=== PATIENT | male | born 1990 | race Caucasian/White ===

== ENCOUNTER 2018-12-22 19:43 | Inpatient (IN) | payer MEDICAID, OTHER ==
--- NOTE | 2018-12-22 20:33 | ED ---
General Adult HPI - General Chief complaint: Psychiatric Symptoms Stated complaint: Mental Health Time Seen by Provider: 12/22/18 20:04 Source: police, RN notes reviewed, old records reviewed Mode of arrival: ambulatory Limitations: no limitations - History of Present Illness Initial comments: 28-year-old male presents for psychiatric evaluation. Patient is uncertain why he was here, police came to his home and picked him up. He has been petitioned, states he's been noncompliant with his medications. No reported suicidal or homicidal ideation. Patient has no physical complaints. He does appear paranoid on exam. No previous psychiatric admissions at this institution. - Related Data Allergies Allergy/AdvReac Type Severity Reaction Status Date / Time No Known Allergies Allergy Verified 12/22/18 19:49 Review of Systems ROS Statement: Those systems with pertinent positive or pertinent negative responses have been documented in the HPI. ROS Other: All systems not noted in ROS Statement are negative. Past Medical History Past Medical History: No Reported History History of Any Multi-Drug Resistant Organisms: None Reported Past Surgical History: No Surgical Hx Reported Past Psychological History: Anxiety, Bipolar, Depression Smoking Status: Current some day smoker Past Alcohol Use History: None Reported Past Drug Use History: None Reported General Exam Limitations: no limitations General appearance: alert, in no apparent distress Head exam: Present: atraumatic, normocephalic Eye exam: Present: normal appearance, PERRL ENT exam: Present: normal exam Neck exam: Present: normal inspection. Absent: tenderness Respiratory exam: Present: normal lung sounds bilaterally. Absent: respiratory distress, wheezes Cardiovascular Exam: Present: regular rate, normal rhythm GI/Abdominal exam: Present: soft. Absent: distended, tenderness Neurological exam: Present: alert, oriented X3 Psychiatric exam: Present: flat affect. Absent: suicidal ideation Skin exam: Present: warm, dry, intact. Absent: cyanosis, diaphoretic Course Vital Signs 12/22/18 19:44 Temperature 97.7 F Pulse Rate 98 Respiratory 18 Rate Blood Pressure 133/74 O2 Sat by Pulse 98 Oximetry Medical Decision Making - Medical Decision Making Patient evaluated by EPS, further history is obtained from the patient's mother, he is a paranoid schizophrenic and has had recent admission at an outside facility. He is not taking his medications, not eating, sleeping in the basement. It is felt at this time that the patient will be admitted for further psychiatric evaluation and treatment. Disposition Clinical Impression: Acute psychosis, Depression Disposition: ADMITTED IP TO THIS HOSP Condition: Stable Is patient prescribed a controlled substance at d/c from ED?: No Referrals: None,Stated [Primary Care Provider] - 1-2 days Decision to Admit Reason: Admit from EC Decision Date: 12/22/18 Decision Time: 21:22
[2018-12-22] MEDS ORDERED: LORazepam 2 MG/ML INJ IM STA (21:22)
[2018-12-22 21:35] LABS: Amphetamine Screen,Urine Not Detected (NotDetected); Barbiturate Screen,Urine Not Detected (NotDetected); Benzodiazepines Screen,Urine Not Detected (NotDetected); Cocaine Screen,Urine Not Detected (NotDetected); Methadone Screen, Urine Not Detected (NotDetected); Opiate Screen,Urine Not Detected (NotDetected); Oxycodone Screen, Urine Not Detected (NotDetected); Phencyclidine Screen,Urine Not Detected (NotDetected); Tricyclic Antidepressant,Urine Not Detected (NotDetected); Urn Cannabinoid Scrn Not Detected (NotDetected)
[2018-12-22] MEDS ORDERED: ACETAMINOPHEN TAB 325 MG TAB PO STA (21:37)
[2018-12-22] MEDS ORDERED: ZIPRASIDONE 20 MG VIAL IM PRN (21:44)
[2018-12-22] MEDS ORDERED: MAGNESIUM HYDROXIDE 2,400 MG/10 ML CUP PO PRN (21:44)
[2018-12-22] MEDS ORDERED: LORazepam 2 MG/ML INJ IM PRN (21:46)
[2018-12-23 00:37] VITALS: TEMP 98.2
[2018-12-23] MEDS: NICOTINE 14MG/24HR PATCH TRANSDERM SCH (10:30)
--- NOTE | 2018-12-23 10:35 | HP ---
HISTORY AND PHYSICAL DATE OF SERVICE: 12/23/2018 IDENTIFYING DATA: This patient is a 28-year-old single male admitted to the mental health unit on a pickup order for acute symptoms of psychosis. HISTORY OF PRESENT ILLNESS: The patient presents with a petition completed by the patient's mother saying "Александр has refused my request to see doctors or take any medications." The clinical certificate indicates the patient is not taking medication and is unable to understand need for treatment. The patient is found in his room. He reluctantly follows me to an interview room. He immediately begins crying but does not describe why. He makes several statements indicating "they" have said several scary things. He reports that the police told him that he was coming here to get his penis removed. He reports that he has parasites that appear to be tadpoles. During our conversation he appears to be actively responding to presumed auditory hallucinations. Several times during the session he will burst into laughter, which is out of context of the attempted conversation. He is argumentative. He indicates feeling unsafe. Nursing reports from the ER states that the patient has been isolating in his room, not taking medications. He has been sleeping with her shoes and his coat on out of fear. He is a poor historian at this time and does not appropriately participate in the rest of the interview. PAST PSYCHIATRIC HISTORY: It seems unlikely, but he denies any past history of psychiatric evaluation. When reviewing medications, he spontaneously states paliperidone but but provides no other information. Unknown if he has any history of suicide attempts. He states that he worked with an outpatient clinic in [place], but provides no further information. PAST MEDICAL HISTORY: Unknown. ALLERGIES: No known drug allergies. CHEMICAL DEPENDENCY HISTORY: He indicates that he will intermittently drink alcohol, again he does not specify a quantity or frequency. He reports no use of illicit drugs. Unknown if he has ever been admitted to an inpatient chemical dependency unit. FAMILY PSYCHIATRIC AND CHEMICAL DEPENDENCY HISTORY: Unknown. PERSONAL HISTORY: The patient is 28 years old. He states he is single with no children. He resides with his mother. He indicates he has one brother and one sister. He is unemployed. It is unknown if he has a disability income. He states he has been trying to save for his own apartment, but has never received a disability check and believes someone is stealing them. LEGAL HISTORY: Unknown. ABUSE HISTORY: Unknown. He states that he has a high school education and an engineering degree from [employer]. MENTAL STATUS EXAMINATION: The patient is a male appearing his stated age. He is wearing eye glasses. He has a mustache and part of a durham. He is dressed in hospital gown. He has a disheveled appearance. Eye contact is staring in nature. As soon as he sits down he becomes tearful and weeps throughout the session. He has several episodes where he bursts into laughter in a bizarre fashion. He spontaneously describes paranoid and persecutory thoughts. He continues to refer to "they" but will not specify who that is. Many of his statements refer to him being harmed. Several times he asks me who I am talking to and he asks "where is my body." He provides no answer when asked about suicidal or homicidal thoughts or hallucinations. Insight and judgment are poor. He provides no answers to questions in terms of cognitive testing. He demonstrates no involuntary repetitive movements. He can be argumentative and mildly irritable during the session, but demonstrated no verbal or physical aggressiveness. STRENGTHS: Housing. WEAKNESSES: Noncompliance with treatment. INTELLECT: Average IMPRESSION: 1. Schizophrenia. 2. Rule out alcohol use disorder. PLAN: The patient has been admitted to the mental health unit involuntarily. I will complete a second clinical certificate. The patient is demonstrating acute symptoms of psychosis. His thought process is disorganized. He is requiring treatment at this time. I will offer Invega 6 mg daily. Attempts were made to discuss the medication with him. Should he refuse we will address this further with the probate court process. He will be seen by Internal Medicine for routine history and physical exam. Social Work will attempt to meet with the patient to complete a psychosocial assessment. We will involve family in treatment and discharge planning as he will allow. MMODL / IJN: [id number] /
[2018-12-23] MEDS: PALIPERIDONE 6 MG TAB.ER.24 PO SCH (10:38)
--- NOTE | 2018-12-23 18:44 | P.MDCNMH ---
History of Present Illness H&P Date: 12/23/18 Chief Complaint: left foot pain. 28-year-old male with PMHof anxiety, bipolar and depression presents to the ED for psychiatric evaluation. [facility] is consulted for medical management of the patient. Patient currently appears delusional in his speech. Patient reports pain in his left foot along with a rash on the plantar surface of his left foot that has been ongoing for an unspecified amount of time. Patient initially stated that this occurred after walking barefoot for a long period of time in [place]. Patient then changed his mind, states that he was walking in [facility]. He also reports that he is taking showers in dirty bathrooms, might have caught an infection. Patient reports having a fever last night. Otherwise, he does not provide too much information. Patient reports that he "keeps waking up with tiny feet" and "I'm in so much trouble". Patient also appears afraid that his feet might be amputated. Near the end of questioning, patient reported that this was a waste of this time and walked out of the room. A few minutes later, I was approached by the patient requesting Adderall. Review of Systems All systems: negative Past Medical History Past Medical History: No Reported History History of Any Multi-Drug Resistant Organisms: None Reported Past Surgical History: No Surgical Hx Reported Past Psychological History: Anxiety, Bipolar, Depression Smoking Status: Current some day smoker Past Alcohol Use History: None Reported Past Drug Use History: None Reported Medications and Allergies Allergies Allergy/AdvReac Type Severity Reaction Status Date / Time No Known Allergies Allergy Verified 12/22/18 19:49 Physical Exam Vitals: Vital Signs Temp Pulse Pulse Resp BP BP Pulse Ox 12/23/18 00:37 98.2 F 12/22/18 22:00 111 H 14 130/78 12/22/18 21:38 100.0 F H 114 H 18 109/82 98 12/22/18 19:44 97.7 F 98 18 133/74 98 Intake and Output 12/23/18 12/23/18 12/23/18 06:59 14:59 22:59 Other: Weight 77 kg Patient refuses full physical exam. However, he is willing to have his foot evaluated. There is some tenderness along the plantar aspect of the left lower extremity. Yellowing of the skin around the first metatarsal joint, thickened skin. No erythema or discharge. 2+ dorsalis pedis pulses. Cranial Nerve Examination - Cranial Nerves Cranial Nerve II- Optic: Intact Cranial Nerve III- Oculomotor: Intact Cranial Nerve IV- Trochlear: Intact Cranial Nerve V- Trigeminal: Intact Cranial Nerve - Abducens: Intact Cranial Nerve VII- Facial: Intact Cranial Nerve VIII- Auditory: Intact Cranial Nerve IX- Glossopharyngeal: Intact Cranial Nerve X- Vagus: Intact Cranial Nerve XI- Accessory: Intact Cranial Nerve XII- Hypoglossal: Intact Results CBC & Chem 7: 12/23/18 18:42 Assessment and Plan Assessment: Assessment and Plan 1. Left foot pain 2. Tachycardia 3. Low-grade fever 4. Bipolar disorder, anxiety, depression 1. Plantar warts versus fungal infection. Will obtain an x-ray of his left foot. Start clotrimazole cream for fungal infection. Pain management with Tylenol. Patient would benefit from evaluation by a town justice. 2. Heart rate as high as 114. Possibly related to anxiety. We will obtain an EKG and continue to monitor his vital signs. 3. T-max 100 F last night in the ED. Obtain CBC to check for leukocytosis. No obvious signs of infection. Continue to monitor vital signs. 4. Management as per psychiatry. Thank you for this consult. Please call with any additional questions. Or if patient further willing to be seen. Disregard CN2-12 grossly intact, patient refused all examination besides his feet.
[2018-12-23 19:41] LABS: Basophils % (A) 0 %; Eosinophils # (A) 0.2 k/uL (0-0.7); Eosinophils % (A) 2 %; HCT 41.7 % (39.0-53.0); HGB 14.5 gm/dL (13.0-17.5); Lymphocytes # (A) 1.9 k/uL (1.0-4.8); Lymphocytes % (A) 21 %; MCH 28.1 pg (25.0-35.0); MCHC 34.8 g/dL (31.0-37.0); MCV 80.7 fL (80.0-100.0); Mean Platelet Volume 9.5; Monocytes # (A) 0.4 k/uL (0-1.0); Monocytes % (A) 5 %; Neutrophils # (A) 6.5 k/uL (1.3-7.7); Neutrophils % (A) 71 %; Platelet Count 220 k/uL (150-450); RBC 5.17 m/uL (4.30-5.90); RDW 15.5 % (11.5-15.5); WBC 9.1 k/uL (3.8-10.6)
[2018-12-23] MEDS: CLOTRIMAZOLE 1% CREAM 15 GM TUBE TOPICAL SCH (21:02)
[2018-12-23] MEDS: ACETAMINOPHEN TAB 325 MG TAB PO PRN (21:19)
[2018-12-23] MEDS: LORazepam 1 MG TAB PO PRN (21:22)
[2018-12-24] MEDS: CLOTRIMAZOLE 1% CREAM 15 GM TUBE TOPICAL SCH ×2 (09:45→19:48)
[2018-12-24] MEDS: PALIPERIDONE 6 MG TAB.ER.24 PO SCH (09:45)
[2018-12-24] MEDS: NICOTINE 14MG/24HR PATCH TRANSDERM SCH (09:45)
--- NOTE | 2018-12-24 10:25 | P.PN ---
Progress Note - Text Interval history: The patient is found in his room he prefers not to follow me to an interview room. He is mildly irritable upon approach. He continues to make bizarre statements that are sometimes conflicting. Nursing staff report that the patient has refused the Invega oral dose yesterday and today. He reported to me that he has been taking the medication. He continues to make several statements that "they" are going to do things harmful to him. Mental status exam: The patient is alert he is lying in bed eye contact is inter mittent. He describes a tired mood. He continues to make bizarre statements he describes paranoid first tour thoughts. He is somewhat argumentative in conversation. He demonstrated no verbal or physical aggressiveness he demonstrates no involuntary Movements. He does not provide answers to several questions asked specifically referring to suicidal homicidal ideation. Insight and judgment are poor. Affect is bland. Plan: The patient continues to experience acute symptoms of psychosis with disorganization of thought. He is refusing oral antipsychotic medication. A second clinical certificate was completed we will await his deferral conference. We will continue to monitor him for safety he is encouraged to participate appropriately in the milieu. Vital signs reviewed.
--- NOTE | 2018-12-25 08:43 | P.PN ---
Progress Note - Text Interval history: The patient is found in the hallway he follows me to an interview room. He reports his mood is tired. He states that he is being gassed in his room. He states at night his feet are being scraped off and he is receiving injections. He reports feeling confused. He spontaneously states that he has a deferral conference today. He reports that he does not tell the body technician/painter that he is not taking medications and he will "win". Mental status exam: The patient is alert he is dressed in his own clothing hygiene grooming impaired. He has a staring eye contact. He describes a mood that is tired. His affect is variable during the interaction. For the most part it's fairly [place] but then he will have a few episodes of laughter which is inappropriate to the context of the conversation. He appears to be responding to auditory hallucinations. He will make a statement and then immediately after say "I don't know who just said that". He conveys paranoid and persecutory thoughts. Thought process is not well organized as he jumps from topic to topic. He demonstrates no verbal or physical aggressiveness. He can be argumentative at times. He demonstrates no involuntary repetitive movements. Insight and judgment are poor. Plan: The patient will continue being offered the Invega. Once again I attempted to discussion regarding his psychotropic medications. He states he's been on all of them. It appears that he has been on an invega systemic in the past as he was able to name some of the doses. We will monitor him for safety and encourage participation in the milieu. We will await the outcome of his deferral conference. Vital signs reviewed.
[2018-12-25] MEDS: CLOTRIMAZOLE 1% CREAM 15 GM TUBE TOPICAL SCH ×2 (09:10→20:46)
[2018-12-25] MEDS: NICOTINE 14MG/24HR PATCH TRANSDERM SCH (09:10)
[2018-12-25] MEDS: PALIPERIDONE 6 MG TAB.ER.24 PO SCH (09:10)
[2018-12-26] MEDS: PALIPERIDONE 6 MG TAB.ER.24 PO SCH (08:09)
[2018-12-26] MEDS: NICOTINE 14MG/24HR PATCH TRANSDERM SCH (08:09)
[2018-12-26] MEDS: CLOTRIMAZOLE 1% CREAM 15 GM TUBE TOPICAL SCH ×2 (08:10→21:11)
--- NOTE | 2018-12-26 10:28 | P.PN ---
Progress Note - Text Interval history: The patient is found in his room. He is awake. He asks "why are you doing this to me". He indicates he feels tired. He continues to refuse the Invega 6 mg. He did meet with the trust and estates attorney for the deferral conference and did not defer. He states his trust and estates attorney told him she would be back later this week to meet again. During our discussion he chooses not to answer several questions asked. Mental status exam: The patient is lying in bed awake he makes very brief eye contact and then looks up at the ceiling. He continues to make bizarre statements. He continues to describe paranoid and persecutory thinking spontaneously. He does not provide answers to several questions asked of him. He demonstrates no involuntary repetitive movements. He demonstrates no verbal or physical aggressiveness. He continues to be argumentative during the conversation. Affect is bland. Insight and judgment are poor. Plan: The patient remains acutely psychotic he is not willing to comply with medication as part of his treatment at this time. He has not signed the deferral agreement and we are awaiting a full court hearing. He requires continued psychiatric hospitalization for his acute symptoms of psychosis. Vital signs reviewed.
[2018-12-26] MEDS: ACETAMINOPHEN TAB 325 MG TAB PO PRN (21:11)
--- NOTE | 2018-12-27 09:52 | P.PN ---
Progress Note - Text Interval history: The patient is found in his room he follows me to an interview room. He indicates feeling frustrated that he is in the hospital. He states there is no reason for it. He reports at home he was caring for himself adequately in the petition [facility] because he wouldn't use his phone. He continues to spontaneously state that he is refusing medication and he will not take it. He continues to be argumentative. He alleges that I never met with him on the day I completed my evaluation and therefore I had no reason to complete a certificate. Staff continue to report observed psychotic behavior. Social work has been unable to complete a psychosocial assessment. He indicates his aunt came up to visit but he states he refuses to speak with her as she had petitioned him in the past. Mental status exam: The patient is alert hygiene grooming impaired. Eye contact is staring in nature. He is wearing his eyeglasses. He is dressed in his own clothing. He has a mildly irritable affect today. Is predominantly argumentative during our session. He describes paranoid and persecutory thoughts incidentally as he speaks. Again there are questions that he will not answer and as will stare back at me for prolonged periods of time. Insight and judgment poor. He demonstrates no verbal or physical aggressiveness. He demonstrates no involuntary repetitive movements. He does not appear hypomanic or manic. Plan: We will continue to offer psychotropic medication to address his psychosis. The patient has refused the invega daily. His court hearing is not until 01/02/2019. He is encouraged to participate in the milieu. We will monitor his by mouth intake we will monitor him for safety. His acute symptoms of psychosis continue to cause significant psychosocial dysfunction.
[2018-12-27] MEDS: CLOTRIMAZOLE 1% CREAM 15 GM TUBE TOPICAL SCH ×2 (09:58→21:09)
[2018-12-27] MEDS: PALIPERIDONE 6 MG TAB.ER.24 PO SCH (09:58)
[2018-12-27] MEDS: NICOTINE 14MG/24HR PATCH TRANSDERM SCH (09:58)
--- NOTE | 2018-12-28 08:06 | P.PN ---
Progress Note - Text Interval history: The patient is found in his room he prefers not to speak in an interview room today. The patient is evasive in providing answers to questions. He continues to make spontaneous bizarre statements. He states that we are putting something in his room to make him feel tired. He remains argumentative. He indicates his drop hammer operator helper will be visiting him today. He continues to refuse oral medication. Mental status exam: The patient is alert he is awake he is lying in bed he is wearing his eyeglasses he is dressed in his own clothing. He has a disheveled appearance hygiene appears impaired. He has some spontaneous speech. He demonstrates what appears to be thought blocking. He may be responding to auditory hallucinations. Insight and judgment are poor. He spontaneously make statements indicating he is having paranoid persecutory thoughts. He demonstrates no verbal or physical aggressiveness he demonstrates no involuntary repetitive movements. Again there are several questions to which she will provide no response. Plan: The patient remains acutely psychotic. His thoughts are disorganized. He requires use of an antipsychotic medication which he is refusing. We are awaiting his court date on 01/02/2019. Reality orientation is provided. He is encouraged to participate in the milieu. Vital signs reviewed.
[2018-12-28] MEDS: CLOTRIMAZOLE 1% CREAM 15 GM TUBE TOPICAL SCH ×2 (09:09→21:54)
[2018-12-28] MEDS: PALIPERIDONE 6 MG TAB.ER.24 PO SCH (09:10)
[2018-12-28] MEDS: NICOTINE 14MG/24HR PATCH TRANSDERM SCH (09:10)
[2018-12-29] MEDS: NICOTINE 14MG/24HR PATCH TRANSDERM SCH (08:06)
[2018-12-29] MEDS: PALIPERIDONE 6 MG TAB.ER.24 PO SCH (08:06)
[2018-12-29] MEDS: CLOTRIMAZOLE 1% CREAM 15 GM TUBE TOPICAL SCH ×2 (08:06→21:13)
--- NOTE | 2018-12-29 12:19 | P.PN ---
Progress Note - Text Progress Note Date: 12/29/18 Interval history: Patient is seen in cross coverage today. He was cooperative to come to the interview room with a second attempt. Per chart history he has not been taking inVega. He makes reference to something about it being dosed at bedtime, it is not clear that he would take it if it was changed to bedtime. Mental status exam: He is alert, not showing any agitation. His thought processes are disorganized. He talks aloud at times as though he is talking to himself. He seems to deny any thoughts of harm to self or others. He made one reference while talking that dealt with escaping. He seems to make reference to having heard my voice before. He makes reference to them making him sit and watch static on TV. Plan: We'll continue to cover this patient through the weekend. Monitor if he is taking the inpatient unit. Per chart history he does have upcoming court hearing. Continue to monitor his status.
[2018-12-30] MEDS: CLOTRIMAZOLE 1% CREAM 15 GM TUBE TOPICAL SCH ×2 (08:19→21:24)
[2018-12-30] MEDS: NICOTINE 14MG/24HR PATCH TRANSDERM SCH (08:19)
[2018-12-30] MEDS: PALIPERIDONE 6 MG TAB.ER.24 PO SCH (08:19)
--- NOTE | 2018-12-30 15:57 | P.PN ---
Progress Note - Text Progress Note Date: 12/30/18 Interval history: Patient is seen again in cross coverage today. He reports that he is not attending groups, makes reference to being involuntary. He is aware of his upcoming court hearing. He inquires whether I'm a drug pusher. Mental status exam: He is alert and cooperative with coming to the interview room. Thought processes are disorganized. He makes reference to his legs not being his legs. He denies any thoughts of harm to self or others and says he is suppressing that. He does not show any significant agitation. Plan: We'll continue to monitor patient's status. He has upcoming court hearing on the .
[2018-12-31] MEDS: PALIPERIDONE 6 MG TAB.ER.24 PO SCH (09:29)
[2018-12-31] MEDS: CLOTRIMAZOLE 1% CREAM 15 GM TUBE TOPICAL SCH ×2 (09:29→21:01)
[2018-12-31] MEDS: NICOTINE 14MG/24HR PATCH TRANSDERM SCH (09:29)
--- NOTE | 2018-12-31 10:27 | P.PN ---
Progress Note - Text Interval history: The patient is found in his room initially he was resistant to getting up and speaking with me. About an hour later he was in the hallway and was willing to speak with me in an interview room. He indicates he is experiencing ghosts. He states that they stay with him and make him say things. During the conversation he was more verbal and was verbalizing some of the internal dialogue. As he speaks he refers to [place] in a third person. Mental status exam: The patient is alert he is dressed in his own clothing he has a disheveled appearance he is wearing his eyeglasses. He is seated in the chair. He looks about the room and often looks down to the left. He verbalizes what appears to be an internal dialogue. Today he states that there are ghosts in this office and that's whom he is conversing with. He makes several bizarre statements to himself. He demonstrates lability of affect. Often he will burst into laughter which is discordant with the conversation we are attempting to have. He often provides no answer to questions asked. Insight and judgment are poor. He continues to refuse medication. He demonstrates no verbal or physical aggressiveness. Plan: The patient remains acutely psychotic. His symptoms of psychosis, psychosocial dysfunction. He requires medication treatment which he is refusing. We have court scheduled for Monday in the hopes of obtaining a treatment order. We will monitor him for safety provide reality orientation when possible. Vital signs reviewed.
[2019-01-01] MEDS: NICOTINE 14MG/24HR PATCH TRANSDERM SCH (09:07)
[2019-01-01] MEDS: PALIPERIDONE 6 MG TAB.ER.24 PO SCH ×2 (09:07→09:09)
[2019-01-01] MEDS: CLOTRIMAZOLE 1% CREAM 15 GM TUBE TOPICAL SCH ×2 (09:07→21:10)
--- NOTE | 2019-01-01 09:31 | P.PN ---
Progress Note - Text Interval history: The patient is found in the hallway he follows me to an interview room. The patient continues to demonstrate an ongoing internal dialogue. He asked questions that he answers and we'll refer to himself in the third person at times. He continues to make bizarre paranoid-type statements. He states I'm not qualified to speak to him about the court hearing. He states he knows that hearing is for guardianship and he will receive probation. Nursing staff report that he took the invega for the first time this morning. I attempted to discuss this with him without success. Mental status exam: The patient is alert he has a disheveled appearance hygiene appears impaired. He is dressed in his own clothing. He is wearing his eyeglasses. He seated in the chair at times he has a staring eye contact and at other times she seems to be looking back and forth rapidly from left to right. He maintains a bland affect. He provides no answers to several questions that I ask. He is observed speaking with himself back and forth for several minutes. He demonstrates no verbal or physical aggressiveness. In observing the dialogue he spontaneously describes paranoid and persecutory thoughts. Insight and judgment are poor. Plan: The patient remains acutely psychotic with acute disorganization of thought. Today is the first day that he has complied with the oral invega. He has his court hearing tomorrow. We will monitor him for safety. He is encouraged to appropriately participate in the milieu. Vital signs reviewed.
[2019-01-02] MEDS: PALIPERIDONE 6 MG TAB.ER.24 PO SCH (10:08)
[2019-01-02] MEDS: CLOTRIMAZOLE 1% CREAM 15 GM TUBE TOPICAL SCH ×2 (10:15→20:43)
[2019-01-02] MEDS: NICOTINE 14MG/24HR PATCH TRANSDERM SCH (10:15)
--- NOTE | 2019-01-02 10:25 | P.PN ---
Progress Note - Text Interval history: The patient is found in his room he follows me to an interview room. He states that he is inhabited by several ghosts and they're fighting over time that they can use his body. He asked several disorganized questions. He continues to describe paranoid and persecutory thoughts. Today he did not take the invega as prescribed. Again he discussed the court hearing and I attempted to answer his questions. Mental status exam: The patient remains acutely psychotic. He has a disheveled appearance his hygiene appears impaired. He has a staring eye contact. He indicates that ghosts are using his body and are deciding which days they will use it. He describes other paranoid and persecutory themes. There are times where he will burst out into laughter. He has impaired insight and impaired judgment. Again there are questions to which she provides no answer. He demonstrates no verbal or physical aggressiveness. He can be argumentative at times. Plan: The patient has court scheduled for this afternoon. We will monitor him for safety and encourage participation in the milieu. If we are granted a treat ment order we will initiate An NELSON if he refuses the invega. Vital signs reviewed. He is encouraged to participate in the milieu.
[2019-01-03] MEDS: PALIPERIDONE 6 MG TAB.ER.24 PO SCH (08:25)
[2019-01-03] MEDS: CLOTRIMAZOLE 1% CREAM 15 GM TUBE TOPICAL SCH ×2 (08:37→20:31)
[2019-01-03] MEDS: NICOTINE 14MG/24HR PATCH TRANSDERM SCH (08:37)
--- NOTE | 2019-01-03 10:15 | P.PN ---
Progress Note - Text Interval history: The patient is found in the hallway he follows me to an interview room. He expresses feelings of frustration that he would receive an injection if he does not take the oral invega. A treatment order was granted yesterday. He states he doesn't believe that includes medication. Staff reported that he slept 6 hours last evening. The patient is more guarded today. He makes a few brief statements that are paranoid in nature. He indicates that he ate breakfast. Nursing staff report that the patient did comply with the invega this morning. Mental status exam: The patient is alert he has a disheveled appearance with impaired hygiene. He is dressed in the same clothing he is wearing his eyeglasses. He has a more irritable affect today he is argumentative at times. He continues to describe being inhabited by ghosts. He accuses me of making statements today that were not made regarding the ghosts. He continues to demonstrate odd affect. He will suddenly burst into brief laughter. Insight and judgment are poor. He demonstrates no verbal or physical aggressiveness. He demonstrates no involuntary repetitive movements. He reports no suicidal or homicidal ideation. Plan: The patient will continue being offered the invega 6 mg daily. We will allow this medication time to demonstrate efficacy as he is just started taking it. He requires continued psychiatric hospitalization due to his acute psychosis. Vital signs reviewed. Reality orientation is provided. He is encouraged to participate in the milieu. We'll continue monitoring him for safety.
[2019-01-04] MEDS: NICOTINE 14MG/24HR PATCH TRANSDERM SCH (09:04)
[2019-01-04] MEDS: PALIPERIDONE 6 MG TAB.ER.24 PO SCH (09:05)
[2019-01-04] MEDS: CLOTRIMAZOLE 1% CREAM 15 GM TUBE TOPICAL SCH ×2 (09:06→21:06)
--- NOTE | 2019-01-04 11:47 | P.PN ---
Progress Note - Text Interval history: The patient is found in group he follows me to an interview room. It remains challenging trying to hold a discussion with him. He will make a random statement or ask a random question. He continues to demonstrate an internal dialogue. He remains argumentative with me today. He accuses me of trying to trick him in conversation and accuses me of making statements that were not said. Staff report that he will attend groups. He has been focused on female patients and we are directing him away from female peers. Mental status exam: The patient is alert he has a disheveled appearance hygiene is impaired he is dressed in the same clothing he is wearing his eyeglasses. He seated calmly in the chair he has a staring eye contact and other times he looks back and forth as he appears to be engaged in an internal dialogue. His affect is irritable during our session. He is argumentative. He continues to spont aneously demonstrate paranoid and persecutory thinking. Insight and judgment are poor. He demonstrates no involuntary reported of movements. Plan: The patient will be continued on the invega he has been compliant with only 3 doses we will give this time to demonstrate efficacy we will titrate the dose as needed. We will initiate invega systemic once we have an indication that the oral medication is working. We will monitor for safety and provide reality orientation when possible. Vital signs reviewed.
[2019-01-05] MEDS: PALIPERIDONE 6 MG TAB.ER.24 PO SCH (08:45)
[2019-01-05] MEDS: CLOTRIMAZOLE 1% CREAM 15 GM TUBE TOPICAL SCH ×2 (08:46→23:29)
[2019-01-05] MEDS: NICOTINE 14MG/24HR PATCH TRANSDERM SCH (08:46)
--- NOTE | 2019-01-05 14:27 | PN ---
PROGRESS NOTE DATE OF SERVICE: 01/05/2019 CHIEF COMPLAINT: The patient was under previous treatment order but was declining to follow up with care or take medications. He was distressed and psychotic with paranoid thinking. INTERVAL HISTORY: The patient continues to show significant thoughts of unreality. He tends to keep to himself. He had a quiet evening last night. It was documented he slept 3-1/2 hours last night. While in group yesterday, staff noted that he appeared to be having a conversation with himself which included the following, "I have never gotten in trouble, dude yes, you have, you have gotten so many DUIs, no I haven't." He attended one group today though was quite withdrawn and did not contribute anything. When I talked to him, the patient made a number of vague statements that was hard to follow his conversation. He did complain about the whole process of his being in the hospital. Noteworthy that he has taken his Invega for 4 days in a row. He has had no side effects or problems related to the medications. There is no indication of any kind of allergic reaction to Invega. He reported no specific problems or concerns relating to his Invega. MENTAL STATUS: Patient sat with some mild restlessness. He gave good eye contact. He answered questions with brief responses, some of the time his answers were somewhat tangential. He made a number of statements about saying he saw no reason for his being on medications. He had a somewhat intense manner. Early on in the interview he expressed some frustration about being in the hospital. Later on, as we talked he started smiling and seemed to have a little more comfortable interaction. His mood was reserved. He was somewhat distressed. He showed paranoid thoughts, though did not show any indication of responding directly to internal stimuli. He did make an effort to answer formal cognitive questions though he seemed to be well aware of his treatment situation and general recommendations. It is noteworthy that he stated Dr. Recinos had not indicated he would be receiving a long-acting injectable medication. He was ambulatory with normal gait and strength. There was no tremor, abnormal movements, or rigidity. ASSESSMENT: I will continue the current diagnosis and treatment plan. The patient will continue Invega oral 6 mg a day. I had an extensive discussion with the patient regarding his court ordered status. I reviewed Dr. Recinos's note from the indicating that he would be receiving Invega Sustenna. I discussed the typical dosing for Invega Sustenna. I suggested that there is a high likelihood he would be receiving the Invega Sustenna injection early in the week and that given his being on the oral medication he has demonstrated good tolerance to the medication. I discussed his court-ordered status in regards to discharge planning. ORAL / MARCUS: [id number] /
[2019-01-06] MEDS: PALIPERIDONE 6 MG TAB.ER.24 PO SCH (09:06)
[2019-01-06] MEDS: NICOTINE 14MG/24HR PATCH TRANSDERM SCH (09:07)
[2019-01-06] MEDS: CLOTRIMAZOLE 1% CREAM 15 GM TUBE TOPICAL SCH ×2 (09:07→21:17)
--- NOTE | 2019-01-06 19:44 | PN ---
PROGRESS NOTE DATE OF SERVICE: 01/06/2019. CHIEF COMPLAINT: The patient was under previous treatment order but was declining to follow up with care and take medications. He was distressed and psychotic with paranoid thinking. INTERVAL HISTORY: The patient has been doing fair. He had a quiet evening last night. It was documented that he slept 7 hours last night. Today, he has been up. He will come out in the day area. Some of the time, he will seem to wander about the unit in a very nonpurposeful manner. He did attend a group last night and seemed to tolerate feedback about that if he was going to attend groups, he needed to at least engage to some extent. Today he attended 2 groups so far and seem to manage fairly well. In an activities group, he fairly actively was involved. He did some laughing and interacted with others. When I talked to the patient, he had a more reserved manner. He did not voice any concerns or complaints. Staff who had interacted with him today stated that he did not make any comments where he talked to himself in a third person manner. It was noteworthy in my interview with him that he seemed to do that on 1 brief occasion in the interview. The patient has generally had a reasonable mood and manner. He appears to tolerate his psychotropic medications. MENTAL STATUS EXAM: Patient was in the activities room. I asked him to come out. He said that he wanted to come down to the office and talk rather than talking in the other areas in the unit. He gave fairly good eye contact. He was somewhat restless. He answered questions with brief responses. He did not say a lot. At times he made some tangential comments. He was somewhat guarded in his manner, though overall seemed to be a little more comfortable in the interview process. He smiled some. His affect was constricted though he did not appear to be as uncertain or skeptical compared to the interview yesterday. His mood was reserved, though not done or depressed. A few different times in the interview he did smile though was not clear that he was connected to anything specific in the interview. It is noteworthy that later on when I was in the office with the door open at one point, he came to the office door and then just walked away. He did not appear to be distressed. ASSESSMENT: I will continue the current diagnosis and treatment plan. I will continue psychotropic medications the same. I again reviewed with the patient that according to Dr. Recinos's note, there is a significant likelihood that he would be receiving Invega Sustenna. The patient said that it was his understanding in discussions with Dr. Recinos that if he was cooperative with oral medications, he would not be going on the long-acting injectable. The patient understands that he would be discussing this further with Dr. Recinos tomorrow. ORAL / JUAN CN: [id number] /
[2019-01-07] MEDS: NICOTINE 14MG/24HR PATCH TRANSDERM SCH (08:19)
[2019-01-07] MEDS: PALIPERIDONE 6 MG TAB.ER.24 PO SCH (08:19)
[2019-01-07] MEDS: CLOTRIMAZOLE 1% CREAM 15 GM TUBE TOPICAL SCH ×2 (08:19→21:41)
--- NOTE | 2019-01-07 09:41 | P.PN ---
Progress Note - Text Interval history: The patient is found in his room he follows me to an interview room. He states his mood is pretty good. He reports he had a visit from family over the weekend. He indicates he has attended most groups he is just sleeping in this morning. He initially states that he hasn't been experiencing any voices or ghosts. As the session progressed however he began discussion with a presumed auditory hallucination. He accuses me of never answering his questions. He states the staff are trying to poison him with sour milk. He asks what the date is and then states he does not believe that is the actual date. Mental status exam: The patient is alert he is dressed in his own clothing he has a disheveled appearance. Eye contact is staring in nature. He initially reports his mood is pretty good initially he is more cooperative in the session and provide some answers. This quickly deteriorates as the interaction p rogresses and he demonstrates paranoid and persecutory thoughts and speech. Again he becomes accusation on argumentative. Insight and judgment poor. He states he does not need to be on medication. He demonstrated no verbal or physical aggressiveness he demonstrates no involuntary repetitive movements. Affect was initially bland and then he becomes mildly irritable. Plan: The patient will continue on the Invega we will titrate the dose to 9 mg and switched to bedtime dosing. I will confer with the treatment team to further assess his progress. He requires continued psychiatric hospitalization. I'm hoping that the Invega demonstrate some efficacy and then we will convert him to the Invega Sustenna injection. Vital signs reviewed.
[2019-01-07] MEDS ORDERED: PALIPERIDONE 3 MG TAB.ER.24 PO ONE (21:00)
--- NOTE | 2019-01-08 09:02 | P.PN ---
Progress Note - Text Interval history: The patient is found in his room he follows me to an interview room. He was offered an opportunity speak in the [facility] but insisted that we meet in my office. He states he planned on getting up early but he did sleep through breakfast. He reports feeling tired. Staff report he slept 5 hours. He likely had more sleep than that as he was found asleep in bed this morning. Mental status exam: The patient is alert he has a disheveled appearance he is dressed in the same clothing is yesterday hygiene grooming impaired. Eye contact is staring in nature. He continues to demonstrate a mildly irritable sarcastic affect. He is argumentative. He states he wants to be discharged. He at times denies experiencing any auditory or visual hallucinations and then fairly quickly refers to hallucinations stating "they told me my mother is ". He continues to express paranoid and persecutory thoughts. Insight and judgment are poor. He continues to disagree with the use of medication. He demonstrates no verbal or physical aggressiveness. He will sit there staring for extended periods of time without speaking. He demonstrates no involuntary repetitive movements. Plan: The patient remains acutely psychotic. There is been little improvement so far in terms of psychosis. We will give the increased dose of invega time to demonstrate efficacy. We will monitor him for safety and encourage appropriate participation in the milieu. Due to his acute psychosis he remains at risk and requires continued psychiatric hospitalization. Vital signs reviewed.
[2019-01-08] MEDS: CLOTRIMAZOLE 1% CREAM 15 GM TUBE TOPICAL SCH ×2 (09:11→20:47)
[2019-01-08] MEDS: NICOTINE 14MG/24HR PATCH TRANSDERM SCH (09:12)
[2019-01-08] MEDS: PALIPERIDONE 3 MG TAB.ER.24 PO SCH (20:43)
[2019-01-09] MEDS: NICOTINE 14MG/24HR PATCH TRANSDERM SCH (09:31)
--- NOTE | 2019-01-09 10:24 | P.PN ---
Progress Note - Text Interval history: The patient's found in his room he prefers not to speak in an interview room today. He indicates he is tired. He states it's because of the medication he is receiving. He states I'm attempting to have a conversation with someone who is not there. He spontaneously describes other paranoid and persecutory thoughts. He had no questions for me today. He did not wish to discuss his current medication at this time. Mental status exam: The patient remains acutely psychotic. He is resting in bed he is covered with a sheet. He provides some verbal responses. He remains mildly irritable argumentative. He continues to spontaneously describe symptoms of psychosis. He demonstrates paranoid and persecutory thinking. He reports that the person I was conversing with was not Александр. Insight and judgment are poor. He is demonstrating no verbal or physical aggressiveness. He is demonstrating no involuntary repetitive movements. Plan: The patient will continue on the invega. We will monitor him for safety. Encouraged participate in the milieu. Vital signs reviewed. He remains acutely psychotic and requires continued psychiatric hospitalization as he is slow to respond to medication intervention so far.
[2019-01-09] MEDS: PALIPERIDONE 3 MG TAB.ER.24 PO SCH (20:28)
[2019-01-10] MEDS: NICOTINE 14MG/24HR PATCH TRANSDERM SCH (10:20)
--- NOTE | 2019-01-10 11:18 | P.PN ---
Progress Note - Text Interval history: The patient's found in his room sleeping. He is verbally arousable. He states that he feels tired. Staff report that he has been eating but not attending groups. He has not been attending to hygiene. He reportedly did not let housekeeping in the room clean. He states "you are ruining my life, what do you want?" Mental status exam: The patient is alert but tired he makes no eye contact. He answers select questions and remained silent at other times. He continues to demonstrate paranoid and persecutory thoughts spontaneously. He is mildly agitated but threatens no violence. He demonstrates no involuntary repetitive movements. He denies having any thoughts of harming himself or others. Hygiene and grooming are impaired. Insight and judgment are poor. Again he is only partially cooperative. Plan: The patient will be continued on the invega as written we will monitor for safety we will monitor for any improvement of his acute psychosis. He is encouraged participate in the milieu although he is resistant. Vital signs reviewed. He continues to require inpatient psychiatric hospitalization.
[2019-01-10] MEDS: PALIPERIDONE 3 MG TAB.ER.24 PO SCH (21:54)
--- NOTE | 2019-01-11 09:09 | P.PN ---
Progress Note - Text Interval history: The patient is found in his room he refuses to speak with me in an interview room. He only answers a few questions this morning. He indicates he feels tired. He states he will not attend groups. He states that he doesn't want his mother to visit because "she treats me like a panda". He verbalizes no questions regarding his medication. Mental status exam: The patient is lying in bed he is verbally arousable he keeps himself covered with a bedsheet. There is no eye contact. There is an older upon entering the room indicating impaired hygiene. He offers very little spontaneous speech she answers only a few questions and then remain silent. He continues to verbalize paranoid persecutory thoughts. He states he has decided not to attend groups. He is demonstrating no verbal or physical aggressiveness. He is demonstrating no involuntary repetitive movements in is much as I can observe him covered with a sheet. Insight and judgment are poor. Plan: The patient remains psychotic. We will continue the invega 9 mg at bedtime. We will monitor him for safety and encourage participation in the milieu. We will look for opportunities to provide reality orientation. He requires continued psychiatric hospitalization. Vital signs reviewed.
[2019-01-11] MEDS: NICOTINE 14MG/24HR PATCH TRANSDERM SCH (09:29)
[2019-01-11] MEDS: PALIPERIDONE 3 MG TAB.ER.24 PO SCH (20:24)
[2019-01-12] MEDS: NICOTINE 14MG/24HR PATCH TRANSDERM SCH (08:05)
--- NOTE | 2019-01-12 11:56 | P.PN ---
Progress Note - Text Progress Note Date: 01/12/19 Interval history: Reviewed chart and discussed with nursing staff this morning. Patient was interviewed my office and that discussion about involuntary stay and what that means to him. He states that he is not suicidal homicidal why should we keep him. We discussed in detail his involuntary status and how he became to be admitted to the hospital. He has been degrees of affect while discussing treatment and then changes subjects to the weather. Mental status examination: This is a 28-year-old male who looks his stated age and is dressed in casual and is walking the hallway when asked to come to the office. Speech and language slow monotone and soft in nature. Attitude and behavior is guarded withdrawn. Affect flat blunted constricted but occasional smile. Orientation is to person place time and not situation. Thought content and is delusional at times. Risk factors denies being suicidal homicidal. Perception is still has auditory hallucinations and tries to defer and any questions asking in further detail. Thought process is concrete and circumstantial and tangential in nature. Concentration and attention is impaired per observation and interview with the patient. Recent memory and remote memory appears to be impaired 1 asking questions. Intelligence below average. Judgment and insight are poor. Plan is to stay on his Invega 9 mg by mouth daily and remain on 15 minute checks for safety throughout the day. We'll follow observed for any further ma nifestations of psychosis and make medication adjustments as needed.
[2019-01-12] MEDS: PALIPERIDONE 3 MG TAB.ER.24 PO SCH (20:57)
[2019-01-13] MEDS: NICOTINE 14MG/24HR PATCH TRANSDERM SCH (08:53)
--- NOTE | 2019-01-13 10:04 | P.PN ---
Progress Note - Text Progress Note Date: 01/13/19 Interval history: Reviewed chart this morning and discussed with nursing staff. Interviewed patient and he would not leave his room and wanted to sleep then asked him if he was suicidal homicidal and denies. He immediately got us was often tangential and states all I want to go back to bed I'm tired its Monday morning. Mental status examination this is a 28-year-old male who dressed casual is bizarre in nature and appears his stated age. Speech and language are spontaneous rambling hesitant halting. Attitude and behavior is guarded. Mood appears depressed and anxious fearful hopelessness. Affect is flat sometime has a smile but very rarely. Orientation to person place denies situation. Thought content within normal. Risk factor denies suicidal or homicidal ideation. Perception admits to hallucinations auditory nature. Thought process is very concrete and circumstantial and tangential nature. Concentration and attention is impaired per observation and interview of the patient. Recent remote memory within normal. Intelligence below average. Judgment and insight are fair. Plan: Will remain on current medications and 15 minute observations for safety while on the mental health unit. Encouraged him to go to groups but he says he cannot tolerate them for very long and goes on a tangent about why he is here. We'll follow and observe for any needed psychiatric medications.
[2019-01-13] MEDS: PALIPERIDONE 3 MG TAB.ER.24 PO SCH (21:19)
[2019-01-14] MEDS: NICOTINE 14MG/24HR PATCH TRANSDERM SCH (08:46)
--- NOTE | 2019-01-14 11:18 | P.PN ---
Progress Note - Text Interval history: The patient is found in his room he follows me to an interview room. The patient's states that he is attending to his hygiene by showering every other day. He is directed to change his bed linens. Staff report that he has been attending more groups and selectively participating. He continues to spontaneously make statements that reveal a paranoid/persecutory thought content. He has been attending meals. He continues to lack insight into the need for medication and this hospitalization. Mental status exam: The patient is alert he has a disheveled appearance he is dressed in his own clothing. He has a staring eye contact. He continues to demonstrate a paranoid thought content. He is reporting no hallucinations however once during the session he did start laughing for unexplained reasons. He demonstrates no verbal or physical aggressiveness. He started scratching the back of his neck stating he has a bug bite and he is worried that it's lice or flees. He reports no suicidal or homicidal thoughts. His function continues to be adversely impacted by his psychosis. He remains argumentative. He demonstrates no involuntary repetitive movements. Plan: The patient will continue on his current psychotropic medication. He did tolerate a longer discussion today and was more verbal. Due to his ongoing acute psychosis he requires continued psychiatric hospitalization. Vital signs reviewed.
[2019-01-14] MEDS: PALIPERIDONE 3 MG TAB.ER.24 PO SCH (21:41)
[2019-01-15 06:46] VITALS: BP 102/57; PULSE 49; RESP 12
[2019-01-15] MEDS: NICOTINE 14MG/24HR PATCH TRANSDERM SCH ×2 (09:57→19:16)
--- NOTE | 2019-01-15 10:59 | P.PN ---
Progress Note - Text Interval history: The patient is found in group he follows me to an interview room. He states that the group is not helpful he feels uncomfortable talking in front of others. He again asks me why he is in the hospital and why we are prescribing medication. He asks specific questions about the invega and those were addressed. He continues to demonstrate a lack of insight into his symptoms of psychosis. Mental status exam: The patient is alert he is dressed in his own clothing hygiene is improved. He is wearing his eyeglasses. He continues to have a staring eye contact. He does more readily engages in conversation today. For a brief moment he demonstrates an interview dialogue where he asks questions and answers them himself. He continues to demonstrate paranoid thoughts regarding his mother. He accuses me of trying to suppress him and make parts of him go away with medication. Insight and judgment remain impaired. He demonstrates no verbal or physical aggressiveness. He demonstrates no involuntary repetitive movements. Plan: The patient will continue on the invega we will titrate the dose to 12 mg at bedtime. He remains acutely psychotic with impaired insight into his symptoms. We will monitor him for safety and encourage full participation in the milieu. Vital signs reviewed.
[2019-01-15] MEDS: PALIPERIDONE 6 MG TAB.ER.24 PO SCH (20:13)
[2019-01-15] MEDS: ARTIFICIAL TEARS-HYPROMELLOSE DROPS 15 ML BTL BOTH EYES PRN (23:08)
[2019-01-16] MEDS: NICOTINE 14MG/24HR PATCH TRANSDERM SCH (08:36)
--- NOTE | 2019-01-16 11:28 | P.PN ---
Progress Note - Text Interval history: The patient's found in his room he prefers not to speak in an interview room. He indicates his moods tired. He did eat breakfast this morning but has skipped groups this morning. Staff report that he did attend groups yesterday and in the afternoon seemed to be doing better with his level of participation. The patient continues to ask why he was admitted and when he is going to be discharged. Mental status exam: The patient is alert he is lying in bed eye contact is infrequent. He indicates he feels tired. He minimally participates in the interaction today. He continues to have paranoid persecutory thoughts. Insight and judgment continue to be impaired. He demonstrates no verbal or physical aggressiveness. There is no evidence of involuntary repetitive movements. Affect is blunted. He reports no thoughts of harming himself or others. Plan: The patient will continue on the Invega as written we have just recently titrated the dose. We will monitor him for safety. We will continue to look for signs of improvement in terms of the psychosis. Once he is willing we will involve family in treatment so that we can further assess his current status compared to baseline function. Vital signs reviewed.
[2019-01-16] MEDS: ARTIFICIAL TEARS-HYPROMELLOSE DROPS 15 ML BTL BOTH EYES PRN (12:52)
[2019-01-16] MEDS: LORazepam 1 MG TAB PO PRN (21:18)
[2019-01-16] MEDS: PALIPERIDONE 6 MG TAB.ER.24 PO SCH (21:18)
--- NOTE | 2019-01-17 08:39 | P.PN ---
Progress Note - Text Interval history: The patient is found in his room he follows me to an interview room. He participates in a brief session as he wants to get down to breakfast in the dining room. He indicates his mood is fine. He states he went to most of the groups yesterday I will have to confirm with staff. It's reported he slept 7 hours last night. Appetite stable. He indicates he shower yesterday. He states he avoids conversations with his mother as she is "mean". He states that he plans on returning to her home however and therefore we discussed the need for her participation in discharge planning. He denies having any hallucinations. We discussed his demonstration of an interview dialogue over the last 2 sessions. He states that his simply just himself asking questions and answering them. Mental status exam: The patient is alert he is a disheveled appearance he is dressed in his own clothing hygiene is adequate. Speech is fluent mildly spontaneous. He denies having any suicidal or homicidal ideation. He continues to lack insight into why he was admitted and into his current symptoms of psychosis. He is at times attempting to underreport symptoms of psychosis. He is focused on discharge and is more aware of what he thinks he needs to say to be discharged. He demonstrates no verbal or physical aggressiveness. He maintains a bland affect. He demonstrates no involuntary repetitive movements. Plan: The patient's will continue on his current psychotropic medication. He is demonstrating slow improvement. Symptoms of psychosis persist. He continues to refuse his mother's participation in discharge planning. We will continue to monitor him for safety. He is encouraged to fully participate in the milieu. We will continue to monitor for any attenuation of his psychosis. He is encouraged to continue attending to ADLs such as showering attending meals and washing his clothes. Vital signs reviewed.
[2019-01-17] MEDS: NICOTINE 14MG/24HR PATCH TRANSDERM SCH ×2 (11:51→13:23)
[2019-01-17] MEDS: ARTIFICIAL TEARS-HYPROMELLOSE DROPS 15 ML BTL BOTH EYES PRN (14:03)
[2019-01-17] MEDS: PALIPERIDONE 6 MG TAB.ER.24 PO SCH (22:26)
[2019-01-18] MEDS: NICOTINE 14MG/24HR PATCH TRANSDERM SCH (09:06)
--- NOTE | 2019-01-18 10:00 | P.PN ---
Progress Note - Text Interval history: The patient is found in his room he follows me to an interview room. He indicates his mood is good. He states he has been attending groups. He did eat breakfast this morning. In reviewing social work notes it appears that the patient's has consented to a family meeting and he states that will Take Pl., Monday involving his mother. An attempt was made to discuss what might occur during that meeting but he stated "I don't want to talk about my mother". He has no questions regarding his psychotropic medication. Staff report no behavioral disturbances. Mental status exam: The patient presents in his own clothing he has a disheveled appearance. Eye contact is staring in nature. He is more spontaneously verbal in the sessions he engages more in conversation. Affect shows some improved range. At one point he appropriately used humor. He reports no suicidal or homicidal ideation. He is not spontaneously reporting any symptoms of psychosis. Paranoid and persecutory thoughts are presumed to persist at least in residual form. He demonstrated no response to auditory hallucinations during our interaction. He demonstrates no verbal or physical aggressiveness. He continues to be argumentative at times but that has been improving over the course of the week. He demonstrates no involuntary 100 movements. Plan: The patient will continue on the Invega as written. We will consider initiating the Invega Sustenna. We will await the outcome of the family meeting on Monday. He requires continued psychiatric hospitalization.
[2019-01-18] MEDS ORDERED: PALIPERIDONE IM 234 MG/1.5 ML SYG IM ONE (10:30)
[2019-01-18] MEDS: ARTIFICIAL TEARS-HYPROMELLOSE DROPS 15 ML BTL BOTH EYES PRN (12:41)
[2019-01-18 15:15] VITALS: BMI 24.5
[2019-01-18] MEDS: LORazepam 1 MG TAB PO PRN (15:58)
[2019-01-18] MEDS: PALIPERIDONE 6 MG TAB.ER.24 PO SCH (21:14)
[2019-01-19] MEDS: NICOTINE 14MG/24HR PATCH TRANSDERM SCH (08:05)
[2019-01-19] MEDS: LORazepam 1 MG TAB PO PRN (12:27)
--- NOTE | 2019-01-19 17:59 | P.PN ---
Subjective Progress Note Date: 01/19/19 Principal diagnosis: schizoaffective disorder Found him in his room. Very withdrawn and minimally interactive. Isolating and withdrawing. Reports still hearing some voices but they are slowing down. Behaviorally well controlled. Did sleep okay last night. Has no suicidal Ideaton MSE: Alert, awake, oriented in all spheres. Poor eye contact. Some what guarded approach. Mood anxious with flat affect. Has no suicidal ideation. Has psychoses. Insight and judgment limited A/P : Schizoaffective Disorder, Depressed type Will continue to adjust medications accordingly Objective - Vital Signs Vital signs: Vital Signs Temp 98.2 F 12/23/18 00:37 Pulse 49 L 01/15/19 06:42 Resp 12 01/15/19 06:42 BP 102/57 01/15/19 06:42 Pulse Ox 98 12/22/18 21:38 Intake & Output 01/18/19 01/19/19 01/19/19 18:59 06:59 18:59 Weight 79.6 kg - Labs CBC & Chem 7: 12/23/18 18:42
[2019-01-19] MEDS: PALIPERIDONE 6 MG TAB.ER.24 PO SCH (22:09)
[2019-01-20] MEDS: NICOTINE 14MG/24HR PATCH TRANSDERM SCH (08:54)
[2019-01-20] MEDS: ARTIFICIAL TEARS-HYPROMELLOSE DROPS 15 ML BTL BOTH EYES PRN (09:01)
[2019-01-20] MEDS: LORazepam 1 MG TAB PO PRN (13:53)
--- NOTE | 2019-01-20 14:21 | P.PN ---
Subjective Progress Note Date: 01/20/19 Principal diagnosis: schizoaffective disorder Found him in his room. Very withdrawn and minimally interactive. Isolating and withdrawing. Reports still hearing some voices but they are slowing down. Behaviorally well controlled. Did sleep okay last night. Has no suicidal Ideaton MSE: Alert, awake, oriented in all spheres. Poor eye contact. Some what guarded approach. Mood anxious with flat affect. Has no suicidal ideation. Has psychoses. Insight and judgment limited A/P : Schizoaffective Disorder, Depressed type Will continue to adjust medications accordingly Objective - Vital Signs Vital signs: Vital Signs Temp 98.2 F 12/23/18 00:37 Pulse 49 L 01/15/19 06:42 Resp 12 01/15/19 06:42 BP 102/57 01/15/19 06:42 Pulse Ox 98 12/22/18 21:38 Intake & Output 01/19/19 01/20/19 01/20/19 18:59 06:59 18:59 Weight 80.1 kg - Labs CBC & Chem 7: 12/23/18 18:42
[2019-01-20] MEDS: PALIPERIDONE 6 MG TAB.ER.24 PO SCH ×2 (21:05→21:07)
[2019-01-21] MEDS: NICOTINE 14MG/24HR PATCH TRANSDERM SCH (09:02)
[2019-01-21] MEDS ORDERED: BENZTROPINE MESYLATE 0.5 MG TAB PO SCH (11:00)
[2019-01-21] MEDS ORDERED: BENZTROPINE MESYLATE 0.5 MG TAB PO PRN (11:00)
--- NOTE | 2019-01-21 11:10 | P.PN ---
Progress Note - Text Interval history: The patient is found in group he follows me to an interview room. He indicates his mood is good. With impaired insight he states that the meeting went well. Social work and forming at the meeting did not go as planned. The patient was argumentative he continued to describe paranoid persecutory thoughts. Apparently today he mentioned to staff that he is going to apologize to his mother for his behavior. We do agree that the patient has improved in terms of his participation with sessions. His thoughts are more organized and he is attending to the conversation better. He is aware that he is on a court order he is aware that he needs to continue medication although he does not agree with it. Mental status exam: The patient is alert he has a disheveled appearance he has changes clothing. Eye contact is staring in nature. He maintains a very bland affect. He is mildly argumentative he demonstrates no verbal or physical aggressiveness. He does continue to harbor some residual paranoid thinking. He denies having any suicidal or homicidal ideation intent or plan. He demonstrates no involuntary repetitive movements. He demonstrates no tangential thinking loose associations or flight of ideas. Insight and judgment limited. Plan: The patient will continue on his current medication plan. We will plan on administering the next Invega Sustenna when it is due. We will initiate Cogentin 0.5 mg up to twice daily as needed as he reports having some mild dystonic symptoms. We will continue collaborating with his mother regarding his current symptoms in comparison to his baseline function. He is encouraged to continue participating in group we will monitor him for safety.
[2019-01-21] MEDS: PALIPERIDONE 6 MG TAB.ER.24 PO SCH (22:05)
[2019-01-22] MEDS: NICOTINE 14MG/24HR PATCH TRANSDERM SCH (10:38)
--- NOTE | 2019-01-22 11:29 | P.PN ---
Progress Note - Text Interval history: The patient is found in his room he follows me to an interview room. He indicates his mood is fine. Staff report that he has selectively attended some groups. They find that his thoughts are becoming more organized. He is demonstrating no agitated behavior. Again he asks about discharge. We discussed that he could possibly be discharged by the end of the week. We reviewed our plan for his medication. He will receive the second Invega Sustenna injection this week prior to discharge. I will begin lowering his oral dose this evening. Mental status exam: The patient is alert he is dressed in his own clothing hygiene is adequate. He has a disheveled appearance. Speech is fluent spontaneous nonpressured. He is directable during the session. He denies having any suicidal or homicidal ideation intent or plan. He is reporting no auditory or visual hallucinations. He demonstrates no evidence during this interaction that he is responding to hallucinations. Affect is more expressive. He demonstrates no verbal or physical aggressiveness he demonstrates no involuntary repetitive movements. He is oriented to person place and date. Plan: The patient will continue on the invega I will reduce the oral dose to 6 mg at bedtime. He will be receiving the second dose of Invega Sustenna this week. Social work will communicate with the patient's mother that we are considering discharge this week. He is encouraged to continue his full participation in the milieu we will monitor him for safety
[2019-01-22] MEDS ORDERED: PALIPERIDONE 6 MG TAB.ER.24 PO SCH (21:00)
[2019-01-22] MEDS: MAG HYDROX/AL HYDROX/SIMETH 30 ML CUP PO PRN (22:56)
[2019-01-23] MEDS: NICOTINE 14MG/24HR PATCH TRANSDERM SCH (08:54)
[2019-01-23] MEDS ORDERED: PALIPERIDONE IM 156 MG/ML SYG IM ONE (10:19)
--- NOTE | 2019-01-23 10:22 | P.PN ---
Progress Note - Text Interval history: The patient is found in his room he prefers to speak in his room today. He indicates his mood is good. He states he has no questions or concerns. He is aware that we would like to proceed with the second invega systemic injection today. He reports attending groups yesterday afternoon. Again he inquires into the timeline for his discharge. Mental status exam: The patient is alert he is lying in bed eye contact is intermittent. He indicates his mood is good. Affect is constricted. He reports no suicidal or homicidal ideation intent or plan. He was not argumentative during the interaction and is agreeable to the treatment plan noted above. He demonstrates no verbal or physical aggressiveness he demonstr ates no involuntary repetitive movements. He is reporting no auditory or visual hallucinations or specific delusions. Again he is trying to facilitate a discharge and may be underreporting residual symptoms. Thought process definitely is more organized during the course of this hospitalization. Plan: The patient will receive the second injection of Invega Sustenna 156 mg. We will discontinue the oral dose of invega at this time. He is encouraged to participate in the milieu. Social work will continue communicating with the patient's mother. We anticipate him being discharged end of the week if clinically appropriate. Vital signs reviewed.
[2019-01-23] MEDS: MAG HYDROX/AL HYDROX/SIMETH 30 ML CUP PO PRN (23:30)
--- NOTE | 2019-01-24 09:31 | P.DS ---
Providers Date of admission: 12/22/18 21:38 Expected date of discharge: 01/24/19 Attending physician: Remy Recinos Consults: 12/22/18 21:54 Consult Physician Routine Consulting Provider: Anjelica Foster Consult Reason/Comments: Medical management Do you want consulting provider notified?: Yes Primary care physician: Stated None - Discharge Diagnosis(es) (1) Schizophrenia Current Visit: Yes Status: Acute Priority: High Hospital Course: Brief summary of admission note: This patient is a 28-year-old single male who was admitted to the mental health unit on a pickup order for acute symptoms of psychosis. The patient was petition by his mother stating that the patient refused to see a psychiatrist or take any medication. He was noted to not have insight into his symptoms and not appreciate the need for treatment. Upon presentation to the hospital the patient's described experiencing auditory hallucinations he made statements that the police told him he was coming here to get his penis removed. He felt he had parasites and he demonstrated disorganization of thought. He would often burst into laughter. He would demonstrate an internal dialogue. He was argumentative and reported feelings of being unsafe. For full details please refer to my psychiatric evaluation dated 12/23/2018. Summary of hospital course: The patient was admitted on a petition and clinical certificate. A second clinical certificate was completed. The patient refused psychotropic medication in the form of invega 6 mg at bedtime. For numerous days he refused until it got closer to his court hearing date. He opted not to defer at the deferral conference with his trial attorney. Just prior to his court hearing he began intermittently taking the invega. The court issued a treatment order. Subsequently he complied with the invega. The invega was started 6 mg at bedtime and later titrated to 9 mg and later 12 mg. It took several weeks for the patient to demonstrate benefit from the medication. Initially we saw more organization of his thoughts and he slowly became less argumentative. Once we felt that the medication was providing benefit the Invega Sustenna was initiated at 234 mg and yesterday he was given the second dose 156 mg. The patient has been provided Cogentin 0.5 mg up to twice daily as needed for extrapyramidal side effects. He did participate in a support meeting with his mother but still demonstrated some lack of insight at that time. He has improved since that meeting and we are having him participate in another support meeting involving his mother prior to discharge today. The patient was seen by internal medicine for routine history and physical exam. Social work has met with the patient several times during the course of the hospitalization. Although the patient may still have some residual symptoms of psychosis they are much improved his thought process is much improved he is less argumentative. He is much more able to participate appropriately in a conversation and in the group milieu. Mental status exam: The patient is alert he is dressed in his own clothing he has a disheveled appearance hygiene is improved. He is wearing his eyeglasses. Eye contact is appropriate. Speech is fluent spontaneous nonpressured. He described his mood as being good. Affect is constricted but he demonstrates some brief appropriate smiling. He reports no suicidal ideation intent or plan. He reports no homicidal ideation intent or plan. He is endorsing no auditory or visual hallucinations or any specific delusions. He may be underreporting those symptoms and they may persist in a residual form. Objectively however there has been a significant reduction in his symptoms of psychosis. He demonstrates no verbal or physical aggressiveness. He demonstrates no involuntary repetitive movements. He is oriented to person place and date. Overall insight and judgment have improved from time of admission. Impressions 1. Schizophrenia 2. Rule out alcohol use disorder Plan: The patient will be discharged to the mental health unit today following a successful support meeting involving his mother facilitated by social work. He will continue on invega sustenna with the next dose of 117 mg being due on 02/20/2019. He may continue using Cogentin 0.5 mg up to twice daily. He is on a treatment order and will be followed by [facility]. We discussed the importance of maintaining appointments and complying with medication. We discussed the consequences of not complying with the court order. He is instructed to abstain from any use of alcohol or marijuana or illicit drugs as these can exacerbate symptoms of psychosis and elevate his safety risk. At this time there is no imminent safety risk he is appropriate for transition to outpatient care. He is instructed to return to the hospital with any acute safety concerns. Patient Condition at Discharge: Stable Plan - Discharge Summary New Discharge Prescriptions: New Benztropine Mesylate [Cogentin] 0.5 mg PO BID PRN #60 tab PRN Reason: Extrapyramidal Effects Nicotine 14Mg/24Hr Patch [Habitrol] 1 patch TRANSDERM DAILY #14 patch Paliperidone IM [Invega Sustenna] 117 mg IM QMONTH #1 syr Omeprazole [PriLOSEC] 20 mg PO AC-BRKFST #30 cap Discharge Medication List Benztropine Mesylate [Cogentin] 0.5 mg PO BID PRN #60 tab 01/24/19 [Rx] Nicotine 14Mg/24Hr Patch [Habitrol] 1 patch TRANSDERM DAILY #14 patch 01/24/19 [Rx] Omeprazole [PriLOSEC] 20 mg PO AC-BRKFST #30 cap 01/24/19 [Rx] Paliperidone IM [Invega Sustenna] 117 mg IM QMONTH #1 syr 01/24/19 [Rx] Follow up Appointment(s)/Referral(s): None,Stated [Primary Care Provider] - 1-2 days Activity/Diet/Wound Care/Special Instructions: Activity and diet as tolerated. Avoid the use of street drugs and alcohol. Take all medications as prescribe. When your are in need of refills on your medications please contact your medical provider and/or outpatient psychiatrist to obtain refills. Please go to scheduled outpatient appointment for aftercare treatment. If symptoms return or become worse, call the crisis line at [phone] and/or go to the nearest emergency room for evaluation.
[2019-01-24] MEDS: NICOTINE 14MG/24HR PATCH TRANSDERM SCH (09:39)
== END 2019-01-24 11:56 | disposition home or self-care (01) | DRG 885 ==
LOC: EC 19:43 → 3MHU 21:38
PROVIDERS: ADMIT Psychiatry & Neurology Psychiatry; ATTEND Psychiatry & Neurology Psychiatry
DX: F25.1 Schizoaffective disorder, depressive type (principal); F17.210 Nicotine dependence, cigarettes, uncomplicated; F31.9 Bipolar disorder, unspecified; F41.9 Anxiety disorder, unspecified; T43.96XA Underdosing of unspecified psychotropic drug, initial encounter; Z91.128 Patient's intentional underdosing of medication regimen for other reason; Z56.0 Unemployment, unspecified; F10.10 Alcohol abuse, uncomplicated; B07.0 Plantar wart; R00.0 Tachycardia, unspecified; Z91.19 Patient's noncompliance with other medical treatment and regimen; M79.672 Pain in left foot
CPT/HCPCS: 80306; 82075; 85025; 99285

== ENCOUNTER 2019-03-29 19:36 | Emergency (ER) | payer OTHER ==
[2019-03-29 19:52] VITALS: RESP 18
[2019-03-29 20:36] LABS: Amphetamine Screen,Urine Not Detected (NotDetected); Barbiturate Screen,Urine Not Detected (NotDetected); Benzodiazepines Screen,Urine Not Detected (NotDetected); Cocaine Screen,Urine Not Detected (NotDetected); Methadone Screen, Urine Not Detected (NotDetected); Opiate Screen,Urine Not Detected (NotDetected); Oxycodone Screen, Urine Not Detected (NotDetected); Phencyclidine Screen,Urine Not Detected (NotDetected); Tricyclic Antidepressant,Urine Not Detected (NotDetected); Urn Cannabinoid Scrn Not Detected (NotDetected)
--- NOTE | 2019-03-29 21:17 | ED ---
General Adult HPI - General Chief complaint: Psychiatric Symptoms Stated complaint: Mental Health Time Seen by Provider: 03/29/19 19:57 Source: patient, RN notes reviewed, old records reviewed Mode of arrival: ambulatory Limitations: no limitations - History of Present Illness Initial comments: 28-year-old male patient presents to ED request by [facility]. The Due to missed appointment. Patient denies any other complaints at this time. Denies any suicidal homicidal ideations, denies anything today to hurt himself or hurt any other people, denies all other complaints. Systemic: Pt denies fatigue, fever/chills, rash. Pt denies weakness, night sweats, weight loss. Neuro: Pt denies headache, visual disturbances, syncope or pre-syncope. HEENT: Pt denies ocular discharge or irritation, otalgia, rhinorrhea, pharyngitis or notable lymphadenopathy. Cardiopulmonary: Pt denies chest pain, SOB, heart palpitations, dyspnea on exertion. Abdominal/GI: Pt denies abdominal pain, n/v/d. : Pt denies dysuria, burning w/ urination, frequency/urgency. Denies new onset urinary or bowel incontinence. MSK: Pt denies myalgia, loss of strength or function in extremities. Neuro: Pt denies new onset weakness, paresthesias. - Related Data Home Medications Medication Instructions Recorded Confirmed Benztropine Mesylate [Cogentin] 0.5 mg PO BID 03/29/19 03/29/19 Paliperidone IM [Invega Sustenna] 156 mg IM Q28D 03/29/19 03/29/19 Previous Rx's Medication Instructions Recorded Nicotine 14Mg/24Hr Patch [Habitrol] 1 patch TRANSDERM DAILY #14 patch 01/24/19 Omeprazole [PriLOSEC] 20 mg PO AC-BRKFST #30 cap 01/24/19 Allergies Allergy/AdvReac Type Severity Reaction Status Date / Time risperidone [From Risperdal] Allergy Rash/Hives Verified 03/29/19 20:56 Review of Systems ROS Statement: Those systems with pertinent positive or pertinent negative responses have been documented in the HPI. ROS Other: All systems not noted in ROS Statement are negative. Past Medical History Past Medical History: No Reported History History of Any Multi-Drug Resistant Organisms: None Reported Past Surgical History: No Surgical Hx Reported Past Psychological History: Anxiety, Bipolar, Depression Smoking Status: Former smoker Past Alcohol Use History: None Reported Past Drug Use History: None Reported General Exam - General Exam Comments Initial Comments: Constitutional: NAD, AOX3, Pt has pleasant affect. HEENT: NC/AT, trachea midline, neck supple, no lymphadenopathy. Posterior pharynx non erythematous, without exudates. External ears appear normal, without discharge. Mucous membranes moist. Eyes PERRLA, EOM intact. There is no scleral icterus. No pallor noted. Cardiopulmonary: RRR, no murmurs, rubs or gallops, no JVD noted. Lungs CTAB in anterior and posterior rashid. No peripheral edema. Abdominal exam: Abdomen soft and non-distended. Abdomen non-tender to palpation in all 4 quadrants. Bowel sounds active in LLQ. No hepatosplenomegaly. No ecchymosis Neuro: CN II-XII grossly intact. No nuchal rigidity. No raccon eyes, no rodriguez sign, no hemotympanum. No cervical spinal tenderness. MSK: No posterior calf tenderness bilaterally, homans sign negative bilaterally. Posterior tibialis and radial pulse +2 bilaterally. Sensation intact in upper and lower extremities. Full active ROM in upper and lower extremities, 5/5 stregnth. Limitations: no limitations Course Vital Signs 03/29/19 19:47 Temperature 99.2 F Pulse Rate 105 H Respiratory 18 Rate Blood Pressure 130/73 O2 Sat by Pulse 98 Oximetry Medical Decision Making - Medical Decision Making 28-year-old male patient brought in by police due to missed appointment. Per EPS contacting [facility] this was a miscommunication as appointment had been rescheduled. EPS has cleared patient for discharge. On repeat evaluation patient seems to deny all review of systems. Case discussed with Dr. Dueñas. - Lab Data Lab Results 03/29/19 Range/Units 20:04 Urine Opiates Screen Not Detected (NotDetected) Ur Oxycodone Screen Not Detected (NotDetected) Urine Methadone Screen Not Detected (NotDetected) Ur Propoxyphene Screen Not Detected (NotDetected) Ur Barbiturates Screen Not Detected (NotDetected) U Tricyclic Antidepress Not Detected (NotDetected) Ur Phencyclidine Scrn Not Detected (NotDetected) Ur Amphetamines Screen Not Detected (NotDetected) U Methamphetamines Scrn Not Detected (NotDetected) U Benzodiazepines Scrn Not Detected (NotDetected) Urine Cocaine Screen Not Detected (NotDetected) U Marijuana (THC) Screen Not Detected (NotDetected) Disposition Clinical Impression: Psychiatric disorder Disposition: HOME SELF-CARE Condition: Stable Instructions (If sedation given, give patient instructions): Mood Disorders (ED) Additional Instructions: Patient to adhere to previously discussed treatment plan and will take medication(s) as directed. Patient to follow up with PCP in 1-2 days. Patient to return to ED if symptoms do not improve. Follow-up with primary care provider tomorrow. Return to ER if condition worsens. Is patient prescribed a controlled substance at d/c from ED?: No Referrals: None,Stated [Primary Care Provider] - 1-2 days
[2019-03-29 21:39] VITALS: BP 112/70; PULSE 100; TEMP 98.7
== END 2019-03-29 21:39 | disposition home or self-care (01) ==
LOC: EC 19:36
DX: F99 Mental disorder, not otherwise specified (principal); F31.9 Bipolar disorder, unspecified; F41.9 Anxiety disorder, unspecified; Z87.891 Personal history of nicotine dependence; Z79.899 Other long term (current) drug therapy; Z88.8 Allergy status to other drugs, medicaments and biological substances
CPT/HCPCS: 80306; 82075; 99284

== ENCOUNTER 2019-09-22 23:54 | Inpatient (IN) | payer MEDICAID, OTHER ==
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
[2019-09-23 00:53] LABS: Amphetamine Screen,Urine Not Detected (NotDetected); Barbiturate Screen,Urine Not Detected (NotDetected); Benzodiazepines Screen,Urine Not Detected (NotDetected); Cocaine Screen,Urine Not Detected (NotDetected); Methadone Screen, Urine Not Detected (NotDetected); Opiate Screen,Urine Not Detected (NotDetected); Oxycodone Screen, Urine Not Detected (NotDetected); Phencyclidine Screen,Urine Not Detected (NotDetected); Tricyclic Antidepressant,Urine Not Detected (NotDetected); Urn Cannabinoid Scrn Not Detected (NotDetected)
[2019-09-23] MEDS ORDERED: ZIPRASIDONE 20 MG VIAL IM PRN (04:57)
[2019-09-23] MEDS ORDERED: ACETAMINOPHEN TAB 325 MG TAB PO PRN (04:57)
[2019-09-23] MEDS ORDERED: MAGNESIUM HYDROXIDE 2,400 MG/10 ML CUP PO PRN (04:57)
[2019-09-23] MEDS ORDERED: MAG HYDROX/AL HYDROX/SIMETH 30 ML CUP PO PRN (04:57)
[2019-09-23] MEDS ORDERED: LORazepam 1 MG TAB PO PRN (04:57)
[2019-09-23] MEDS ORDERED: LORazepam 2 MG/ML INJ IM PRN (06:37)
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
[2019-09-23] MEDS: ARIPiprazole 15 MG TAB PO SCH (11:29)
--- NOTE | 2019-09-23 15:49 | P.CONS ---
History of Present Illness - Reason for Consult Consult date: 09/23/19 - History of Present Illness Patient is a 28-year-old male with a PMH of bipolar disorder, and schizophrenia who presented to the ED for psychosis. The patient was reportedly brought in by his mother who had noted that the patient was acting okay since Thanksgiving though had become psychotic and was acting appropriately the past few days. The mother also reported that she believes the patient was not taking his medic ations. The patient was admitted to the mental health unit, where the patient was seen and examined earlier today. He reported feeling better and denied any active complaints. The patient denied chest pain, shortness of fever, chills, nausea, vomiting, dizziness, or headaches. Review of Systems Pertinent positives and negatives as discussed in HPI, a complete review of systems was performed and all other systems are negative. Past Medical History Past Medical History: No Reported History History of Any Multi-Drug Resistant Organisms: None Reported Past Surgical History: No Surgical Hx Reported Past Psychological History: Anxiety, Bipolar, Depression, Schizophrenia Smoking Status: Current every day smoker Past Alcohol Use History: Daily Past Drug Use History: None Reported Medications and Allergies Home Medications Medication Instructions Recorded Confirmed Type Nicotine 14Mg/24Hr Patch [Habitrol] 1 patch TRANSDERM DAILY #14 patch 01/24/19 03/29/19 Rx Omeprazole [PriLOSEC] 20 mg PO AC-BRKFST #30 cap 01/24/19 03/29/19 Rx Benztropine Mesylate [Cogentin] 0.5 mg PO BID 03/29/19 03/29/19 History Paliperidone IM [Invega Sustenna] 156 mg IM Q28D 03/29/19 03/29/19 History Allergies Allergy/AdvReac Type Severity Reaction Status Date / Time risperidone [From Risperdal] Allergy Rash/Hives Verified 09/23/19 00:04 Physical Exam Vitals: Vital Signs Temp Pulse Pulse Resp BP BP Pulse Ox 09/23/19 06:19 97.8 F 90 18 114/71 97 09/23/19 00:01 98.7 F 109 H 20 126/84 95 Intake and Output 09/23/19 09/23/19 09/23/19 06:59 14:59 22:59 Other: Weight 87.543 kg General: non toxic, no distress, appears at stated age, overweight Derm: no unusual rashes/lesions no unusual ecchymoses, warm, dry Head: atraumatic, normocephalic, symmetric Eyes: EOMI, no lid lag, anicteric sclera, pupils equal round reactive to light ENT: Nose and ears atraumatic, no thrush, no pharyngeal erythema Neck: No thyromegaly, no cervical lymphadenopathy, trachea midline, supple Mouth: no lip lesion, mucus membranes moist Cardiovascular: S1S2 reg, no murmur, positive posterior tibial pulse bilateral, no edema, capillary refill less than 2 seconds Lungs: CTA bilateral, no rhonchi, no rales , no accessory muscle use Abdominal: soft, nontender to palpation, no guarding, no appreciable organomegaly, normal bowel sounds Ext: no gross muscle atrophy, muscle strength 5 out of 5 in all 4 extremities grossly, no contractures, Neuro: CN II-XI grossly intact, light touch intact all 4 extremities, finger to nose within normal limits, Psych: Alert, oriented, flat affect Assessment and Plan Plan: Overweight -Advised on importance of lifestyle modifications Psychosis -As per psychiatry Thank you for allowing us to participate in the care of this patient. We will follow peripherally. Do not hesitate to contact us with questions. Someone can be reached from the [facility] hospitalist group at all hours of the day at [phone].
[2019-09-24] MEDS: ARIPiprazole 15 MG TAB PO SCH ×2 (08:54→09:55)
--- NOTE | 2019-09-24 15:47 | P.PN ---
Subjective Progress Note Date: 09/24/19 Principal diagnosis: I reviewed the medical record and interviewed the patient. He is a 28-year-old single male who has history of a schizophrenia. He was admitted to the psychiatric unit involuntarily with decompensation from noncompliance with treatment. He was reluctant to meet with me in lieu of Dr. Recinos who is on vacation. He was extremely guarded and suspicious and frequently questioned the motives behind my inquiries. He often stared blankly and laughed inappropriately. He requested to be discharge and appeared to believe that he was admitted to the hospital voluntarily. He is not been compliant with his prescribed psychotropic medication (Abilify 15 mg daily). Objective - Vital Signs Vital signs: Vital Signs Temp 96.8 F L 09/24/19 06:35 Pulse 88 09/24/19 06:35 Resp 17 09/24/19 06:35 BP 112/57 09/24/19 06:35 Pulse Ox 99 09/24/19 06:35 - Exam He presented as a casually groomed young male with prominent concre teness to. He made eye contact but did not appear to attend to the interview room. He had a blunted facial expression. He showed psychomotor retardation and a slow but steady gait. His speech was not spontaneous and showed poverty of speech and poverty of content. His affect was blunted and at times inappropriate. He stared blankly at me when I inquired about suicidality. He did not express clear ideas reference or paranoid ideation but appeared markedly guarded and suspicious. His thinking was not coherent or logical but did not express delusional symptoms or clang associations. He did not answer questions about auditory, visual or olfactory hallucinations. However he appeared at times to be responding to internal stimuli. Assessment and Plan Assessment: He is acutely psychotic with prominent paranoia, mood lability, thought disturbances (auditory hallucinations. He has no insight or understanding of his illness or need for treatment. He is refusing oral psychotropic medications. Demonstrated episodes of behavioral dyscontrol requiring intramuscular treatment. Plan: Continue inpatient hospitalization. Proceed with involuntary hospitalization. Safety precautions. Encourage compliance with prescribed medications. Encourage participation in therapeutic groups and activities. Evaluate clinical status response to treatment daily basis. Continue Ativan and/or Geodon by mouth/IM for agitation, anxiety or aggression.
[2019-09-25] MEDS: ARIPiprazole 15 MG TAB PO SCH (09:01)
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
[2019-09-26] MEDS: ARIPiprazole 15 MG TAB PO SCH (09:06)
[2019-09-27] MEDS: ARIPiprazole 15 MG TAB PO SCH (08:01)
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
--- NOTE | 2019-09-27 14:14 | P.PN ---
Subjective Progress Note Date: 09/27/19 Principal diagnosis: I reviewed the medical record and interviewed the patient. He is a 28-year-old single male who has history of a schizophrenia. He was admitted to the psychiatric unit involuntarily with decompensation from noncompliance with treatment. He was much more guarded and suspicious than on prior encounters. He met with an assistant attorney general yesterday and agreed to defer the probate hearing. He took his first dose of Abilify this morning. I asked him why he agreed to defer and start taking Abilify. He replied that it was "out of my business." He started me blankly I recommended to transition from oral Abilify to the long acting injectable. Objective - Vital Signs Vital signs: Vital Signs Temp 98.1 F 09/26/19 06:28 Pulse 75 09/26/19 06:28 Resp 15 09/26/19 06:28 BP 108/64 09/26/19 06:28 Pulse Ox 99 09/24/19 06:35 - Exam He presented as a slightly disheveled appearing young male with marked gynecomastia. He sat unmoving during interview. There were long pauses in his answers to questions. He was markedly paranoid and suspicious. He denied auditory hallucinations and did not appear to be responding to internal stimuli during this interview. Assessment and Plan Assessment: He remains paranoid and acutely psychotic. He has no insight or understanding of his mental illness or need for treatment but has agreed to resume the antipsychotic medication. Plan: Continue inpatient hospitalization. Safety precautions. Continue Abilify 15 m g at bedtime and transition to Abilify Mainten. Encourage participation in therapeutic groups and activities. Evaluate clinical status response to treatment daily basis. Continue Ativan and/or Geodon by mouth/IM for agitation, anxiety or aggression.
[2019-09-28] MEDS: ARIPiprazole 15 MG TAB PO SCH (08:24)
--- NOTE | 2019-09-28 13:23 | P.PN ---
Progress Note - Text Progress Note Date: 09/28/19 Interval history: Patient was seen wandering the hallways after lunch and was agreeable to speak to specification writer in the office. Patient was initially hesitant and suspicious of specification writer and asked to speak to either Dr. Recinos or Dr. Yu. As explained to patient that specification writer was covering over the weekend. Patient was suspicious of specification writer and paranoid and asked specification writer with how he has access to his medical records. Patient was concrete and blunt in his affect. He states that he has been going to groups however does not elaborate. He claims to trust everybody on the unit. He states that he slept well last night and has been taking his medications however claims that "they're not helping me". He denies any depression at this time. At this time patient denies any suicidal or homicidal ideations intent or plan. Denies any Auditory or visual hallucinations. Patient denies any side effects from the medications and has been compliant with meds. Mental status exam: General Appearance: Patient appears to be stated age is alert, suspicious/paranoid. Fair hygiene and grooming, wearing glasses with intense eye contact. Behavior: No agitated behavior. Patient is calm and paranoid Speech: Patient's speech is fluent and nonpressured. Mood/Affect: Mood is improving mildly, affect is congruent and blunted affect Suicidality/Homicidality: Patient denies having any suicidal or homicidal ideation intent or plan. Perceptions: Patient denies any auditory or visual hallucinations. Though content/process: [place], poverty of content and speech, significant paranoia. Memory and concentration: AOX3, grossly intact for the purposes of this session Judgment and insight: Poor Assessment/Plan: Continue with current diagnosis. Patient continues to meet criteria for inpatient psychiatric admission for symptom stabilization and safety.Patient will be maintained on current psychotropic medication regimen. We'll consider increasing medication tomorrow. Patient continues to take his medication and will monitor for compliance and for any psychotropic medication side effects. Will continue to monitor ongoing response to treatment. Vital signs reviewed.
[2019-09-29] MEDS: ARIPiprazole 15 MG TAB PO SCH (08:55)
--- NOTE | 2019-09-29 11:06 | P.PN ---
Progress Note - Text Progress Note Date: 09/29/19 Interval history: Patient was seen standing near the nurse's station and was agreeable to speak to mortgage or loan underwriter in the office. Patient continues to be hesitant and paranoid of mortgage or loan underwriter and stated "who is in the room with me" one patient first sat down with mortgage or loan underwriter. Public Affairs Specialist had to reintroduce himself from yesterday. Patient continues to have a blank stare and is bizarre. He states that he has been going to groups however does not elaborate. He states that he's been getting along with other people on the unit at this time. He states that he slept well last night but claimed that "they were touching me" and does not elaborate or explain who it was that was touching him. He denies any depression at this time. At this time patient denies any suicidal or homicidal ideations intent or plan. Denies any Auditory or visual hallucinations. Patient denies any side effects from the medications and has been compliant with meds. Mental status exam: General Appearance: Patient appears to be stated age is alert, suspicious/paranoid. Fair hygiene and grooming, wearing glasses with intense eye contact. Behavior: No agitated behavior. Patient is calm and paranoid/hesitant. Speech: Patient's speech is fluent and nonpressured. Mood/Affect: Mood is improving mildly, affect is congruent and blunted affect Suicidality/Homicidality: Patient denies having any suicidal or homicidal ideation intent or plan. Perceptions: Patient denies any auditory or visual hallucinations. Though content/process: [place], poverty of content and speech, significant paranoia. Memory and concentration: AOX3, grossly intact for the purposes of this session Judgment and insight: Poor Assessment/Plan: Continue with current diagnosis. Patient continues to meet criteria for inpatient psychiatric admission for symptom stabilization and safety.Will increase Abilify to 20 mg daily for psychosis. Patient claims that he is willing to take Abilify Maintenna long-acting injection prior to discharge. Patient continues to take his medication and will monitor for compliance and for any psychotropic medication side effects. Will continue to monitor ongoing response to treatment. Vital signs reviewed.
--- NOTE | 2019-09-30 09:18 | P.PN ---
Progress Note - Text Interval history: The patient is found in the hallway he follows me to an interview room. He indicates his mood is fine. I did review records in terms of progress notes during my absence. The patient continues to be prescribed Abilify the dosage has been changed to 20 mg recently. The patient continues to deny having symptoms although he demonstrates them actively in session. He states that he has not spoken with his mother whom he lives with and has told her to stay away from him. It is still his intention to return to her home upon discharge. He argues that the invega just made him feel slow and dull however he states that it did help with the hallucinations to some extent. We discussed that we want the Abilify to provide the same relief without the side effect. He indicates his appetite is reduced sleep he states is stable. He indicates he is attending half of the groups. Mental status exam: The patient's an overweight male he is alert he is dressed in his own clothing he somewhat disheveled hygiene is fair. Eye contact is staring in nature. He continues to demonstrate a bizarre affect. He demo nstrates random smiling. He continues to respond to what appears to be an auditory hallucination. He provides an answer to the hallucination as it is asking him a question. He asks several questions related to the medication but he does not appear to be able to incorporate the information provided. He spontaneously states that the police will continue to pull him over every day he leaves his house. He states neighbors are calling the police and making false reports against him. He makes other odd non-objective statements. He demonstrates no verbal or physical aggressiveness. His thought process at times is not well organized. He will frequently changed topics outside of the context of the current conversation. Insight and judgment are impaired. He demonstrates no repetitive involuntary movements. Plan: The patient remains psychotic. His Abilify has been titrated to 20 mg we will likely titrate this further. He informs me that he deferred at his deferral conference. Our plan will be to using Abilify maintena. We will monitor him for safety he is encouraged to participate in the milieu. I will confer with staff regarding his progress over the last week during treatment team meeting. Vital signs reviewed. He requires continued psychiatric hospitalization.
[2019-09-30 13:31] VITALS: BMI 29.4
--- NOTE | 2019-10-01 09:46 | P.PN ---
Progress Note - Text Interval history: The patient is found in the [facility] he follows me to an interview room. He indicates his mood is fine. He reports that he has been attending groups. He slept 7 hours last night appetite stable. He stated that he did contact his mother very briefly via phone. He informed me that he is not able to return unless he receives an injection of the medication. We discussed that we are waiting to see if the oral Abilify is demonstrating enough efficacy to proceed with the injection. He continues to assert that there was no reason for this admission and he has no symptoms. There have been no reports of any behavioral disturbance caused by the patient. Mental status exam: The patient is an overweight male dressed in his own clothing he has a disheveled appearance. He is wearing eyeglasses. He has a staring eye contact. His affect is fairly blunted today with the exception of one instance of bizarre smiling and laughter during our conversation. He continues to deny experiencing auditory hallucinations but invariably during each session he demonstrates evidence of responding to presumed auditory hallucinations. He indicates that he doesn't feel safe but does not provide specifics. He demonstrates no verbal or physical aggressiveness. He does become mildly irritable when discussing the reasons for his continued stay in the hospital. Speech was fluent spontaneous at times but mainly he responds to questions. He is demonstrating no involuntary repetitive movements. Insight and judgment impaired. He was able to identify the correct month date and year but not the current day of the week. Plan: The patient will continue on the Abilify 20 mg this was just titrated to 20 mg yesterday. We will consider titrating further if needed as soon as tomorrow. I will continue to confer with the treatment team regarding his improvement during this hospitalization. We will monitor him for safety. He is encouraged to continue participating in the milieu. Vital signs reviewed. He requires continued psychiatric hospitalization until we further stabilize his psychosis and transition him to a long-acting injectable antipsychotic.
[2019-10-01] MEDS: NICOTINE 14MG/24HR PATCH TRANSDERM SCH (11:25)
[2019-10-02] MEDS: NICOTINE 14MG/24HR PATCH TRANSDERM SCH (08:54)
[2019-10-02] MEDS ORDERED: ARIPiprazole IM 400 MG VIAL (NO COST) IM ONE (10:36)
--- NOTE | 2019-10-02 10:41 | P.PN ---
Progress Note - Text Interval history: The patient is found in the [facility] he follows me to an interview room. He indicates his mood is fine. He continues to deny having any symptoms. He continues to deny needing hospitalization on the psychiatric unit. He has had no further conversations with his mother. Staff report that the patient has been attending groups and his behavior has been more appropriate. He denies having any auditory or visual hallucinations. Indicates he feels safe today. We discussed the plan of transitioning him to Abilify maintena. He continues to be guarded when we discuss involving his mother and his care or at least confirming he is able to return to her house upon discharge. Mental status exam: The patient is alert he is dressed in his own clothing he is an overweight male. He has a disheveled appearance hygiene is fair. Eye contact is staring in nature. He reports his mood is fine. He has little spontaneous speech but provides brief answers to questions. He denies having any suicidal or homicidal ideation intent or plan. He denies having any auditory or visual hallucinations. During our session today he did not seem to be attending to auditory hallucinations. There was no evidence of bizarre expressions or laughter during the session. Insight and judgment remains limited. He demonstrates no verbal or physical aggressiveness he demonstrates no involuntary repetitive movements. Plan: The patient will continue on the Abilify is written we will initiate the Abilify maintena 400 mg IM today. We will monitor him for safety and encourage full participation in the milieu. Vital signs reviewed. He is encouraged to allow us to speak with his mother to confirm he is able to return home. He is encouraged to have his mother visit so she is able to inform us of how he is approximating his baseline function.
[2019-10-02] MEDS ORDERED: ARIPiprazole IM SYRINGE 400 MG (NO CHARGE) IM ONE (10:45)
[2019-10-03] MEDS: NICOTINE 14MG/24HR PATCH TRANSDERM SCH (08:32)
--- NOTE | 2019-10-03 10:27 | P.PN ---
Progress Note - Text Interval history: The patient is found in group he follows me to an interview room. He reports again that his mood is fine. He remains focused on being discharged. He continues to be bothered by the fact that we would like to speak with his mother to get collateral information and confirm that he is appropriate to return to her home. He does say however he will allow a family meeting and the discussion can occur then. He indicates he continues to sleep well appetite stable. He is attending groups. He states that last time he isolated and didn't talk any state here for 2 months so he decided this time he would talk and attend groups. Mental status exam: The patient is alert hygiene grooming fair eye contact is staring in nature. He remains guarded. He maintains a blunted affect. He reports no suicidal or homicidal ideation intent or plan. He demonstrates no physical or aggressive behavior. He does become frustrated when again discussing the need to involve his mother in his care as he plans to reside with her again. He demonstrates no abnormal involuntary movements. He demonstrates no tangential thinking loose associations or flight of ideas. He may still be continuing to experience symptoms of psychosis but he is not reporting those and he has not demonstrating it as he was several days ago. He demonstrates no odd outbursts of laughter and does not appear to be responding during our sessions to any auditory hallucinations. He chronically appears to have some paranoid thoughts. Insight and judgment slowly improving. Plan: The patient will continue on his current medications. We will discuss his progress further in treatment team. We will consider setting up a family meeting to have his mother assess his current status and how he is approximating to his known baseline. Overall it seems that his symptoms of psychosis are slowly improving. Vital signs reviewed. He is encouraged to continue participating in the milieu.
[2019-10-04] MEDS: NICOTINE 14MG/24HR PATCH TRANSDERM SCH (08:46)
--- NOTE | 2019-10-04 09:34 | P.PN ---
Progress Note - Text Interval history: The patient is found in the hallway he follows me to an interview room. He indicates his mood is good. He reports he continues to attend groups. Appetite stable. He has no questions regarding his psychotropic medication. He continues to refuse to sign a release of information so that we can facilitate a family meeting involving his mother whom he plans to reside with. We discussed this in some detail. He makes statements that if he signs that he will "sign my life away" again we reviewed the purpose of the release of information. Mental status exam: The patient is an overweight male he is dressed in his own clothing he is a disheveled appearance hygiene is fair. He is wearing his eyeglasses. He is a staring eye contact affect is blunted to flat. He reports his mood is good. He is reporting no suicidal or homicidal ideation intent or plan. He is reporting no feelings of anger or irritability. He reports no auditory or visual hallucinations or any specific delusions. He does continue to have paranoid thoughts and suspiciousness which is likely part of his baseline function. For the third day he demonstrates no bizarre behavior during the session. Previously he was demonstrating outbursts of laughter and was clearly responding to auditory hallucinations. He does not appear to be internally preoccupied at this time. He demonstrates no verbal or physical aggressiveness. He is easily directed is cooperative. He demonstrates no repetitive involuntary movements. Insight and judgment slowly improving. Plan: The patient will continue his current psychotropic medications. We had a lengthy discussion about the need for involving his mother in a support meeting prior to discharge. He will give this further consideration. Social work will be asked to approach the patient again to try to arrange a family meeting. Vital signs reviewed. His symptoms of psychosis continue to slowly improve. Once we get the support meeting completed he may be appropriate for discharge sometime next week.
[2019-10-05] MEDS: NICOTINE 14MG/24HR PATCH TRANSDERM SCH (09:36)
--- NOTE | 2019-10-05 21:24 | P.PN ---
Progress Note - Text Progress Note Date: 10/05/19 Interval history: Patient is seen in cross coverage today. He describes it being stressful being in the hospital. He does feel like he is overall feeling better. Makes reference to some of the things he was experiencing prior to admission to the hospital. Mental status exam: He is alert and cooperative overall with the interview process. Regarding his mood he describes a stressful being in the hospital. He reports that he is not a danger to himself or others. He does not seem to verba lize any active hallucinations. He does not show any significant agitation. He does make reference to the doctors asking the same questions. Plan: Patient will be maintained on current psychotropic medication regimen. Continue to monitor for any medication side effects and monitor his ongoing response to treatment.
[2019-10-06] MEDS: NICOTINE 14MG/24HR PATCH TRANSDERM SCH (09:40)
--- NOTE | 2019-10-06 16:23 | P.PN ---
Progress Note - Text Progress Note Date: 10/06/19 Interval history: Patient seen in cross [facility] today. He seems to relay that his mood is doing pretty good today. He does not seem to verbalize any adverse psychotropic medication side effects. He says he woke up feeling pretty restless today. He proceeds to relay that he pleasured himself and makes reference to they 'made me do it.' He does not explain this any further. Mental status exam: He is alert and cooperative with the interview. His speech is fluent, not rapid or pressured. His mood he described as pretty good. He does not make any statements about harm to self or others. He makes reference to having pleasured himself earlier today and relays that they 'made me he does not show any agitation. do it.' He does not become any more specific about this and does not verbalize any current hallucinations. Plan: We'll maintain current psychotropic medication regimen. Continue to monitor for any side effects to monitor his ongoing response to treatment.
[2019-10-07] MEDS: NICOTINE 14MG/24HR PATCH TRANSDERM SCH (09:12)
--- NOTE | 2019-10-07 09:40 | P.PN ---
Progress Note - Text Interval history: The patient is found in group he follows me to an interview room. He indicates his mood is "fine". He reports that he is scheduled to have a support meeting tomorrow involving his mother. He states he wants to know how things are going to be when he goes home. He has no questions regarding his psychotropic medications. He states that he is eating and sleeping appropriately. Staff reported he slept 7 hours. He denies having any symptoms. Mental status exam: The patient is dressed in his own clothing hygiene grooming fair he has a disheveled appearance overall. He is wearing his eyeglasses. He maintains a blunted affect. He answers questions briefly with little spontaneous speech. He taps his hand on the arm of the chair throughout our interaction. He reports no suicidal or homicidal ideation intent or plan. He endorses no auditory or visual hallucinations or any specific delusions. It is possible that he is underreporting residual symptoms of psychosis. Insight and judgment slowly improving. He is oriented to person place and date. He demonstrates no verbal or physical aggressiveness. Plan: The patient will continue on his current psychotropic medications. We will monitor him for safety. We will await the outcome of the support meeting involving his mother tomorrow. We'll consider discharging him if that goes well. Vital signs reviewed. He is encouraged to continue participating in the milieu.
[2019-10-08] MEDS: NICOTINE 14MG/24HR PATCH TRANSDERM SCH (09:19)
--- NOTE | 2019-10-08 09:26 | P.PN ---
Progress Note - Text Interval history: The patient is found in the hallway he follows me to an interview room. He reports his mood is fine. He indicates he sleeping staff recorded he slept 6 hours. Appetite is stable. He remains compliant with medication. Social work has spoken with the patient's mother. The patient's mother expresses concerns that he is still paranoid and may not be ready for discharge. We will proceed with the support meeting tomorrow anyway so that we can clarify his status currently compared to his known baseline I will confer with staff during treatment team meeting regarding his behavior over the last 24 hours. Mental status exam: The patient is an alert male he stressors own clothing he has a disheveled appearance hygiene is adequate there is no foul odor. He denies having any symptoms including auditory or visual hallucinations. He denies having any paranoid or persecutory thoughts however he does demonstrate concerns about the release of information and what his mother might say during tomorrow's meeting. He continues to assert that he did not require an admission to the hospital. He continues to have poor insight into his psychosis. Judgment has improved in that he is cooperative with medications here on the mental health unit. He demonstrates no verbal or physical aggressiveness he is demonstrating no involuntary repetitive movements. He maintains a blunted affect. He initiates no conversation today. He provides brief answers to questions asked. Plan: The patient will continue on his current psychotropic medications. We will monitor him for safety. We are allowing the Abiliy maintena time to demonstrate efficacy. He will participate in a support meeting involving his mo ther tomorrow. His mother will help us determine his current status compared to his baseline function. His mother expressed concern about housing potentially. Vital signs reviewed. He requires continued psychiatric hospitalization. He is encouraged to continue participating fully in the milieu.
[2019-10-09] MEDS: NICOTINE 14MG/24HR PATCH TRANSDERM SCH (09:37)
--- NOTE | 2019-10-09 13:09 | P.PN ---
Subjective Progress Note Date: 10/09/19 The patient was seen in the chart was reviewed. The case was discussed with staff and team meeting. The patient reports doing okay and reports fair sleep and appetite. He remained focused on getting discharged from the hospital. The patient reports that he has a family meeting scheduled with his mother today. The patient has been cooperative and compliant with the treatment at this time. The patient denies any auditory or visual hallucinations. He appears to be preoccupied and very guarded during the session. The patient denies any active suicidal or homicidal ideations at this time. The patient denies any side effects on the medications at this time. Objective - Vital Signs Vital signs: Vital Signs Temp 97.5 F L 10/09/19 06:49 Pulse 100 10/09/19 06:49 Resp 18 10/09/19 06:49 BP 97/57 10/09/19 06:49 Pulse Ox 98 10/08/19 06:15 - Exam General Appearance: Patient appears to be stated age is alert, suspicious/paranoid. Fair hygiene and grooming, wearing glasses with intense eye contact. Behavior: No agitated behavior. Patient is calm and paranoid Speech: Patient's speech is fluent and nonpressured. Mood/Affect: Mood is improving mildly, affect is congruent and blunted affect Suicidality/Homicidality: Patient denies having any suicidal or homicidal ideation intent or plan. Perceptions: Patient denies any auditory or visual hallucinations. Though content/process: [place], poverty of content and speech, significant paranoia. Memory and concentration: AOX3, grossly intact for the purposes of this session Judgment and insight: Poor Assessment and Plan Assessment: Schizophrenia, rule out alcohol use disorder Plan: Continue with current diagnosis. Patient continues to meet criteria for inpatient psychiatric admission for symptom stabilization and safety. Patient will be maintained on current psychotropic medication regimen. Patient continues to take his medication and will monitor for compliance and for any psychotropic medication side effects. Will continue to monitor ongoing response to treatment. Vital signs reviewed.
[2019-10-10 06:30] VITALS: PULSE 70
[2019-10-10] MEDS: NICOTINE 14MG/24HR PATCH TRANSDERM SCH (09:16)
--- NOTE | 2019-10-10 11:33 | P.PN ---
Progress Note - Text Interval history: The patient is found in the hallway he follows me to an interview room. He reports that the family meeting did not go well. He had some difficulty describing specifics however. Social work indicates that the patient's did describe some continued symptoms of psychosis during that meeting. He was upset to learn that his mother has filed for guardianship. There was talk of him possibly requiring placement outside of her home but he indicates he wants to return to his mother's residence. He indicates that he is eating and sleeping. He remains compliant with medication he has no questions regarding his psychotropic medications. Mental status exam: The patient is alert he is seated calmly in the chair. Hygiene and fair grooming he is mildly disheveled. He is dressed in his own clothing. He is wearing his eyeglasses. He continues to have a staring eye contact. He has little change in affect. He reports his mood is fine. He is reporting no suicidal or homicidal thoughts. He denies having any auditory or visual hallucinations although they likely persist at least in residual form. He continues to have some paranoid thinking but again that has been part of his known baseline. He demonstrates no verbal or physical aggressiveness he demonstrates no involuntary repetitive movements. Insight and judgment are slowly improving. He is oriented to person place and date. Plan: The patient will continue on his current psychotropic medications. Social work will explore if the patient's mother is willing to have him return to her home or not. The patient is known to have psychosis at baseline and it seems that he is beginning to approximate his baseline in terms of his current status. We will monitor him for safety. He is encouraged to continue participating in the milieu. Vital signs reviewed.
[2019-10-11 06:44] VITALS: BP 123/65; RESP 15; TEMP 97.7
[2019-10-11] MEDS: NICOTINE 14MG/24HR PATCH TRANSDERM SCH (09:14)
--- NOTE | 2019-10-11 11:29 | P.DS ---
Providers Date of admission: 09/23/19 04:43 Expected date of discharge: 10/11/19 Attending physician: Remy Recinos Consults: 09/23/19 04:57 Consult Physician Routine Consulting Provider: Anjelica Foster Consult Reason/Comments: new admission, H&P Do you want consulting provider notified?: Yes Primary care physician: Stated None - Discharge Diagnosis(es) (1) Schizophrenia Current Visit: No Status: Acute Priority: High Hospital Course: Brief summary of admission note: This patient is a 28-year-old single male who was admitted to the mental health unit through the emergency room with a petition and clinical certificate. The petition indicated the patient was making statements that the police officers were telling him to get drunk and crashing her vehicle. The patient had indicated "they are telling me the material checker are after me". Upon evaluation he was describing to me that he could see somebody sitting in a vacant chair he indicated he was experiencing auditory hallucinations. These symptoms were causing him to be quite disorganized. He felt he was forced to the hospital for on just reasons. He carries a diagnosis of schizophrenia. He had been previously treated on this mental health unit and discharged on invega systemic. His deferral agreement had lapsed and he had discontinued his medication. For full details please refer to my psychiatric evaluation dated 09/23/2019. Summary of hospital course: The patient was admitted to the mental health unit in voluntarily. I completed a second clinical certificate. A deferral conference was held and the patient deferred his court hearing. We continued the Abilify at that [facility] attempted to start. We titrated the dose during the course of his admission and he was started on Abilify maintena 400 mg IM which was given on 10/02/2019. The patient was seen by internal medicine for routine history and physical exam. Social work is met with the patient several times for discharge planning purposes. Social work has been in close contact with the patient's mother. A meeting was held with his mother this past Monday. The patient was informed that she is pursuing guardianship of him. His mother states that she is agreeable to having him return home to reside with her so long as he remains on injectable medication. The patient has demonstrated improvement in the sense that he has been directable he has demonstrated no agitated behavior. His affect has improved in the sense that he is no longer having any strange outbursts of laughter. He is known to have psychotic symptoms at baseline and it seems he is approximating that baseline. He will transition to [facility] for outpatient care. Mental status exam: The patient is alert he is an overweight male he is dressed in his own clothing. Hygiene grooming fair. He is wearing his eyeglasses. Eye contact is staring in nature. Affect is constricted. Indicates his mood is fine. He denies having any suicidal ideation intent or plan. He reports no homicidal ideation intent or plan. Specifically he states he has no thoughts of hurting his mother or any other family member. He states "I am not violent". He is reporting no current auditory or visual hallucinations. He denies having any paranoid or persecutory thoughts although he has some residual paranoid thinking. Again that is likely part of his baseline function. He demonstrates no verbal or physical aggressiveness he demonstrates no involuntary repetitive movements. Insight and judgment have improved during the hospitalization given his diagnosis and how he presented at admission. He is oriented to person place and date. Impressions 1. Schizophrenia, rule out alcohol use disorder Plan: The patient will be discharged mental health unit today. He will continue on Abilify 20 mg for 4 more days than he may discontinue the oral education. He received Abilify maintena 400 mg IM on 10/02/2019. His next dose will be due 10/30/2019. He is instructed to abstain from any use of alcohol marijuana or illicit drugs. At this time there is no imminent safety risk he is appropriate for transition back to outpatient care. He will follow up with [facility] as part of his deferral agreement. He is instructed to return to the hospital for any acute safety concerns. Patient Condition at Discharge: Stable Plan - Discharge Summary New Discharge Prescriptions: New ARIPiprazole [Abilify] 20 mg PO DAILY #4 tab ARIPiprazole IM [Abilify Maintena] 400 mg IM Q28D #1 each Continue Nicotine 14Mg/24Hr Patch [Habitrol] 1 patch TRANSDERM DAILY #14 patch Discontinued Omeprazole [PriLOSEC] 20 mg PO AC-BRKFST #30 cap Paliperidone IM [Invega Sustenna] 156 mg IM Q28D Benztropine Mesylate [Cogentin] 0.5 mg PO BID Discharge Medication List ARIPiprazole IM [Abilify Maintena] 400 mg IM Q28D #1 each 10/11/19 [Rx] ARIPiprazole [Abilify] 20 mg PO DAILY #4 tab 10/11/19 [Rx] Nicotine 14Mg/24Hr Patch [Habitrol] 1 patch TRANSDERM DAILY #14 patch 10/11/19 [Rx] Follow up Appointment(s)/Referral(s): [facility] [Outside] - 10/14/19 12:00 pm (10-14-19 @ 12:00 with Rani Kingston 10-15-19 @ 11:00 with ELLIS Flores) None,Stated [Primary Care Provider] - 1-2 days Activity/Diet/Wound Care/Special Instructions: Activity and diet as tolerated. Avoid the use of street drugs and alcohol. Take all medications as prescribed. When you are in need of refills on your m edications please contact your medical provider and/or outpatient psychiatrist to have this done. Please go to scheduled outpatient appointment for aftercare treatment. If symptoms return or become worse, call the crisis line at and/or go to the nearest emergency room for evaluation.
== END 2019-10-11 14:45 | disposition home or self-care (01) | DRG 885 ==
LOC: EC 23:54 → 3MHU 09-23 04:43
PROVIDERS: ADMIT Psychiatry & Neurology Psychiatry; ATTEND Psychiatry & Neurology Psychiatry
DX: F20.9 Schizophrenia, unspecified (principal); Z91.128 Patient's intentional underdosing of medication regimen for other reason; E66.3 Overweight; T50.906A Underdosing of unspecified drugs, medicaments and biological substances, initial encounter; F41.9 Anxiety disorder, unspecified; N62 Hypertrophy of breast; F31.9 Bipolar disorder, unspecified; Z68.29 Body mass index [BMI] 29.0-29.9, adult; F17.200 Nicotine dependence, unspecified, uncomplicated; Z79.899 Other long term (current) drug therapy; Y63.6 Underdosing and nonadministration of necessary drug, medicament or biological substance; Z88.8 Allergy status to other drugs, medicaments and biological substances
CPT/HCPCS: 80306; 82075; 99285

== ENCOUNTER 2019-11-16 21:30 | Inpatient (IN) | payer BC, MEDICAID, OTHER ==
[2019-11-16] MEDS ORDERED: ZIPRASIDONE 20 MG VIAL IM PRN (23:18)
[2019-11-16] MEDS ORDERED: MAGNESIUM HYDROXIDE 2,400 MG/10 ML CUP PO PRN (23:18)
--- NOTE | 2019-11-17 00:12 | ED ---
Psych HPI - General Chief Complaint: Psychiatric Symptoms Stated Complaint: Mental Health Source: patient, family Mode of arrival: ambulatory - History of Present Illness Initial Comments: Александр is a 29yo M past medical history of paranoid schizophrenia. Patient has previously had court ordered medications. Patient's medication regimen was recently changed, he is supposed to be taking Cogentin family reports he has not been taking his home. Family's concern that he is increasing in his paranoia an odd behaviors. states that he is only supposed to Cogentin if he has symptoms and is not having symptoms so he has not been taking his medications. - Related Data Previous Rx's Medication Instructions Recorded ARIPiprazole IM [Abilify Maintena] 400 mg IM Q28D #1 each 10/11/19 ARIPiprazole [Abilify] 20 mg PO DAILY #4 tab 10/11/19 Nicotine 14Mg/24Hr Patch [Habitrol] 1 patch TRANSDERM DAILY #14 patch 10/11/19 Allergies Allergy/AdvReac Type Severity Reaction Status Date / Time risperidone [From Risperdal] Allergy Rash/Hives Verified 11/16/19 21:35 Review of Systems ROS Statement: Those systems with pertinent positive or pertinent negative responses have been documented in the HPI. ROS Other: All systems not noted in ROS Statement are negative. Past Medical History Past Medical History: No Reported History History of Any Multi-Drug Resistant Organisms: None Reported Past Surgical History: No Surgical Hx Reported Past Psychological History: Anxiety, Bipolar, Depression, Schizophrenia Smoking Status: Current every day smoker Past Alcohol Use History: Occasional Past Drug Use History: None Reported General Exam - General Exam Comments Initial Comments: Physical Exam GENERAL: Patient is well-developed and well-nourished. Patient is nontoxic and well-hydrated and is in no distress. HENT: Normocephalic, Atraumatic. EYES: PERRL, EOMI PULMONARY: Unlabored respirations. CARDIOVASCULAR: RRR Warm and well perfused extremities ABDOMEN: Non-distended SKIN: No rashes or bruising : Deferred NEUROLOGIC: Alert and oriented Normal speech Normal gait MUSCULOSKELETAL: Moving all extremities with no apparent injury PSYCHIATRIC: Paranoid Odd affect Limitations: no limitations Course Vital Signs 11/16/19 21:32 Temperature 96.8 F L Pulse Rate 136 H Respiratory 20 Rate Blood Pressure 159/98 O2 Sat by Pulse 98 Oximetry Medical Decision Making - Medical Decision Making The patient was seen and evaluated history is obtained from patient and family members Patient medically cleared for evaluation by EPS EPS recommends admission to the hospital, I agree the patient is paranoid and would likely benefit from admission to ensure that he is getting his proper medications Patient certification was completed Patient admitted to psychiatric facility Disposition Clinical Impression: Schizophrenia Disposition: TRANSFER TO PSYCH HOSP/UNIT Condition: Serious Is patient prescribed a controlled substance at d/c from ED?: No
[2019-11-17] MEDS: BENZTROPINE 2 MG/2 ML AMP IM SCH ×2 (09:13→09:37)
[2019-11-17] MEDS: NICOTINE 21MG/24HR PATCH TRANSDERM SCH ×2 (09:13→09:38)
[2019-11-17] MEDS ORDERED: BENZTROPINE MESYLATE 1 MG TAB PO PRN (09:33)
--- NOTE | 2019-11-17 14:44 | P.HP ---
Psychiatric H&P - . H&P Date: 11/17/19 History & Physical: Allergies Allergy/AdvReac Type Severity Reaction Status Date / Time risperidone [From Risperdal] Allergy Rash/Hives Verified 11/17/19 02:48 Vital Signs Temp 97.1 F L 11/16/19 23:44 Pulse 93 11/16/19 23:44 Resp 14 11/16/19 23:44 BP 125/85 11/16/19 23:44 Pulse Ox 99 11/16/19 23:44 Intake & Output 11/16/19 11/17/19 11/17/19 18:59 06:59 18:59 Weight 89.074 kg 11/17/19 14:33 IDENTIFYING DATA: 28-year-old single male patient HPI: Patient admitted on an active deferral treatment order to the inpatient psychiatric unit. Per chart history patient is on an active order and has been compliant with invega sustenna. Per chart history he was recently changed to Prolixin decanoate at [facility], per chart history there was concern of some increase in psychosis symptomatology and was admitted for stabilization. Patient at this point in time is not agreeable to meeting with me for the interview. He relates that he will talk with Dr. Recinos tomorrow. PAST PSYCHIATRIC HISTORY: Patient had a recent admission to the inpatient psychiatric unit in September 2019. He was discharged with plan to continue with [facility]. Per chart history of diagnosis of schizophrenia. Per chart history has had 2 prior admissions to this admission. Per chart history no known history of suicide attempts. PMH: Per chart history none reported ALLERGIES: Risperidone MEDICATIONS: Tylenol when necessary, Maalox when necessary, Cogentin when necessary, Ativan when necessary, milk of magnesia when necessary, Habitrol patch when necessary, Geodon when necessary CHEMICAL DEPENDENCY HISTORY: Per chart history he verbalizes using alcohol the last admission, unknown frequency. Per chart history previously denied any history of marijuana or illicit drug use. FAMILY PSYCHIATRIC HISTORY: Not known FAMILY CHEMICAL DEPENDENCY HISTORY: Not known SOCIAL HISTORY: Per chart history single, no children. Per chart history high school education and degree from [employer]. MENTAL STATUS EXAM: He is found in his room lying in bed. He is not agreeable to meet with me at this time. He relates that he will talk with Dr. Recinos tomorrow. He does not display any agitation. He does not make any comments about thoughts of harm to self or others. STRENGTHS/WEAKNESSES: Strengths-some support, inactive [facility] treatment. Weaknesses-coping skills INTELLECTUAL FUNCTIONING: Average IMPRESSION: Schizophrenia by history PLAN: Patient is admitted to the inpatient psychiatric unit [facility] on an active deferral treatment order. He is placed on SP 15 minute precautions. He reports as being group and activity therapies. Baseline laboratory workup was done the patient and medical consultation will be ordered. He just recently received an injection of Prolixin Decanoate. We'll continue to monitor his symptoms and monitor for any medication side effects. We will look into any support systems. Estimated length of stay is 5-7 days. Prognosis is guarded.
--- NOTE | 2019-11-18 00:52 | P.HPIM ---
History of Present Illness H&P Date: 11/17/19 Chief Complaint: Medical evaluation 29-year-old male history of GERD and schizophrenia Patient has court-ordered medications family brought him in due to noncompliance with his medications patient denies any reports that he is only supposed take Cogentin if he is symptomatic. Otherwise he is currently denying any suicidal ideation he denies any complaints of fever chills chest pain trouble breathing nausea vomiting or upper respiratory infection or any diarrhea. Patient denies any smoking, drug of abuse, or alcohol use Review of Systems Pertinent positives as noted in HPI. All other systems were reviewed and are negative Past Medical History Past Medical History: No Reported History History of Any Multi-Drug Resistant Organisms: None Reported Past Surgical History: No Surgical Hx Reported Past Psychological History: Anxiety, Bipolar, Depression, Schizophrenia Smoking Status: Current every day smoker Past Alcohol Use History: Occasional Past Drug Use History: None Reported Medications and Allergies Home Medications Medication Instructions Recorded Confirmed Type ARIPiprazole IM [Abilify Maintena] 400 mg IM Q28D #1 each 10/11/19 11/17/19 Rx ARIPiprazole [Abilify] 20 mg PO DAILY #4 tab 10/11/19 11/17/19 Rx Nicotine 14Mg/24Hr Patch [Habitrol] 1 patch TRANSDERM DAILY #14 patch 10/11/19 11/17/19 Rx Allergies Allergy/AdvReac Type Severity Reaction Status Date / Time risperidone [From Risperdal] Allergy Rash/Hives Verified 11/17/19 02:48 Physical Exam Constitutional: No acute distress, conversant, pleasant Eyes: Anicteric sclerae, moist conjunctiva, no lid-lag Pupils equal round reactive to light ENMT: NC/AT Oropharynx clear, no erythema, exudates Neck: Supple, FROM, no masses, or JVD No carotid bruits No thyromegaly Lungs: Clear to auscultation Clear to percussion Normal respiratory effort, no accessory muscle use Cardiovascular: Heart regular in rate and rhythm, No murmurs, gallops, or rubs No peripheral edema Abdominal: Soft Nontender, no guarding, rebound or rigidity Abdomen moving with respiration Normoactive bowel sounds No hepatomegaly, No splenomegaly No palpable mass No abdominal wall hernia noted Skin: Normal temperature, tone, texture, turgor No induration No subcutaneous nodules No rash, lesions No ulcers Extremities: No digital cyanosis No clubbing Pedal pulses intact and symmetrical Radial pulses intact and symmetrical No calf tenderness Psychiatric: Alert and oriented to person, place and time Appropriate affect Poor judgement Neuro Muscles Strength 5/5 in all 4 extremities Sensation to light touch grossly present throughout Cranial nerves II-XII grossly intact No focal sensory deficits Lymphatics: no palpable cervical or supraclavicular , or inguinal lymph nodes Assessment and Plan Assessment: 29-year-old male with schizophrenia comes in due to noncompliance with his medications he currently denies any medical concerns medicine was consulted for medical management Plan: Schizophrenia Medical noncompliance Management per psych Low risk for DVT patient ambulatory Thank you for allowing us to participate in the care of this patient. We will follow peripherally. Do not hesitate to contact us with questions. Someone can be reached from the [facility] hospitalist group at all hours of the day at [phone].
[2019-11-18] MEDS: NICOTINE 21MG/24HR PATCH TRANSDERM SCH (09:43)
--- NOTE | 2019-11-18 12:07 | P.PN ---
Subjective Progress Note Date: 11/18/19 Principal diagnosis: Schizophrenia I reviewed the medical record, discuss his treatment and treatment plan during team meeting, spoke with his outpatient provider (Nayeli Bower) and attempted to interview the patient. He was minimally cooperative. He initially got out of bed but longterm towards my office he turned around and returned to bed. He stated that he was "too tired" to talk. This is his third admission to our unit. He was last discharged on 10/11/2019 with a diagnosis of schizophrenia. His discharge medications included Abilify maintaining a 400 mg in his last injection on the unit was 10/02/2018. At discharge he denied experiencing auditory or visual hallucinations. He denied paranoid or piscatory thoughts but but had "residual paranoid thinking." He received his first and only postdischarge injection of Abilify on 10/29/2019. His clinical condition deteriorated between his first outpatient injection in his apartment with his provider on 11/12/2019 when he presented agitated, confused and disorganized. He expressed paranoid delusional beliefs and auditory hallucinations. He provided events started Prolixin 50 mg IM was planned to administer injections weekly. Objective - Vital Signs Vital signs: Vital Signs Temp 98.5 F 11/18/19 06:46 Pulse 85 11/18/19 06:46 Resp 16 11/18/19 06:46 BP 117/57 11/18/19 06:46 Pulse Ox 99 11/16/19 23:44 - Exam He presented as a disheveled appearing 29-year-old male who was minimally cooperative. He was guarded and suspicious. Assessment and Plan Assessment: He is severely mentally ill. Plan: Continue inpatient hospitalization due to severity of psychotic symptoms. Safety precautions. Begin Prolixin 5 mg by mouth twice a day. Continue Prolixin Decanoate based on tolerance and response to the oral Prolixin. reinforcing iron worker helper to assist mother with obtaining guardianship. Evaluate clinical status r esponse to treatment daily basis. Encourage but this patient therapeutic groups and activities as tolerated.
[2019-11-19] MEDS: NICOTINE 21MG/24HR PATCH TRANSDERM SCH (09:17)
--- NOTE | 2019-11-19 12:15 | P.PN ---
Subjective Progress Note Date: 11/19/19 Principal diagnosis: Schizophrenia I reviewed the medical record, interviewed the patient and discuss his treatment and treatment plan during team meeting. He was guarded and irritable during interview. He volunteers little information and became angry when I revisited his history. He maintains he is unaware of the reason for this hospitalization. He continues to maintain the belief that "the police" are forcing him to commit a crime so that he could be punished. He left the office when I questioned this belief. Objective - Vital Signs Vital signs: Vital Signs Temp 97.7 F 11/19/19 06:31 Pulse 61 11/19/19 06:31 Resp 16 11/18/19 06:46 BP 124/60 11/19/19 06:31 Pulse Ox 97 11/19/19 06:31 - Exam He presented as a casually groomed moderate obese 29-year-old male who was minimally cooperative. He was irritable, guarded and suspicious. He had gynecomastia. He had a blunted facial expression. He showed psychomotor retardation but no abnormal movements. His speech was not spontaneous but consistent with his mood. His affect was labile and at times intense and appropriate. He did not express suicidal ideation, wishes or homicidal ideation. He did not express such depressive cognitions of hopelessness, helplessness and worthlessness. He maintains a persistent paranoid delusional belief. His thinking was concrete and associations were coherent. He denied hallucinations and did not appear to be responding to internal stimuli. Assessment and Plan Assessment: Appendectomy remains severely and persistently mentally ill and minimally unchanged from admission. He is prominent gynecomastia most likely secondary to treatment with antipsychotic medications with strong dopamine activation. Plan: Continue inpatient hospitalization due to severity of psychotic symptoms. Safety precautions. Continue oral Prolixin at current dose. Discuss treatment with alternative antipsychotics that are less Prolactin activating than Prolixin such as Seroquel, Geodon or clozapine. The [facility] is that he is noncompliant with oral medications. Consider a trial of mood stabilizer such as lithium or Tegretol. Encourage participation in therapeutic groups and activities. Evaluate clinical status response to treatment daily basis.
[2019-11-20] MEDS: NICOTINE 21MG/24HR PATCH TRANSDERM SCH (09:17)
--- NOTE | 2019-11-20 14:05 | P.PN ---
Subjective Progress Note Date: 11/20/19 Principal diagnosis: Schizophrenia I reviewed the medical record, interviewed the patient and discuss his treatment and treatment plan during team meeting. He was guarded but much less irritable than yesterday. He complained of blurred vision and nipple pain. He denied is experiencing breast tenderness or discharge from his temples. He alleged has been experiencing more pain since he started Prolixin. Reviewed his treatment history and discuss antipsychotic options. He requested to restart Abilify and several other antipsychotics that are less likely to stimulate prolactin such as Geodon, Zyprexa, Seroquel or clozapine. He denied problems with sleep or appetite. He is had no episodes of behavioral dyscontrol. He's been compliant with prescribed medications. He has been intermittently attending therapeutic groups and activities. Objective - Vital Signs Vital signs: Vital Signs Temp 98.0 F 11/20/19 06:13 Pulse 93 11/20/19 06:13 Resp 15 11/20/19 06:13 BP 107/55 11/20/19 06:13 Pulse Ox 97 11/19/19 06:31 - Exam He presented as a casually groomed moderate obese 29-year-old male who was guarded but cooperative. He had gynecomastia. He had a blunted facial expression. He showed psychomotor retardation but no abnormal movements. His speech was not spontaneous and consistent with his mood. He was suspicious, guarded and paranoid. He did not express suicidal ideation, wishes or homicidal ideation. He did not express such depressive cognitions of hopelessness, helplessness and worthlessness. He did not voluntarily his chronic delusional belief i.e. that the police wanted to arrest him and punish him. His thinking was concrete and associations were coherent. He denied hallucinations and did not appear to be responding to internal stimuli. Assessment and Plan Assessment: He is having side effects to the 10 mg dose of Prolixin including blurred vision and double tenderness. He has also has gynecomastia from past exposure to prolactin stimulating antipsychotic medications. He remains guarded and suspicious. Plan: Continue inpatient hospitalization due to severity of psychotic symptoms. Safety precautions. Discontinue prolactin and restart Abilify 20 mg daily. Consider a trial of mood stabilizer such as lithium or Tegretol. Encourage participation in therapeutic groups and activities. Evaluate clinical status response to treatment daily basis.
[2019-11-20] MEDS: MAG HYDROX/AL HYDROX/SIMETH 30 ML CUP PO PRN (15:09)
[2019-11-21] MEDS: NICOTINE 21MG/24HR PATCH TRANSDERM SCH (09:35)
--- NOTE | 2019-11-21 11:54 | P.PN ---
Subjective Progress Note Date: 11/21/19 Principal diagnosis: Schizophrenia I reviewed the medical record, interviewed the patient and discuss his treatment and treatment plan during team meeting. He was in bed most of the morning. He complained of "overwhelming" anxiety and "foot pain." He complained of "stiffness" and increased sedation from the 20 mg dose of Abilify. He described continued auditory hallucinations. "They" say "put it in his pocket, the police will find it. He will go to correction." He described overwhelming fear that he will be arrested and sent to correction. Objective - Vital Signs Vital signs: Vital Signs Temp 97.4 F L 11/21/19 06:40 Pulse 84 11/21/19 06:40 Resp 15 11/20/19 06:13 BP 111/57 11/21/19 06:40 Pulse Ox 97 11/21/19 06:40 - Exam He presented as a casually groomed moderate obese 29-year-old male who was guarded but cooperative. He had gynecomastia. He had a blunted facial expression. He showed psychomotor retardation but no abnormal movements. He did not have increased muscle tone in arms or shoulder. His speech was not spontaneous and consistent with his mood. His mood was labile and he laughed inappropriately during interview. He did not express suicidal ideation, wishes or homicidal ideation. He did not express such depressive cognitions of hopelessness, helplessness and worthlessness. He again talked about the chronic delusional belief that he has committed a crime, the police to arrest him and he will go to correction. His thinking was concrete and associations were coherent. He He described continued auditory hallucinations (although he does not recognize them as hallucinations).. Assessment and Plan Assessment: He appears more sedated today most likely from the initial dose of Abilify. He continues to described paranoia, auditory hallucinations and paranoid delusional beliefs. Plan: Continue inpatient hospitalization due to severity of psychotic symptoms. Safety precautions. Decrease Abilify to 10 mg daily. Consider a trial of mood stabilizer such as lithium or Tegretol. Encourage participation in therapeutic groups and activities. Evaluate clinical status response to treatment daily basis.
[2019-11-21] MEDS: LORazepam 1 MG TAB PO PRN ×2 (12:06→18:52)
[2019-11-22] MEDS: ARIPiprazole 10 MG TAB PO SCH (09:15)
[2019-11-22] MEDS: NICOTINE 21MG/24HR PATCH TRANSDERM SCH (09:15)
[2019-11-22 12:39] VITALS: BMI 30.7
--- NOTE | 2019-11-22 13:52 | P.PN ---
Subjective Progress Note Date: 11/22/19 Principal diagnosis: Schizophrenia, gynecomastia I reviewed the medical record, interviewed the patient and discuss his treatment and treatment plan during team meeting. He described experiencing both auditory and visual hallucinations. He talked about having "voices in my head" that "tell me that I'm going to skilled nursing", "have outstanding warrants", " that I will loose my disability." He alleges that he sees the police and the SWAT team on the unit. He complains about people coming in the hospital room and alleged that "we" gave him an injection and shoulder last night. I reviewed the record and he receives no injections. He complained of continued sedation from the A bilify. He declined a mood stabilizer such as lithium or Tegretol. He refused to consider clozapine. Objective - Vital Signs Vital signs: Vital Signs Temp 97.8 F 11/22/19 06:37 Pulse 80 11/22/19 06:37 Resp 18 11/22/19 06:37 BP 112/88 11/22/19 06:37 Pulse Ox 95 11/22/19 06:37 - Exam He presented as a casually groomed moderate obese 29-year-old male who was guarded but cooperative. He had gynecomastia. He had a blunted facial expression. He was guarded and suspicious. He showed psychomotor retardation but no abnormal movements. His speech was not spontaneous. He did not express suicidal ideation, wishes or homicidal ideation. He did not express such depressive cognitions of hopelessness, helplessness and worthlessness. He did not talk about his chronic delusional beliefs. His thinking was concrete and associations were coherent. He described both auditory and visual hallucinations but appeared to be internally preoccupied. Assessment and Plan Assessment: He appears more sedated today most likely from the initial dose of Abilify. He remains paranoid and and continues to experience hallucinations. Plan: Continue inpatient hospitalization due to severity of psychotic symptoms. Safety precautions. Continue Abilify to 10 mg daily. Continue to talk about adding a mood stabilizer to the Abilify or changing the antipsychotic to clozapine. Encourage participation in therapeutic groups and activities. Evaluate clinical status response to treatment daily basis.
[2019-11-22] MEDS: MAG HYDROX/AL HYDROX/SIMETH 30 ML CUP PO PRN (23:13)
[2019-11-23] MEDS: NICOTINE 21MG/24HR PATCH TRANSDERM SCH (09:18)
[2019-11-23] MEDS: ARIPiprazole 10 MG TAB PO SCH (09:18)
--- NOTE | 2019-11-23 13:03 | P.PN ---
Progress Note - Text Progress Note Date: 11/23/19 Subjective: Patient was seen today as a cross coverage for Dr. Yu. The patient was evaluated, chart reviewed, case discussed with the treatment team. Patient reported fair sleep, and according to chart review patient slept about 4 hours last night. Appetite was reported as "fair ". Patient has not been going to groups and other unit activities. The patient is compliant with his medications and denies any adverse reactions. Patient presented paranoid, staring and very guarded in answering questions. He reports still hearing voices telling him to go drink and drive and "torturing" him. Reports still feeling paranoid. Denies visual hallucinations. Denies suicidal or homicidal ideation. Discussed with the patient to increase Abilify but he refused. Objective: Vitals has been reviewed. Mental status examination; The patient appears his stated age, fairly groomed, average body weight, no specific features. Gait/posture: Normal gait, Normal arm swinging: No abnormal movements. Attitude and behavior: Guarded, not engaged, not cooperative, staring eye con tact. Motor activity: Decreased psychomotor activity Speech: Slow, soft volume, not pressured Mood: Anxious Affect: Flat Thought form: Decreased rate thoughts. Thought content: Paranoid delusions, denies suicidal thoughts, denies homicidal thoughts, denies intentions or plans. Perception: Reports auditory hallucinations, but denies any visual hallucinations Attention: No impairment. Orientation: Patient patient was oriented to time place person and situation. Insight: Patient has limited insight about his psychiatric disorder. Judgment: Patient has limited judgment about his psychiatric treatment. Assessment: Schizophrenia Plan: Continue inpatient level of care due to need for further treatment and stabilization provide psychiatric education regarding his diagnosis and treatment Precautions: Continue 15 minutes check for safety. Consider medical consultation if any acute medical issues arise. Medications: Continue Abilify for psychotic symptoms. Patient refused any increase in the dose. Discharge patient to OUTPATIENT services upon a stabilization
[2019-11-24] MEDS: NICOTINE 21MG/24HR PATCH TRANSDERM SCH (09:10)
[2019-11-24] MEDS: ARIPiprazole 10 MG TAB PO SCH (09:11)
--- NOTE | 2019-11-24 12:57 | P.PN ---
Progress Note - Text Progress Note Date: 11/24/19 Subjective: Patient was seen today as a cross coverage for Dr. Yu. The patient was evaluated, chart reviewed, case discussed with the treatment team. Patient reported poor sleep last night, but denies any appetite problems. Patient has not been going to groups and other unit activities. The patient is compliant with his medications and denies any adverse reactions. Patient was pacing for most of the time and has was laughing inappropriately. He continued to have paranoid ideation but denies any auditory hallucinations today. Patient reports feeling depressed because his mother was a guardianship but he denies any suicidal ideation. He denies any severe mood swings, agitation, and denies homicidal ideation. Discussed with patient medication changes to help with the sleep and to increase Abilify, but he refused any changes. Objective: Vitals has been reviewed. Mental status examination; The patient appears his stated age, fairly groomed, average body weight, no specific features. Gait/posture: Normal gait, Normal arm swinging: No abnormal movements. Attitude and behavior: Guarded, not engaged, not cooperative, staring eye contact. Motor activity: Decreased psychomotor activity Speech: Slow, soft volume, not pressured Mood: Anxious Affect: Flat Thought form: Decreased rate thoughts. Thought content: Paranoid delusions, denies suicidal thoughts, denies homicidal thoughts, denies intentions or plans. Perception: Reports auditory hallucinations, but denies any visual hallucinations Attention: No impairment. Orientation: Patient patient was oriented to time place person and situation. Insight: Patient has limited insight about his psychiatric disorder. Judgment: Patient has limited judgment about his psychiatric treatment. Assessment: Schizophrenia Plan: Continue inpatient level of care due to need for further treatment and stabiliz ation provide psychiatric education regarding his diagnosis and treatment Precautions: Continue 15 minutes check for safety. Consider medical consultation if any acute medical issues arise. Medications: Continue Abilify for psychotic symptoms. Patient refused any increase in the dose. Discharge patient to OUTPATIENT services upon a stabilization
[2019-11-24] MEDS: MAG HYDROX/AL HYDROX/SIMETH 30 ML CUP PO PRN (13:53)
[2019-11-25] MEDS: ARIPiprazole 10 MG TAB PO SCH (09:43)
[2019-11-25] MEDS: NICOTINE 21MG/24HR PATCH TRANSDERM SCH (09:43)
--- NOTE | 2019-11-25 14:12 | P.PN ---
Subjective Progress Note Date: 11/25/19 Principal diagnosis: Schizophrenia, gynecomastia I reviewed the medical record, interviewed the patient and discuss his treatment and treatment plan during team meeting. He complained of sedation from the morning dose of Abilify. He described continued psychotic experiences including auditory hallucinations and maintains the persistent paranoid belief that the police are following him and want him to go to longterm. He was guarded and suspicious and left the office when I ask questions about his psychotic experiences. Later in the morning, he was walking the hallway with his hands behind his back. He alleged she was hearing a voice telling him that he is under arrest and to put his hands behind his back. We again discussed treatment options. He declined recommendation for mood stabilizer such as lithium or Tegretol. He again refused to consider clozapine. Objective - Vital Signs Vital signs: Vital Signs Temp 97.7 F 11/25/19 06:40 Pulse 84 11/25/19 06:40 Resp 14 11/25/19 06:40 BP 115/61 11/25/19 06:40 Pulse Ox 95 11/22/19 06:37 Intake & Output 11/24/19 11/25/19 11/25/19 18:59 06:59 18:59 Weight 89.1 kg - Exam He presented as a casually groomed moderate obese 29-year-old male with gynecomastia. He had a blunted facial expression. He was guarded and suspicious. He showed psychomotor retardation but no abnormal movements. His speech was not spontaneous. He did not express suicidal ideation, wishes or homicidal ideation. He did not express such depressive cognitions of hopelessness, helplessness and worthlessness. He describes paranoid ideation, paranoid delusional beliefs regarding the police. His thinking was concrete and associations were coherent. He described both auditory and visual h allucinations. Assessment and Plan Assessment: Remains severely mentally ill and only moderately improved from admission. He is no longer experiencing breast or nipple tenderness. Plan: Increase Abilify to 15 mg and change dosing to at bedtime. Begin Lamictal 25 mg by mouth twice a day and titrated according to clinical response and tolerance to augment his response to the unit or psychotic. Continue to to discuss treatment with clozapine and or second antipsychotic. Restart long-acting Abilify injections.
[2019-11-25] MEDS: ARIPiprazole 15 MG TAB PO SCH (20:50)
[2019-11-25] MEDS: lamoTRIgine 25 MG TAB PO SCH (20:50)
[2019-11-26] MEDS ORDERED: ARIPiprazole IM 400 MG VIAL (NO COST) IM ONE (09:00)
[2019-11-26] MEDS ORDERED: ARIPiprazole IM SYRINGE 400 MG (NO CHARGE) IM ONE (09:00)
[2019-11-26] MEDS: NICOTINE 21MG/24HR PATCH TRANSDERM SCH (09:36)
[2019-11-26] MEDS: lamoTRIgine 25 MG TAB PO SCH ×2 (09:36→20:47)
--- NOTE | 2019-11-26 14:50 | P.PN ---
Subjective Progress Note Date: 11/26/19 Principal diagnosis: Schizophrenia, gynecomastia I reviewed the medical record, interviewed the patient and discuss his treatment and treatment plan during team meeting. She declined to continue Lamictal. He complains of lightheadedness with the initial doses. She requested a prescription for either Adderall or Concerta. I expressed my concern about prescribing him a psychostimulant. He alleged that he was "stable" for "a long time" when he was taking Abilify and Adderall. He would not consider alternative medications either Depakote, Tegretol, or clozapine. I explained the advantage seizure clozapine over Abilify. She denied that he experiences auditory hallucinations today to the time of our interview. He received his first injection of Abilify 400 mg. Objective - Vital Signs Vital signs: Vital Signs Temp 98.1 F 11/26/19 03:03 Pulse 104 H 11/26/19 03:03 Resp 15 11/26/19 03:03 BP 130/75 11/26/19 03:03 Pulse Ox 97 11/26/19 03:03 - Exam He was guarded, suspicious but casually dressed and groomed. He made eye contact and attended the interview. He left the interview prematurely with a statement that he "doesn't want to talk anymore." He denied experiencing auditory hallucinations and did not appear to be responding to internal stimuli during our interview. Assessment and Plan Assessment: He remains guarded and suspicious. He is having no adverse effects to the increased dose of Abilify record initial injection of Abilify Maintena. Plan: Maximize the dose of Abilify and continue with Abilify Maintena 400 mg monthly. Continue discussions about alternatives to Abilify including clozapine. I do not recommend prescribing a psychostimulant due to the risk of worsening psychotic symptoms.
[2019-11-26] MEDS: ARIPiprazole 15 MG TAB PO SCH (20:47)
[2019-11-27] MEDS: LORazepam 1 MG TAB PO PRN (00:14)
[2019-11-27] MEDS: NICOTINE 21MG/24HR PATCH TRANSDERM SCH (09:33)
--- NOTE | 2019-11-27 14:49 | P.PN ---
Subjective Progress Note Date: 11/27/19 Principal diagnosis: Schizophrenia, gynecomastia I reviewed the medical record, interviewed the patient and discuss his treatment and treatment plan during team meeting. He denied experiencing auditory hallucinations yesterday and this morning so far. He expressed concern about going home and hearing "them" command him to "get drunk", be arrested and sent to [facility] for drunk driving. I again talked about alternative treatments. He will not consent to clozapine. She would not agree to take a mood stabilizer such as Lamictal. He argued against continuing the oral dose of Abilify after he leaves the hospital despite my explanation that the oral dose is required to achieve adequate response. He showed the cognitive skills to add up the total dose of both a daily overdose and the monthly injection. Objective - Vital Signs Vital signs: Vital Signs Temp 98.1 F 11/26/19 03:03 Pulse 102 H 11/27/19 00:15 Resp 18 11/27/19 00:15 BP 111/68 11/27/19 00:15 Pulse Ox 97 11/26/19 03:03 - Exam He was casually groomed and dressed. He made eye contact and attempted to the interview. He is guarded, suspicious and irritable. He left the interview prematurely because I was insisting that he continue with the oral dose after discharge. He denied experiencing auditory hallucinations and did not appear to be responding to internal stimuli during our interview. Assessment and Plan Assessment: He denies experiencing auditory hallucinations and is not preoccupied by his chronic paranoid delusional beliefs but remains guarded, suspicious and irritable. He is refused to consent to alternate treatments. I suspect He will not continue the oral dose of Invega once he leaves the hospital. Plan: Increase Abilify to 20 mg at bedtime. Continue Invega 400 mg monthly. Continue to discuss treatment with clozapine and the mood stabilizer such as Lamictal, Tegretol or Depakote. Emphasized the risk of readmission if he were not to continue with the recommended treatment.
[2019-11-27] MEDS: ARIPiprazole 10 MG TAB PO SCH (20:54)
[2019-11-28] MEDS: NICOTINE 21MG/24HR PATCH TRANSDERM SCH (11:12)
--- NOTE | 2019-11-28 13:13 | P.PN ---
Subjective Progress Note Date: 11/28/19 Principal diagnosis: Schizophrenia, gynecomastia I reviewed the medical record, interviewed the patient and discuss his treatment and treatment plan during team meeting. The complained about the length of this hospitalization. He alleged that he is becoming more distressed longer remains in the hospital and talked about recent admissions were disruptive and behaviorally disturbed. We talked about treatment options. He remains opposed to taking a mood stabilizer or clozapine. He would only agree to continue taking oral Abilify in addition to the Abilify Maintena injections. Objective - Vital Signs Vital signs: Vital Signs Temp 97.2 F L 11/28/19 07:01 Pulse 77 11/28/19 07:01 Resp 16 11/28/19 07:01 BP 115/55 11/28/19 07:01 Pulse Ox 97 11/26/19 03:03 - Exam He was casually groomed and minimally cooperative. He has slow gait and decreased associated movements. He was irritable during interview. His speech was not spontaneous and decreased rate and volume. He denied experiencing auditory hallucinations did not appear to be responding to internal stimuli. His thinking was concrete but his associations were coherent and logical. Assessment and Plan Assessment: He remains irritable and shows little insight or understanding of his mental illness and need for treatment. He has been compliant with both the oral Abilify and the long-acting injections. Plan: Continue Abilify 20 mg daily and Abilify Maintena 400 mg IM monthly. Plan on discharge and 10/31/2019.
[2019-11-28] MEDS: ARIPiprazole 10 MG TAB PO SCH (20:34)
[2019-11-29] MEDS: NICOTINE 21MG/24HR PATCH TRANSDERM SCH (08:53)
--- NOTE | 2019-11-29 15:02 | P.PN ---
Subjective Progress Note Date: 11/29/19 Principal diagnosis: Schizophrenia, gynecomastia I reviewed the medical record, interviewed the patient and discuss his treatment and treatment plan during team meeting. The social science instructor and I also met with him to discuss his repeated refusal to consent to a family meeting. He became increasingly distressed during the meeting with the social science instructor. He was mumbling under his breath and expressed the chronic delusional belief about police officers. He met with the social science instructor when she called his mother. During the interview he made the statement that the person on the phone was not his mother and he wanted to speak with his "real mother". After telephone calls he sat in the social science instructor's office and refused to leave. Objective - Vital Signs Vital signs: Vital Signs Temp 97.8 F 11/29/19 06:00 Pulse 83 11/29/19 06:00 Resp 15 11/29/19 06:00 BP 100/55 11/29/19 06:00 Pulse Ox 97 11/29/19 06:00 - Exam He was casually groomed and pleasant on approach. He has gynecomastia. He had a flat facial expression. He was guarded and suspicious. He denied auditory hallucinations but appeared to be responding to internal stimuli. He expressed paranoid delusional beliefs. Assessment and Plan Assessment: He is not responding to maximal doses of Abilify. Will begin a second antipsychotic and pursue treatment with clozapine. Plan: Decrease Abilify to 15 mg at bedtime, begin Haldol 5 mg by mouth twice a day, obtain a comprehensive metabolic panel and a CBC with diff to complete the registration and are [facility]. He is not appropriate for discharge due to the severity of his psychotic symptoms.
[2019-11-29 15:25] LABS: Basophils % (A) 1 %; Eosinophils # (A) 0.2 k/uL (0-0.7); Eosinophils % (A) 2 %; HCT 47.8 % (39.0-53.0); HGB 16.1 gm/dL (13.0-17.5); Lymphocytes # (A) 1.7 k/uL (1.0-4.8); Lymphocytes % (A) 21 %; MCH 28.6 pg (25.0-35.0); MCHC 33.6 g/dL (31.0-37.0); MCV 85.1 fL (80.0-100.0); Mean Platelet Volume 7.3; Monocytes # (A) 0.4 k/uL (0-1.0); Monocytes % (A) 5 %; Neutrophils # (A) 5.5 k/uL (1.3-7.7); Neutrophils % (A) 70 %; Platelet Count 235 k/uL (150-450); RBC 5.62 m/uL (4.30-5.90); RDW 12.1 % (11.5-15.5); WBC 7.8 k/uL (3.8-10.6)
[2019-11-29 15:34] LABS: ALT 23 U/L (4-49); AST 25 U/L (17-59); African American GFR (CKD) >90 (>60 ml/min/1.73 sqM); Albumin 4.8 g/dL (3.5-5.0); Alkaline Phosphatase 55 U/L (38-126); Anion Gap 8 mmol/L; Blood Urea Nitrogen 16 mg/dL (9-20); Calcium 9.7 mg/dL (8.4-10.2); Carbon Dioxide 27 mmol/L (22-30); Chloride 105 mmol/L (98-107); Glucose 93 mg/dL (74-99); Non-African American GFR(CKD) 90 (>60 ml/min/1.73 sqM); Potassium 4.5 mmol/L (3.5-5.1); Sodium 140 mmol/L (137-145); Total Bilirubin 0.5 mg/dL (0.2-1.3); Total Protein 7.6 g/dL (6.3-8.2)
[2019-11-29] MEDS: ARIPiprazole 15 MG TAB PO SCH (20:45)
[2019-11-29] MEDS: HALOPERIDOL 5 MG TAB PO SCH (20:45)
[2019-11-30] MEDS: NICOTINE 21MG/24HR PATCH TRANSDERM SCH (09:36)
[2019-11-30] MEDS: HALOPERIDOL 5 MG TAB PO SCH ×2 (09:37→20:52)
--- NOTE | 2019-11-30 14:19 | P.PN ---
Progress Note - Text Progress Note Date: 11/30/19 Interval history: Patient was seen wandering the hallways and was directable and agreeable to s peak with investigative writer. Patient appears paranoid and suspicious of investigative writer. Patient asked investigative writer if he was a "swat member" and states that it is written on investigative writer's chest. Patient claims that he is trying to go to groups however states that people are telling him to get out of the group. Patient was concrete and paranoid throughout the end interview. He states that he is sleeping throughout the night and taking his medications. He states that "I'll always be paranoid". He has been taking his Haldol at this time and denies any problems with it. He states that his mood is "fine" and has a constricted affect. At this time patient denies any suicidal or homicidal ideations intent or plan. Denies any Auditory or visual hallucinations. Patient denies any side effects from the medications and has been compliant with meds. Mental status exam: General Appearance: Patient appears to be stated age is alert, paranoid/suspicious. Fair hygiene and grooming. Behavior: No agitated behavior. Patient is calm and directable. Paranoid. Speech: Patient's speech is fluent and nonpressured. [place]. Mood/Affect: Mood is "okay", affect is congruent and constricted. Suicidality/Homicidality: Patient denies having any suicidal or homicidal ideation intent or plan. Perceptions: Patient denies any auditory or visual hallucinations. Though content/process: Patient is paranoid and is concrete slashes poverty of content. Memory and concentration: AOX3, grossly intact for the purposes of this session Judgment and insight: Poor Assessment/Plan: Continue with current diagnosis. Patient continues to meet criteria for inpatient psychiatric admission for symptom stabilization and safety.Patient will be maintained on current psychotropic medication regimen. Reviewed CBC and BMP. Monitor for medication compliance and for any psychotropic medication side effects. Will continue to monitor ongoing response to treatment. Encouraged participation in milieu.
[2019-11-30] MEDS: ACETAMINOPHEN TAB 325 MG TAB PO PRN (20:52)
[2019-11-30] MEDS: ARIPiprazole 15 MG TAB PO SCH (20:52)
[2019-12-01] MEDS: HALOPERIDOL 5 MG TAB PO SCH ×2 (09:42→21:15)
[2019-12-01] MEDS: NICOTINE 21MG/24HR PATCH TRANSDERM SCH (09:43)
--- NOTE | 2019-12-01 11:21 | P.PN ---
Progress Note - Text Progress Note Date: 12/01/19 Interval history: Patient was seen wandering the hallways pacing back and forth down the hallways and was directable and agreeable to speak with global technical writer. Patient continues to appear paranoid and suspicious of global technical writer. Patient asked global technical writer who he was and what he wanted. Patient was concrete and had poverty of content in his speech. He states that he is sleeping throughout the night and taking his medications. He states that he is continuing to feel paranoid and having trust issues with other people on the unit. He has been taking his Haldol at this time and denies any problems with it. He states that his mood is "ok" and has a constricted affect. At this time patient denies any suicidal or homicidal ideations intent or plan. Denies any Auditory or visual hallucinations. Patient denies any side effects from the medications and has been compliant with meds. Mental status exam: General Appearance: Patient appears to be stated age is alert, paranoid/suspicious. Fair hygiene and grooming. Behavior: No agitated behavior. Patient is calm and directable. Paranoid. Speech: Patient's speech is fluent and nonpressured. [place]. Mood/Affect: Mood is "okay", affect is congruent and constricted. Suicidality/Homicidality: Patient denies having any suicidal or homicidal ideation intent or plan. Perceptions: Patient denies any auditory or visual hallucinations. Though content/process: Patient is paranoid and is concrete/poverty of content. Memory and concentration: AOX3, grossly intact for the purposes of this session Judgment and insight: Poor Assessment/Plan: Continue with current diagnosis. Patient continues to meet criteria for inpatient psychiatric admission for symptom stabilization and safety.Patient will be maintained on current psychotropic medication regimen. Monitor for medication compliance and for any psychotropic medication side effects. Will continue to monitor ongoing response to treatment. Encouraged participation in milieu.
[2019-12-01] MEDS: LORazepam 1 MG TAB PO PRN (11:57)
[2019-12-01] MEDS: ARIPiprazole 15 MG TAB PO SCH (21:15)
[2019-12-02] MEDS: HALOPERIDOL 5 MG TAB PO SCH ×2 (09:40→21:47)
[2019-12-02] MEDS: NICOTINE 21MG/24HR PATCH TRANSDERM SCH (09:40)
[2019-12-02] MEDS ORDERED: cloZAPine 25 MG TAB PO SCH (10:00)
--- NOTE | 2019-12-02 14:25 | P.PN ---
Subjective Progress Note Date: 12/02/19 Principal diagnosis: Schizophrenia, gynecomastia I reviewed the medical record, interviewed the patient and discuss his treatment and treatment plan during team meeting. He was angry and minimally cooperative. He complained of sedation from his current medications. I explained the plan. We will decrease the Abilify as we increased the dose of clozapine. We'll continue the Haldol until he is on a therapeutic dose of the clozapine. Objective - Vital Signs Vital signs: Vital Signs Temp 97.7 F 12/02/19 07:02 Pulse 90 12/02/19 07:02 Resp 18 12/02/19 07:02 BP 117/84 12/02/19 07:02 Pulse Ox 96 12/02/19 07:02 - Exam He was laying in bed and would not get up for the interview. He did not make eye contact but appeared to attend to the interview. He is angry and irritable. He did not express clear paranoid thoughts or delusional beliefs. However, in the past he only gets disorganized when he is in a stressful situation. He denied auditory hallucinations and did not appear to be responding to internal stimuli. - Labs CBC & Chem 7: 11/29/19 15:12 11/29/19 15:12 Assessment and Plan Assessment: He did not respond to a therapeutic dose of Abilify. He remains paranoid and delusional. He is likely experiencing auditory hallucinations. Plan: Titrate clozapine beginning at 12.5 mg daily. Taper then discontinue Abilify. Continue Haldol 5 mg by mouth twice a day. Weekly CBC with differential. Evaluate clinical status response to treatment daily basis.
[2019-12-02] MEDS: ARIPiprazole 10 MG TAB PO SCH (21:47)
[2019-12-02] MEDS: ACETAMINOPHEN TAB 325 MG TAB PO PRN (22:53)
[2019-12-03] MEDS ORDERED: cloZAPine 25 MG TAB PO SCH (09:00)
[2019-12-03] MEDS: NICOTINE 21MG/24HR PATCH TRANSDERM SCH (09:33)
[2019-12-03] MEDS: HALOPERIDOL 5 MG TAB PO SCH ×2 (09:34→21:16)
--- NOTE | 2019-12-03 14:28 | P.PN ---
Subjective Progress Note Date: 12/03/19 Principal diagnosis: Schizophrenia, gynecomastia I reviewed the medical record, interviewed the patient and discuss his treatment and treatment plan during team meeting. He complained of feeling tired. I reviewed my plan of care. We are in the process of discontinuing Abilify. I decreased the Haldol to 2.5 mg twice per day and plan to discontinue the Haldol when we reach a dose of clozapine 100 mg twice a day. We are in the process of titrating about the clozapine. As during prior interviews he asked "are we done yet" and that stood up to leave. He began abruptly sat down and asked why I had asked him to sit down. He denied that he was having auditory hallucinations but obviously he experiences sedation while he was in my office. Objective - Vital Signs Vital signs: Vital Signs Temp 98.1 F 12/03/19 09:30 Pulse 97 12/03/19 09:30 Resp 16 12/03/19 09:30 BP 109/76 12/03/19 09:30 Pulse Ox 96 12/02/19 07:02 - Exam He was casually dressed and groomed. He appeared sedated. He walks slowly with decreased associated movements. He had a flat facial expression. His speech was spontaneous with decreased rate rhythm and volume. He ruminated about discharge. He is guarded and suspicious but did not express clear paranoid ideation or delusional thoughts. His thinking was concrete. He had poverty of content is thought. He denied hallucinations but appeared to be responding to internal stimuli. - Labs CBC & Chem 7: 11/29/19 15:12 11/29/19 15:12 Assessment and Plan Assessment: He remains guarded and suspicious. He is minimally cooperative and is denying obvious psychotic experiences. His experiences sedation that should improve as we taper her Abilify and Haldol. Plan: His current dose of Abilify is 10 mg daily and continue to taper. His current dose of clozapine is 25 mg daily and we will titrate to a target dose of 100 mg twice a day. Decrease Haldol to 2.5 mg twice a day and discontinue once reachieve a therapeutic dose of clozapine. Continue weekly CBC with differential. Monitor compliance with prescribed medications. Initiate involuntary process if he does not comply with medications or medical yamila luation. Encourage participation in therapeutic groups and activities as tolerated. Evaluate clinical status response to treatment daily basis.
[2019-12-03] MEDS: ARIPiprazole 10 MG TAB PO SCH (21:17)
[2019-12-04] MEDS: NICOTINE 21MG/24HR PATCH TRANSDERM SCH (09:09)
[2019-12-04] MEDS: HALOPERIDOL 5 MG TAB PO SCH ×2 (09:09→20:24)
[2019-12-04] MEDS: cloZAPine 25 MG TAB PO SCH ×2 (09:09→20:24)
[2019-12-04] MEDS: ARIPiprazole 10 MG TAB PO SCH (20:24)
[2019-12-04] MEDS: MAG HYDROX/AL HYDROX/SIMETH 30 ML CUP PO PRN (21:11)
[2019-12-05] MEDS: MAG HYDROX/AL HYDROX/SIMETH 30 ML CUP PO PRN (00:55)
[2019-12-05] MEDS: NICOTINE 21MG/24HR PATCH TRANSDERM SCH (09:25)
[2019-12-05] MEDS: HALOPERIDOL 5 MG TAB PO SCH (09:25)
[2019-12-05] MEDS: cloZAPine 25 MG TAB PO SCH ×3 (09:25→21:04)
--- NOTE | 2019-12-05 15:09 | P.PN ---
Subjective Progress Note Date: 12/05/19 Principal diagnosis: Schizophrenia, gynecomastia I reviewed the medical record, interviewed the patient and discuss his treatment and treatment plan during team meeting. He complained of feeling sedated but was able to attend therapeutic group this morning. The group therapist reports that he was attentive but declined to participate in the group discussion. He sat the periphery. He did not appear to be responding to internal stimuli. According to the nursing sleep log he only slept 1 hour last night. Objective - Vital Signs Vital signs: Vital Signs Temp 97.7 F 12/05/19 09:28 Pulse 105 H 12/05/19 09:28 Resp 20 12/05/19 09:28 BP 107/64 12/05/19 09:28 Pulse Ox 97 12/04/19 21:45 - Exam He appeared sedated. He was casually groomed. He was minimally cooperative. He remains guarded and suspicious. He does not appear to be responding to internal stimuli during our encounter. - Labs CBC & Chem 7: 11/29/19 15:12 11/29/19 15:12 Assessment and Plan Assessment: He is severely mentally ill remarkably improve from admission. Plan: His current dose of Abilify is 5 mg daily. Discontinue Abilify after his evening dose tomorrow. His current dose of clozapine is 25 mg 3 times a day and we will titrate to a target dose of 100 mg twice a day. Decrease Haldol to 2 mg twice a day and discontinue once reachieve a therapeutic dose of clozapine. Continue weekly CBC with differential. Monitor compliance with prescribed medications. Initiate involuntary process if he does not comply with medications or medical evaluation. Encourage participation in therapeutic groups and activities as tolerated. Evaluate clinical status response to treatment daily basis.
[2019-12-05] MEDS: HALOPERIDOL 2 MG TAB PO SCH (21:04)
[2019-12-05] MEDS: ARIPiprazole 5 MG TAB PO SCH (21:04)
[2019-12-06] MEDS: NICOTINE 21MG/24HR PATCH TRANSDERM SCH (09:26)
[2019-12-06] MEDS: cloZAPine 25 MG TAB PO SCH ×3 (09:26→20:59)
[2019-12-06] MEDS: HALOPERIDOL 2 MG TAB PO SCH ×2 (09:27→21:00)
--- NOTE | 2019-12-06 10:55 | P.PN ---
Subjective Progress Note Date: 12/04/19 Principal diagnosis: Schizophrenia, gynecomastia I reviewed the medical record, interviewed the patient and discuss his treatment and treatment plan during team meeting. He He was guarded pleasant. He came to my office for the interview. He stated that he is "doing fine". He stared from peers at time denied experiencing psychotic symptoms. He is not attending therapeutic groups and activities. He slept 6 hours last night. Objective - Vital Signs Vital signs: Vital Signs Temp 98.0 F 12/04/19 06:09 Pulse 88 12/04/19 06:09 Resp 14 12/04/19 06:09 BP 112/67 12/04/19 06:09 Pulse Ox 96 12/02/19 07:02 - Exam He appeared sedated. He is casually groomed. He is minimally cooperative. He remains guarded and suspicious. He does not appear to be responding to internal stimuli during our encounter. - Labs CBC & Chem 7: 11/29/19 15:12 11/29/19 15:12 Assessment and Plan Assessment: He remains guarded and suspicious. He is minimally cooperative and is denying obvious psychotic experiences. Plan: His current dose of Abilify is 10 mg daily and continue to taper. His current dose of clozapine is 25 mg daily and we will titrate to a target dose of 100 mg twice a day. Continue Haldol to 2.5 mg twice a day and discontinue once we achi dominique a therapeutic dose of clozapine. Continue weekly CBC with differential. Monitor compliance with prescribed medications. Initiate involuntary process if he does not comply with medications or medical evaluation. Encourage participation in therapeutic groups and activities as tolerated. Evaluate clinical status response to treatment daily basis.
--- NOTE | 2019-12-06 14:16 | P.PN ---
Subjective Progress Note Date: 12/06/19 Principal diagnosis: Schizophrenia, gynecomastia I reviewed the medical record and discussed his treatment and treatment plan during team meeting. He spent all morning in bed and came to my office for the interview in the afternoon. He complained of being sedated. I explained that that will be his last dose of Abilify and I decreased Haldol yesterday to 2 mg twice a day. He abruptly left the office was explained that it would not be discharged today. He denied experiencing auditory hallucinations. He denied experiencing thought insertion, thought broadcasting or thought control. Objective - Vital Signs Vital signs: Vital Signs Temp 98.0 F 12/06/19 06:12 Pulse 82 12/06/19 06:12 Resp 14 12/06/19 06:12 BP 116/57 12/06/19 06:12 Pulse Ox 97 12/04/19 21:45 - Exam He presented as angry and guarded 29-year-old male. He had gynecomastia.. He made eye contact and appeared to attend to interview. He showed psychomotor retardation but no abnormal movements. Speech was not spontaneous and had decreased rate and volume. He was angry but not inappropriate or inappropriately intense. He denied suicidal ideation or wishes. He did not express ideas reference or clear paranoid ideation or delusional thoughts. His thinking was concrete but his associations were coherent. He did not appear to be responding to internal stimuli. - Labs CBC & Chem 7: 11/29/19 15:12 11/29/19 15:12 Assessment and Plan Assessment: He is severely mental health and will be improved from admission. He failed a trial of Abilify. He developed gynecomastia with Invega and breast and nipple tenderness with Prolixin. In the process of titrating clozapine due to the severity of his illness and intolerance and/or Response to other antipsychotics. Plan: His last dose of Abilify is this evening. His current dose of clozapine is 25 mg 3 times a day. We will increase clozapine to 50 mg twice a day beginning 12/07/2019 then 50 mg a.m. and 100 mg at bedtime on 12/09/2019. Taper then discontinue Haldol to reduce sedation. Weekly CBC with differential. Monitor compliance with prescribed medications. Initiate involuntary process if he does not comply with medications or medical evaluation. Encourage participation in therapeutic groups and activities as tolerated. Evaluate clinical status response to treatment daily basis.
[2019-12-06] MEDS: ARIPiprazole 5 MG TAB PO SCH (20:59)
[2019-12-06] MEDS: MAG HYDROX/AL HYDROX/SIMETH 30 ML CUP PO PRN (21:01)
[2019-12-07] MEDS: NICOTINE 21MG/24HR PATCH TRANSDERM SCH (09:51)
[2019-12-07] MEDS: HALOPERIDOL 2 MG TAB PO SCH ×2 (09:52→21:54)
[2019-12-07] MEDS: cloZAPine 25 MG TAB PO SCH ×2 (09:52→21:54)
--- NOTE | 2019-12-07 11:08 | P.PN ---
Progress Note - Text Interval history: The patient is found in his room he does not wish to get up and speak in an interview room. Describes a frustrated mood. He has been placed on Clozaril as he has failed several other antipsychotics that were either ineffective or caused intolerable side effect. He indicates that he did not eat breakfast he had some difficulty sleeping last night. He ultimately states he does not wish to speak with me and concludes the session. Mental status exam: The patient is an overweight male he is lying in bed he is covered up to his neck with a blanket. Eye contact is intermittent. He has little spontaneous speech a answers some questions briefly. He is reporting no suicidal or homicidal ideation intent or plan. He demonstrates no verbal or physical aggressiveness. He demonstrates no involuntary reported of movements. He concludes the interview prematurely. Plan: The patient will continue on his current psychotropic medication. We will monitor him for safety we will encourage his full participation in the milieu. Vital signs reviewed. He requires continued psychiatric hospitalization as his medication is titrated.
[2019-12-08] MEDS: NICOTINE 21MG/24HR PATCH TRANSDERM SCH (09:26)
[2019-12-08] MEDS: cloZAPine 25 MG TAB PO SCH ×2 (09:26→20:55)
--- NOTE | 2019-12-08 11:18 | P.PN ---
Progress Note - Text Interval history: The patient is found in his room he refuses to follow me to an interview room. He indicates he feels tired due to the clozapine. He states that he no longer expressed any auditory hallucinations. He indicates that he did not eat breakfast but that is usual for him. He initiates no conversation. He describes having no thoughts of harming himself or others. Mental status exam: The patient is an overweight male he is lying in bed he is alert but makes poor eye contact he has no spontaneous speech she p rovides brief answers to questions asked. He was cooperative in a limited fashion. He reports no suicidal or homicidal ideation he is reporting no symptoms at this time he does have a known history of underreporting symptoms and lacking insight into his psychosis. Insight and judgment are currently impaired. He demonstrates no verbal or physical aggressiveness he demonstrates no signs of physical distress. He demonstrates no involuntary repetitive movements. Plan: The patient will continue on his current psychotropic medications. We will monitor him for safety. Vital signs reviewed. He requires continued psychiatric hospitalization.
[2019-12-08] MEDS: HALOPERIDOL 1 MG TAB PO SCH (20:55)
[2019-12-09] MEDS ORDERED: cloZAPine 25 MG TAB PO SCH ×3 (09:00→21:00)
[2019-12-09] MEDS: NICOTINE 21MG/24HR PATCH TRANSDERM SCH (09:29)
[2019-12-09] MEDS: HALOPERIDOL 1 MG TAB PO SCH ×2 (09:30→21:37)
--- NOTE | 2019-12-09 13:07 | P.PN ---
Subjective Progress Note Date: 12/09/19 Principal diagnosis: Schizophrenia, gynecomastia I reviewed the medical record and discussed his treatment and treatment plan during team meeting. The executive secretary social welfare and I met with him in the library. He complained of sedation from the clozapine and demanded to know when he will be discharged. He was able to focus, concentrate and attend to the interview. His paranoia did not increase in the presence of 2 staff. I explained the plan is to change the dose of the clozapine to nighttime. chore worker will arrange a telephone call with his mother in preparation for discharge. During the last telephone conversation with his mother he accuses of his mother being an impos tor. We will monitor his response to the conversation determine his overall recovery. Objective - Vital Signs Vital signs: Vital Signs Temp 98.2 F 12/09/19 07:17 Pulse 72 12/09/19 07:17 Resp 18 12/09/19 07:17 BP 123/57 12/09/19 07:17 Pulse Ox 97 12/09/19 07:17 Intake & Output 12/08/19 12/09/19 12/09/19 18:59 06:59 18:59 Weight 88.1 kg - Exam He presented as a disheveled appearing 29-year-old man who was guarded. He made eye contact and appeared to attend to the interview. He stared blankly. He volunteers little information. He was angry but the anger was not intense or inappropriate. Speech was not spontaneous and had a decrease in rate and rhythm. His thinking was concrete but goal directed. He denied hallucinations did not appear to be responding to internal stimuli. He did not appear to be experiencing ideas reference, thought insertion, thought broadcasting etc. - Labs CBC & Chem 7: 11/29/19 15:12 11/29/19 15:12 Assessment and Plan Assessment: He is severely mental health and will be improved from admission. Plan: Continue hospitalization due to severity of his psychotic disorder. Continue clozapine 150 mg at bedtime. Discontinue Haldol 12/10/2019. Weekly CBC with differential. Monitor compliance with prescribed medications. Initiate involuntary process if he does not comply with medications or medical evaluatio n. Encourage participation in therapeutic groups and activities as tolerated. If he interacts appropriately with his mother on the telephone consider discharge on 12/10/2019 or 12/11/2019. Evaluate clinical status response to treatment daily basis.
[2019-12-09] MEDS ORDERED: cloZAPine 100 MG TAB PO SCH (21:00)
[2019-12-10 06:20] VITALS: BP 104/66; PULSE 85; RESP 14; TEMP 98
[2019-12-10 07:45] LABS: Basophils % (A) 1 %; Eosinophils # (A) 0.4 k/uL (0-0.7); Eosinophils % (A) 6 %; HCT 47.5 % (39.0-53.0); HGB 16.2 gm/dL (13.0-17.5); Lymphocytes # (A) 2.3 k/uL (1.0-4.8); Lymphocytes % (A) 36 %; MCH 28.5 pg (25.0-35.0); MCHC 34.1 g/dL (31.0-37.0); MCV 83.6 fL (80.0-100.0); Mean Platelet Volume 7.5; Monocytes # (A) 0.4 k/uL (0-1.0); Monocytes % (A) 6 %; Neutrophils # (A) 3.3 k/uL (1.3-7.7); Neutrophils % (A) 51 %; Platelet Count 208 k/uL (150-450); RBC 5.68 m/uL (4.30-5.90); WBC 6.5 k/uL (3.8-10.6)
[2019-12-10] MEDS: HALOPERIDOL 1 MG TAB PO SCH (08:34)
[2019-12-10] MEDS: NICOTINE 21MG/24HR PATCH TRANSDERM SCH (08:35)
--- NOTE | 2019-12-10 13:21 | P.DS ---
Providers Date of admission: 11/16/19 23:10 Attending physician: Burt Yu MD Consults: 11/16/19 23:18 Consult Physician Routine Consulting Provider: Anjelica Physician Consult Reason/Comments: medical management Do you want consulting provider notified?: Yes Primary care physician: Stated None - Discharge Diagnosis(es) (1) Schizophrenia Current Visit: Yes Status: Chronic Priority: High (2) Drug-induced gynecomastia Current Visit: Yes Status: Chronic Priority: Low (3) Tobacco use He is not interested in smoking cessation. He declined a prescription for nicotine replacement therapy. Brief intervention provided Current Visit: Yes Status: Chronic Priority: Medium Hospital Course: He is a 28-year-old single male who has a history of a schizophrenia. He was uncooperative with the initial assessment. This is his third admission to our unit. He was last discharged in 10/11/2019 with the diagnoses schizophrenia. His discharge medications include Abilify Maintenna a 400 mg in his last injection was on 10/02/2019. He received his first and only postdischarge injection of Abilify on 10/29/2019. His clinical edition deteriorated between his first outpatient injection and is meeting with this provider on 11/12/2019 when he presented agitated confused and disorganized. He apparently express paranoid delusional beliefs and was experiencing auditory hallucinations. The provider started Prolixin 50 mg IM with plan to administer the injection weekly. We admitted him to the psychiatric unit under care of this engineering technical writer. We provided a copy a biopsychosocial assessment. The strategy planning consultant head of stock completed the initial physical examination. The patient has no history of major medical problems. His history is significant for gynecomastia secondary to treatment with Invega Sustenna. We initially continued Prolixin Decanoate 50 mg IM weekly but he complains of increasing breast and nipple tenderness. We discontinued the medication concerned that the Prolixin may be worsening the gynecomastia. We restarted him on Abilify (usual best response to Abilify) and titrated dose to 20 mg per day. He showed no improvement with the Abilify. He was guarded and suspicious throughout most of the hospitalization. He gave guarded responses to questions about psychotic symptoms. The psychosis became apparent in stressful situations or with indirect observation by staff. For example, he sometimes appears to be responding to internal stimuli and one time alleged that his mother was an impostor. We tapered and discontinued Abilify and temporarily prescribed Haldol up to 4 mg per day. We started clozapine and titrated the dose to 200 mg over a two-week period. He complained of increased sedation with clozapine but was compliant. His most recent absolute neutrophil count was 3300. He appeared less paranoid but during the predischarge telephone with his mother. However, he was irritable and after the telephone conversation alleged that the person he spoke to was not his mother. At the time of discharge she presented as a moderately obese young male with gynecomastia. He made eye contact and appeared to attend to the interview. He stared blankly during interview. He was guarded and suspicious. He had a blunted facial expression. His head psychomotor retardation but no abnormal movements. His speech was nonspontaneous had decreased rate and rhythm. He was suspicious, guarded and and irritable. He denied suicidal mayco ation, wishes or homicidal ideation. He denied feelings of hopelessness, helplessness or worthlessness. He was paranoid but did not express clear paranoid ideation or delusional thoughts during the interview. He did not express ideas reference. He was guarded did not provide much information. His thinking was concrete but his associations appeared coherent and goal directed. He did not appear to responding to internal stimuli. Patient Condition at Discharge: Serious Plan - Discharge Summary New Discharge Prescriptions: New cloZAPine [Clozaril] 200 mg PO HS #14 tab Continue Nicotine 14Mg/24Hr Patch [Habitrol] 1 patch TRANSDERM DAILY #14 patch Discontinued ARIPiprazole [Abilify] 20 mg PO DAILY #4 tab ARIPiprazole IM [Abilify Maintena] 400 mg IM Q28D #1 each Discharge Medication List Nicotine 14Mg/24Hr Patch [Habitrol] 1 patch TRANSDERM DAILY #14 patch 10/11/19 [Rx] cloZAPine [Clozaril] 200 mg PO HS #14 tab 12/10/19 [Rx] Follow up Appointment(s)/Referral(s): [facility] [Outside] - 12/17/19 10:00 am (12-17-19 @ 10:00 with [facility] [place] office) [facility] [NON-STAFF] - 1 Week Patient Instructions/Handouts: How to Stop Smoking (DC), Depression (DC), Psychotic Disorder (DC), Suicide Prevention (DC) Activity/Diet/Wound Care/Special Instructions: Activity and diet as tolerated. Avoid the use of street drugs and alcohol. Take all medications as prescribed. When you are in need of refills on your medications please contact your medical provider and/or outpatient psychiatrist to have this done. Please go to scheduled outpatient appointment for aftercare treatment. If symptoms return or become worse, call the crisis line at and/or go to the nearest emergency room for evaluation. Discharge Disposition: HOME SELF-CARE
[2019-12-10] MEDS ORDERED: cloZAPine 100 MG TAB PO SCH (21:00)
== END 2019-12-10 13:40 | disposition home or self-care (01) | DRG 885 ==
LOC: EC 21:30 → 3MHU 23:10
PROVIDERS: ADMIT Psychiatry & Neurology Psychiatry; ATTEND Psychiatry & Neurology Psychiatry
DX: F20.0 Paranoid schizophrenia (principal); Z91.128 Patient's intentional underdosing of medication regimen for other reason; Z91.19 Patient's noncompliance with other medical treatment and regimen; E66.9 Obesity, unspecified; Z68.30 Body mass index [BMI] 30.0-30.9, adult; T43.596A Underdosing of other antipsychotics and neuroleptics, initial encounter; F41.9 Anxiety disorder, unspecified; N62 Hypertrophy of breast; N64.4 Mastodynia; H53.8 Other visual disturbances; T43.3X5A Adverse effect of phenothiazine antipsychotics and neuroleptics, initial encounter; F17.200 Nicotine dependence, unspecified, uncomplicated; K21.9 Gastro-esophageal reflux disease without esophagitis; Z79.899 Other long term (current) drug therapy; Z91.5 Personal history of self-harm; Z71.3 Dietary counseling and surveillance; Z88.8 Allergy status to other drugs, medicaments and biological substances; Y92.230 Patient room in hospital as the place of occurrence of the external cause
CPT/HCPCS: 80053; 82075; 85025; 99285

== ENCOUNTER 2020-04-11 17:43 | Inpatient (IN) | payer BC, MEDICAID, OTHER ==
--- NOTE | 2020-04-11 18:22 | ED ---
General Adult HPI - General Chief complaint: Psychiatric Symptoms Stated complaint: petition Time Seen by Provider: 04/11/20 18:02 Source: patient, police, RN notes reviewed, old records reviewed Mode of arrival: ambulatory Limitations: no limitations - History of Present Illness Initial comments: 29-year-old male history of schizophrenia presents for mental health evaluation. Patient has been petitioned. He is currently off of his medication. Patient is not able to provide a detailed history of why he is here. He appears acutely psychotic and is rambling incoherently. He is paranoid stating that I am here to steal his heart. He denies any ingestion. He has been petitioned. - Related Data Home Medications Medication Instructions Recorded Confirmed cloZAPine [Clozaril] 200 mg PO HS 04/12/20 04/12/20 Allergies Allergy/AdvReac Type Severity Reaction Status Date / Time risperidone [From Risperdal] Allergy Rash/Hives Verified 04/12/20 10:48 fluphenazine [From Prolixin] AdvReac Swelling Verified 04/12/20 10:48 Review of Systems ROS Statement: Those systems with pertinent positive or pertinent negative responses have been documented in the HPI. ROS Other: All systems not noted in ROS Statement are negative. Past Medical History Past Medical History: No Reported History History of Any Multi-Drug Resistant Organisms: None Reported Past Surgical History: No Surgical Hx Reported Past Psychological History: Anxiety, Bipolar, Depression, Schizophrenia Smoking Status: Vaper Past Alcohol Use History: Occasional Past Drug Use History: None Reported General Exam Limitations: no limitations General appearance: alert, in no apparent distress Head exam: Present: atraumatic, normocephalic Eye exam: Present: normal appearance, PERRL ENT exam: Present: normal exam Neck exam: Present: normal inspection. Absent: tenderness, meningismus Respiratory exam: Present: normal lung sounds bilaterally. Absent: respiratory distress, wheezes Cardiovascular Exam: Present: regular rate, normal rhythm GI/Abdominal exam: Present: soft. Absent: distended, tenderness, guarding Extremities exam: Present: normal inspection, normal capillary refill. Absent: pedal edema Neurological exam: Present: alert Psychiatric exam: Present: manic, other (Paranoid). Absent: suicidal ideation Skin exam: Present: warm, dry, intact. Absent: cyanosis, diaphoretic Course Vital Signs 04/11/20 04/12/20 04/12/20 17:58 06:00 10:22 Temperature 98.5 F 98.2 F 98.0 F Pulse Rate 101 H 89 Pulse Rate [ 83 Right Sitting] Respiratory 18 16 18 Rate Blood Pressure 138/75 107/63 Blood Pressure 139/82 [Right Arm Sitting] O2 Sat by Pulse 97 100 Oximetry - Reevaluation(s) Reevaluation #1: 04/11/20 18:23 Patient cleared for EPS evaluation Medical Decision Making - Medical Decision Making Patient has been evaluated by EPS and will require inpatient psychiatric evaluation and treatment. Currently awaiting transfer to psychiatric facility. - Lab Data Result diagrams: 04/11/20 19:20 04/11/20 19:20 Lab Results 04/11/20 04/11/20 04/11/20 Range/Units 18:14 18:14 19:20 WBC 13.5 H (3.8-10.6) k/uL RBC 5.65 (4.30-5.90) m/uL Hgb 16.1 (13.0-17.5) gm/dL Hct 47.3 (39.0-53.0) % MCV 83.7 (80.0-100.0) fL MCH 28.5 (25.0-35.0) pg MCHC 34.0 (31.0-37.0) g/dL RDW 12.4 (11.5-15.5) % Plt Count 246 (150-450) k/uL Sodium (137-145) mmol/L Potassium (3.5-5.1) mmol/L Chloride (98-107) mmol/L Carbon Dioxide (22-30) mmol/L Anion Gap mmol/L BUN (9-20) mg/dL Creatinine (0.66-1.25) mg/dL Est GFR (CKD-EPI)AfAm (>60 ml/min/1.73 sqM) Est GFR (CKD-EPI)NonAf (>60 ml/min/1.73 sqM) Glucose (74-99) mg/dL Calcium (8.4-10.2) mg/dL Total Bilirubin (0.2-1.3) mg/dL AST (17-59) U/L ALT (4-49) U/L Alkaline Phosphatase (38-126) U/L Total Protein (6.3-8.2) g/dL Albumin (3.5-5.0) g/dL Urine Color Yellow Urine Appearance Clear (Clear) Urine pH 5.5 (5.0-8.0) Ur Specific [place] 1.008 (1.001-1.035) Urine Protein Negative (Negative) Urine Glucose (UA) Negative (Negative) Urine Ketones 1+ H (Negative) Urine Blood Trace H (Negative) Urine Nitrite Negative (Negative) Urine Bilirubin Negative (Negative) Urine Urobilinogen <2.0 (<2.0) mg/dL Ur Leukocyte Esterase Negative (Negative) Urine RBC 1 (0-5) /hpf Urine WBC 1 (0-5) /hpf Hyaline Casts 1 (0-2) /lpf Urine Mucus Rare H (None) /hpf Urine Opiates Screen Not Detected (NotDetected) Ur Oxycodone Screen Not Detected (NotDetected) Urine Methadone Screen Not Detected (NotDetected) Ur Propoxyphene Screen Not Detected (NotDetected) Ur Barbiturates Screen Not Detected (NotDetected) U Tricyclic Antidepress Not Detected (NotDetected) Ur Phencyclidine Scrn Not Detected (NotDetected) Ur Amphetamines Screen Not Detected (NotDetected) U Methamphetamines Scrn Not Detected (NotDetected) U Benzodiazepines Scrn Not Detected (NotDetected) Urine Cocaine Screen Not Detected (NotDetected) U Marijuana (THC) Screen Not Detected (NotDetected) 04/11/20 Range/Units 19:20 WBC (3.8-10.6) k/uL RBC (4.30-5.90) m/uL Hgb (13.0-17.5) gm/dL Hct (39.0-53.0) % MCV (80.0-100.0) fL MCH (25.0-35.0) pg MCHC (31.0-37.0) g/dL RDW (11.5-15.5) % Plt Count (150-450) k/uL Sodium 136 L (137-145) mmol/L Potassium 3.9 (3.5-5.1) mmol/L Chloride 100 (98-107) mmol/L Carbon Dioxide 22 (22-30) mmol/L Anion Gap 14 mmol/L BUN 16 (9-20) mg/dL Creatinine 1.02 (0.66-1.25) mg/dL Est GFR (CKD-EPI)AfAm >90 (>60 ml/min/1.73 sqM) Est GFR (CKD-EPI)NonAf >90 (>60 ml/min/1.73 sqM) Glucose 88 (74-99) mg/dL Calcium 9.6 (8.4-10.2) mg/dL Total Bilirubin 1.8 H (0.2-1.3) mg/dL AST 41 (17-59) U/L ALT 28 (4-49) U/L Alkaline Phosphatase 76 (38-126) U/L Total Protein 8.0 (6.3-8.2) g/dL Albumin 5.2 H (3.5-5.0) g/dL Urine Color Urine Appearance (Clear) Urine pH (5.0-8.0) Ur Specific [place] (1.001-1.035) Urine Protein (Negative) Urine Glucose (UA) (Negative) Urine Ketones (Negative) Urine Blood (Negative) Urine Nitrite (Negative) Urine Bilirubin (Negative) Urine Urobilinogen (<2.0) mg/dL Ur Leukocyte Esterase (Negative) Urine RBC (0-5) /hpf Urine WBC (0-5) /hpf Hyaline Casts (0-2) /lpf Urine Mucus (None) /hpf Urine Opiates Screen (NotDetected) Ur Oxycodone Screen (NotDetected) Urine Methadone Screen (NotDetected) Ur Propoxyphene Screen (NotDetected) Ur Barbiturates Screen (NotDetected) U Tricyclic Antidepress (NotDetected) Ur Phencyclidine Scrn (NotDetected) Ur Amphetamines Screen (NotDetected) U Methamphetamines Scrn (NotDetected) U Benzodiazepines Scrn (NotDetected) Urine Cocaine Screen (NotDetected) U Marijuana (THC) Screen (NotDetected) Disposition Clinical Impression: Schizophrenia, Acute psychosis, Depression Disposition: ADMITTED IP TO THIS [facility] Condition: Stable Is patient prescribed a controlled substance at d/c from ED?: No Time of Disposition: 20:25 Decision to Admit Reason: Admit from EC
[2020-04-11 18:42] LABS: Amphetamine Screen,Urine Not Detected (NotDetected); Barbiturate Screen,Urine Not Detected (NotDetected); Benzodiazepines Screen,Urine Not Detected (NotDetected); Cocaine Screen,Urine Not Detected (NotDetected); Methadone Screen, Urine Not Detected (NotDetected); Opiate Screen,Urine Not Detected (NotDetected); Oxycodone Screen, Urine Not Detected (NotDetected); Phencyclidine Screen,Urine Not Detected (NotDetected); Tricyclic Antidepressant,Urine Not Detected (NotDetected); Urn Cannabinoid Scrn Not Detected (NotDetected)
[2020-04-11 19:21] LABS: Appearance,Urine Clear (Clear); Bilirubin,Urine Negative (Negative); Blood,Urine Trace (Negative); Color,Urine Yellow; Glucose,Urine (UA) Negative (Negative); Hyaline Casts,Urine 1 /lpf (0-2); Ketones,Urine 1+ (Negative); Leukocyte Esterase,Urine Negative (Negative); Mucus,Urine Rare /hpf; Nitrite,Urine Negative (Negative); PH, Urine 5.5 (5.0-8.0); Protein,Urine Negative (Negative); RBC,Urine 1 /hpf (0-5); Specific Gravity,Urine 1.008 (1.001-1.035); Urobilinogen,Urine <2.0 mg/dL (<2.0); WBC,Urine 1 /hpf (0-5)
[2020-04-11 19:26] LABS: HCT 47.3 % (39.0-53.0); HGB 16.1 gm/dL (13.0-17.5); MCH 28.5 pg (25.0-35.0); MCV 83.7 fL (80.0-100.0); Mean Platelet Volume 7.3; Platelet Count 246 k/uL (150-450); RBC 5.65 m/uL (4.30-5.90); RDW 12.4 % (11.5-15.5); WBC 13.5 k/uL (3.8-10.6)
[2020-04-11 19:39] LABS: ALT 28 U/L (4-49); AST 41 U/L (17-59); African American GFR (CKD) >90 (>60 ml/min/1.73 sqM); Albumin 5.2 g/dL (3.5-5.0); Alkaline Phosphatase 76 U/L (38-126); Anion Gap 14 mmol/L; Blood Urea Nitrogen 16 mg/dL (9-20); Calcium 9.6 mg/dL (8.4-10.2); Carbon Dioxide 22 mmol/L (22-30); Chloride 100 mmol/L (98-107); Glucose 88 mg/dL (74-99); Non-African American GFR(CKD) >90 (>60 ml/min/1.73 sqM); Potassium 3.9 mmol/L (3.5-5.1); Sodium 136 mmol/L (137-145); Total Bilirubin 1.8 mg/dL (0.2-1.3)
[2020-04-12] MEDS: CALCIUM CARBONATE 500 MG CHEWABLE PO PRN (03:01)
[2020-04-12] MEDS ORDERED: ZIPRASIDONE 20 MG VIAL IM PRN (10:26)
[2020-04-12] MEDS ORDERED: MAGNESIUM HYDROXIDE 2,400 MG/10 ML CUP PO PRN (10:26)
[2020-04-12] MEDS: NICOTINE 14MG/24HR PATCH TRANSDERM SCH (13:22)
[2020-04-12] MEDS ORDERED: cloZAPine 100 MG TAB PO SCH (21:00)
[2020-04-12] MEDS ORDERED: cloZAPine 25 MG TAB PO SCH (21:00)
--- NOTE | 2020-04-12 21:45 | HP ---
DATE OF SERVICE: 04/12/2020 HISTORY AND PHYSICAL IDENTIFYING DATA: The patient is a 29-year-old male. He resides with his mother. He presented to the emergency room for evaluation. CHIEF COMPLAINT: The patient has a diagnosis of schizophrenia. He was petitioned by his mother due to his stopping medications and having recurrence of psychotic symptoms. HISTORY OF PRESENTING ILLNESS: The patient was the primary source of information, though he was not able to provide any information about his current circumstances. The only other information available was from the medical record, which was limited. The patient has a diagnosis of schizophrenia. He has long-term psychiatric issues. He had a psychiatric hospitalization here from October to December 09. I refer the reader to Dr. Barrientos's admit note and Dr. Yu's discharge summary for details. The patient had a previous treatment order in September and was admitted in October. Based on the previous order, he had increasing psychotic symptoms. He had just been switched from Invega Sustenna to Prolixin Decanoate. He was actively psychotic. He also was diagnosed with antipsychotic induced gynecomastia. Discharge medications included clozapine 200 mg at q.h.s. as his only psychotropic medication. The patient was seen March 10, 2020 at [facility] by his psychiatric nurse practitioner. At that appointment, he was doing fairly well. 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 He had been sleeping excessively for 12 hours or more a day. It was felt that his thinking was clear and that he was benefitting from Clozaril. He voiced no thoughts of harm. He was denying auditory hallucinations, auditory or visual hallucinations, paranoia or other delusions. He was felt to be stable on his Clozaril in that he was benefitting from the medication. Concerns were raised that if he were to go off the court order, he would be at risk for stopping his medications. The only information available regarding current circumstances is that he did go off a court order. He stopped taking medications. His mother completed a petition documented that he has been seeing things such as people and hearing voices telling him to drink. He has been making statements not in touch with reality. He has not been able to follow through normal routines. His only psychotropic medication is Clozaril 200 mg a day. He is admitted for further evaluation. SUBSTANCE USE HISTORY: Uncertain. Urine drug screen negative. PAST MEDICAL HISTORY: No reported chronic or current general health complaints. FAMILY AND SOCIAL HISTORY: The only information available is from his previous admit note of November 17, 2019. MENTAL STATUS EXAM: Patient gave fair eye contact at best. He was restless. He responded to questions. Mostly he made tangential statements. He talked about how there was false documentation about him in regard to the petition for involuntary hospitalization. He at times made random and disconnected statements. For the most part, he provided no reliable information about his current situation. His affect was intense. His mood dysphoric. He was significantly distressed. He was making apparent delusional statements. It is documented he responds to internal stimuli. He provided no reliable information in regards to risks of harm to self or others. He was aware of current circumstances, though did not make an effort to respond to any cognitive questions. PHYSICAL EXAM: As per medical consultation. ASSESSMENT: This 29-year-old male is admitted for schizophrenia with acute exacerbation secondary to medication noncompliance. He had been on a treatment order which apparently some time in early February which precipitated his down turn including not taking medications and then becoming actively psychotic. STRENGTHS: Include his support system, especially when he is under treatment order. WEAKNESSES: Includes relapse to psychosis. DIAGNOSES: Schizophrenia with acute exacerbation secondary to medication noncompliance. RECOMMENDATIONS: Patient will be admitted for comprehensive medical psychiatric and psychosocial evaluation. We will engage the patient in individual and group therapeutic activities. I will restart the patient on Clozaril. Given that it is unclear how many days he has been off Clozaril, I will do a modified titration I will initiate 50 mg a day on day 1, then increase to 100 mg on day 2, 150 mg on day 3 and then 200 mg a day on day four. We will coordinate with [facility] in regard to treatment and discharge planning. It does sound as if the retirement court order for treatment is indicated given his history and difficulty with medication compliance. We will focus on stabilization and discharge planning. ORAL / MARCUS: [id number] / MTDD
[2020-04-13 06:34] LABS: ALT 24 U/L (4-49); AST 33 U/L (17-59); African American GFR (CKD) >90 (>60 ml/min/1.73 sqM); Alkaline Phosphatase 60 U/L (38-126); Anion Gap 7 mmol/L; Blood Urea Nitrogen 15 mg/dL (9-20); Calcium 8.9 mg/dL (8.4-10.2); Carbon Dioxide 25 mmol/L (22-30); Chloride 107 mmol/L (98-107); Cholesterol 146 mg/dL (<200); Glucose 87 mg/dL (74-99); HDL Cholesterol 40 mg/dL (40-60); LDL Cholesterol,Calculated 88 mg/dL (0-99); Non-African American GFR(CKD) >90 (>60 ml/min/1.73 sqM); Potassium 3.8 mmol/L (3.5-5.1); Sodium 139 mmol/L (137-145); Total Bilirubin 0.8 mg/dL (0.2-1.3); Total Protein 6.5 g/dL (6.3-8.2); Triglycerides 90 mg/dL (<150)
[2020-04-13] MEDS: NICOTINE 14MG/24HR PATCH TRANSDERM SCH (09:19)
[2020-04-13 12:00] LABS: Hemoglobin A1C 4.5 % (4.0-6.0)
--- NOTE | 2020-04-13 13:04 | P.HPMEDMHU ---
History of Present Illness H&P Date: 04/13/20 Chief Complaint: psychosis Patient is a 29 yo CM with a hx of who was brought in on a pick-up order due to paranoia he has been admitted to the mental health unit and we are asked to evaluate him for medical H and P. Patient seen and examined with nursing present. Initially went into the room as to what is wrong and he states he cannot get up. When asked why he states is because he is so tired. He then goes on thinking that he is much older than age 29, he states that he thinks his ankles are broken and, he also was worried it was placing things on him when he touched his face, and that I was going to steal his heart when I went to listen to it. He is unable to participate in meaningful history gathering secondary to his diffuse paranoia and psychosis. Thorough review of records was completed at the time of this history and physical including EPS assessment, ER visit, and psychiatry assessment from this admission. Medical information was also reviewed from hospitalization in September 2019, and in December 2018. Review of Systems unable to full attain due to paranoia Past Medical History Past Medical History: No Reported History History of Any Multi-Drug Resistant Organisms: None Reported Past Surgical History: No Surgical Hx Reported Past Psychological History: Anxiety, Bipolar, Depression, Schizophrenia Smoking Status: Vaper Past Alcohol Use History: Occasional Past Drug Use History: None Reported Medications and Allergies Home Medications Medication Instructions Recorded Confirmed Type cloZAPine [Clozaril] 200 mg PO HS 04/12/20 04/12/20 History Allergies Allergy/AdvReac Type Severity Reaction Status Date / Time risperidone [From Risperdal] Allergy Rash/Hives Verified 04/12/20 10:48 fluphenazine [From Prolixin] AdvReac Swelling Verified 04/12/20 10:48 Physical Exam Osteopathic Statement: *. No significant issues noted on an osteopathic structural exam other than those noted in the History and Physical/Consult. Vitals: Vital Signs Temp Pulse Resp BP Pulse Ox 04/13/20 06:41 98.3 F 62 14 106/54 98 04/12/20 19:13 97.8 F General: non toxic, no distress, appears at stated age, normal weight Derm: warm, dry Head: atraumatic, normocephalic, symmetric Eyes: EOMI, no lid lag, anicteric sclera, pupils equal round reactive to light ENT: Nose and ears atraumatic, no thrush Neck: No thyromegaly, no cervical lymphadenopathy, trachea midline, supple Mouth: no lip lesion, mucus membranes moist Cardiovascular: S1S2 reg, no murmur, positive posterior tibial pulse bilateral, no edema, capillary refill less than 2 seconds Lungs: CTA bilateral, no wheeze , no accessory muscle use Abdominal: soft, nontender to palpation, no guarding, no appreciable organomegaly, normal bowel sounds Ext: no gross muscle atrophy, moving all 4 extremities independently. Neuro: CN II-XI grossly intact, light touch intact all 4 extremities, finger to nose within normal limits, Psych: awake, confused, does not know his age Cranial Nerve Examination - Cranial Nerves Cranial Nerve II- Optic: Intact Cranial Nerve III- Oculomotor: Intact Cranial Nerve IV- Trochlear: Intact Cranial Nerve V- Trigeminal: Intact Cranial Nerve - Abducens: Intact Cranial Nerve VII- Facial: Intact Cranial Nerve VIII- Auditory: Intact Cranial Nerve IX- Glossopharyngeal: Intact Cranial Nerve X- Vagus: Intact Cranial Nerve XI- Accessory: Intact Cranial Nerve XII- Hypoglossal: Intact Results CBC & Chem 7: 04/11/20 19:20 04/13/20 05:53 Thrombosis Risk Factor Assmnt - DVT/VTE Prophylaxis DVT/VTE Prophylaxis: Low risk, early ambulation encouraged Assessment and Plan Assessment: Leukocytosis - suspect reactive - repeat in AM Probable tobacco abuse - confirm once more awake psychosis - your psych management Thank you for allowing us to participate in the care of this pleasant patient. Do not hesitate to contact us with questions. Someone can be reached from the [facility] hospitalist group all hours of the day at [phone] or via [employer].
--- NOTE | 2020-04-13 15:28 | P.PN ---
Progress Note - Text Progress Note Date: 04/13/20 Clinical Problems: Schizophrenia, poor compliance with mental health treatment, gynecomastia Interim history: I reviewed the medical record, attempted to interview the patient and discussed his treatment and treatment plan during team meeting. He presented to [facility] involuntarily, His mother obtained a court order for examination andcompleted the petition. According to the [facility] liaison he was compliant with medication and following through with recommended treatment and appointments until his treatment order . After treatment order he stopped taking this medication and did not follow through with his appointments. He became more paranoid and disorganized. According to the EPS notes he was afraid that people including his mother were drugging him or out to "get him". Prior to admission he left his mother's home and was living in his car. He would not get out of bed for the interview. He would not make eye contact. Mental status exam: He presented as a disheveled appearing 29-year-old male who is laying in bed. He would not make eye contact or answer questions. Assessment: He has a history of a schizophrenia treated with clozapine. He will only take medication while he is on a treatment order. Once treatment order he stopped clozapine and would not keep his community mental health appointments. His overall" as declined any presented markedly psychotic, paranoid and disorganized. Plan: Continue inpatient. Probate hearing pending. Restart clozapine. Weekly CBC with differential. personnel worker to coordinate discharge and aftercare. Encourage participation in therapeutic groups and activities. Evaluate clinical status and response to treatment daily basis.
[2020-04-13] MEDS ORDERED: cloZAPine 100 MG TAB PO SCH (21:00)
[2020-04-14] MEDS: NICOTINE 14MG/24HR PATCH TRANSDERM SCH (09:36)
--- NOTE | 2020-04-14 13:24 | P.PN ---
Progress Note - Text Progress Note Date: 04/14/20 Clinical Problems: Schizophrenia, poor compliance with mental health treatment, gynecomastia Interim history: I reviewed the medical record, attempted to interview the patient and discussed his treatment and treatment plan during team meeting. He would not get out of bed for the interview. He mumbled responses to questions. He has been compliant with the clozapine. Mental status exam: He presented as a disheveled appearing 29-year-old male who is laying in bed. He would not make eye contact. His speech was garbled and difficult to understand. In the afternoon he was pacing the hallway but would not respond to greetings or make eye contact. Assessment: He is less withdrawn but remains paranoid and uncooperative with the exception of prescription medications. Plan: Continue inpatient. Probate hearing pending. Continue clozapine titration with a target of 200 mg daily. Weekly CBC with differential. corrections caseworker to coordinate discharge and aftercare. Encourage participation in therapeutic groups and activities. Evaluate clinical status and response to treatment daily basis.
[2020-04-14 16:19] LABS: Clozapine (Clozaril) <25 ng/mL (200-700); Norclozapine <25 ng/mL (200-700)
[2020-04-14] MEDS ORDERED: cloZAPine 100 MG TAB PO SCH (21:00)
[2020-04-15] MEDS: NICOTINE 14MG/24HR PATCH TRANSDERM SCH (09:20)
--- NOTE | 2020-04-15 12:42 | P.PN ---
Progress Note - Text Progress Note Date: 04/15/20 Clinical Problems: Schizophrenia, poor compliance with mental health treatment, gynecomastia Interim history: I reviewed the medical record, attempted to interview the patient and discussed his treatment and treatment plan during team meeting. He would not get out of bed for the interview. He mumbled responses to questions. His only concern appeared to be his admission status because he asked if he is "going to court." He denied that he feels paranoid her that he is experiencing auditory hallucinations. He has been compliant with the clozapine. He attended one therapeutic groups yesterday. He does not interact with staff or peers. He spends most of his time in bed alone. He slept 7 hours last night. He refused blood draw for the CBC with differential this morning Mental status exam: He presented as a disheveled appearing 29-year-old male who is laying in bed. He would not make eye contact. His speech was garbled and difficult to understand. He appeared guarded and suspicious. However, he did not appear to be responding to internal stimuli. Assessment: He remains withdrawn, suspicious and guarded. She avoids social contact and seldom interacts with staff or peers Plan: Continue inpatient. Probate hearing pending. Refer the CBC. Continue clozapine titration with a target of 200 mg daily. Weekly CBC with differential. Encourage participation in therapeutic groups and activities. Evaluate clinical status and response to treatment daily basis.
[2020-04-15] MEDS: cloZAPine 100 MG TAB PO SCH (22:03)
[2020-04-16] MEDS: NICOTINE 14MG/24HR PATCH TRANSDERM SCH (09:05)
--- NOTE | 2020-04-16 13:32 | P.PN ---
Progress Note - Text Progress Note Date: 04/16/20 Clinical Problems: Schizophrenia, poor compliance with mental health treatment, gynecomastia Interim history: I reviewed the medical record, attempted to interview the patient and discussed his treatment and treatment plan during team meeting. He would not get out of bed for the interview. He mumbled responses to questions. He spends most of his time in bed moving out for medications and meals. He attended 3 therapeutic groups yesterday. He brings compliant with medications but refused to have a blood draw for CBC again. Mental status exam: He presented as a disheveled appearing 29-year-old male who is laying in bed. He would not make eye contact. His speech was garbled and difficult to understand. He appeared guarded and suspicious. However, he did not appear to be responding to internal stimuli. Assessment: He remains withdrawn, suspicious and guarded. She avoids social contact and seldom interacts with staff or peers Plan: Continue inpatient. Probate hearing pending. Continue clozapine titration with a target of 200 mg daily. If he refuses the draw tomorrow we will discontinue clozapine. Encourage participation in therapeutic groups and activities. Evaluate clinical status and response to treatment daily basis.
[2020-04-17] MEDS: cloZAPine 100 MG TAB PO SCH (00:49)
[2020-04-17] MEDS: NICOTINE 14MG/24HR PATCH TRANSDERM SCH (09:28)
--- NOTE | 2020-04-17 11:11 | P.PN ---
Progress Note - Text Progress Note Date: 04/17/20 Clinical Problems: Schizophrenia, poor compliance with mental health treatment, gynecomastia Interim history: I reviewed the medical record, attempted to interview the patient and discussed his treatment and treatment plan during team meeting. He refused to get out of bed for the interview. He again refused the blood draw for a CBC. I explained that without the blood draw we cannot continue clozapine. He replied that he will not do anything unless she is on a court order. He avoids social contact, does not participate in therapeutic groups and activities and seldom interacts with staff or peers Mental status exam: He presented as a disheveled appearing 29-year-old male who is laying in bed. He would not make eye contact. His speech was garbled and difficult to understand. He appeared guarded and suspicious. However, he did not appear to be responding to internal stimuli. Assessment: He remains withdrawn, suspicious and guarded. Plan: Continue inpatient. Probate hearing pending. Discontinue clozapine. l Encourage participation in therapeutic groups and activities. Evaluate clinical status and response to treatment daily basis.
[2020-04-18] MEDS: NICOTINE 14MG/24HR PATCH TRANSDERM SCH (08:32)
--- NOTE | 2020-04-18 10:29 | P.PN ---
Progress Note - Text Progress Note Date: 04/18/20 Clinical Problems: Schizophrenia, poor compliance with mental health treatment, gynecomastia Interim history: I reviewed the medical record and attempted to interview the patient. He refused to get out of bed for the interview. He would not answer questions and did not volunteer information. I explained that we discontinued clozapine because she refused to have a blood draw. He avoids social contact, does not participate in therapeutic groups and activities and seldom interacts with staff or peers. He slept 5 hours last night Mental status exam: He presented as a disheveled appearing 29-year-old male who is laying in bed. He would not make eye contact. His speech was ga rbled and difficult to understand. He appeared guarded and suspicious. He did not appear to be responding to internal stimuli. Assessment: He is severely mentally ill and unchanged from admission. Plan: Continue inpatient. Probate hearing pending. Discontinue clozapine. Ativan 1 mg by mouth 3 times a day when necessary for agitation or anxiety and Geodon 20 mg IM twice a day for agitation acute psychosis. Encourage participation in therapeutic groups and activities. Evaluate clinical status and response to treatment daily basis.
[2020-04-18] MEDS: ACETAMINOPHEN TAB 325 MG TAB PO PRN (13:07)
[2020-04-19] MEDS: NICOTINE 14MG/24HR PATCH TRANSDERM SCH (08:26)
--- NOTE | 2020-04-19 12:38 | P.PN ---
Progress Note - Text Progress Note Date: 04/19/20 Clinical Problems: Schizophrenia, poor compliance with mental health treatment, gynecomastia Interim history: I reviewed the medical record and attempted to interview the patient. He refused to get out of bed for the interview. He would not answer questions and did not volunteer information. We discontinued clozapine because she refused the blood draws and would not consent to an antipsychotic medication He avoids social contact, does not participate in therapeutic groups and activities and seldom interacts with staff or peers. He slept 5 hours last night Mental status exam: He presented as a disheveled appearing 29-year-old male who is laying in bed. He would not make eye contact. His speech was garbled and difficult to understand. He appeared guarded and suspicious. He did not appear to be responding to internal stimuli. Assessment: He is severely mentally ill and unchanged from admission. Plan: Continue inpatient. Probate hearing pending. Begin Haldol after the probate hearing and transition to Haldol Decanoate. Ativan 1 mg by mouth 3 times a day when necessary for agitation or anxiety and Geodon 20 mg IM twice a day for agitation acute psychosis. Encourage participation in therapeutic groups and activities. Evaluate clinical status and response to treatment daily basis.
[2020-04-20] MEDS: NICOTINE 14MG/24HR PATCH TRANSDERM SCH (08:39)
--- NOTE | 2020-04-20 14:01 | P.PN ---
Progress Note - Text Progress Note Date: 04/20/20 I did review medical records ,I discussed case in team meeting ,I tried to interview patient as he was laying in bed however he refused and tried to cover his face with bed sheet Patient does not participate in any therapeutic activities TODAY VITALS: P:68,R:14,BP:86/51 Interim history: According to team patient was stable on Clozapine and compliant with blood work up when he was on court ordered. After treatment order he stopped taking this medication and did not follow through with his appointments. He became paranoid and disorganized. According to admission note he was experiencing persecutory delusion . Prior to admission he left his mother's home and was living in his car due to his paranoia and suspicious feeling even towards his mother He would not get out of bed for the interview. He would not make eye contact. Mental status exam: He presented as a disheveled appearing 29-year-old male who is laying in bed. He would not make eye contact or answer questions. Clinical Problems: Schizophrenia, poor compliance with treatment Plan: Continue inpatient. Probate hearing pending. Clozapine was discontinued after was restarted in hospital as patient was not compliant with blood work up ,waiting to get court ordered for treatment as patient resistant to any psychotropic medications cattle care worker to coordinate discharge and aftercare. Encourage participation in therapeutic groups and activities. .
[2020-04-20] MEDS: MAG HYDROX/AL HYDROX/SIMETH 30 ML CUP PO PRN (14:49)
[2020-04-21] MEDS: MAG HYDROX/AL HYDROX/SIMETH 30 ML CUP PO PRN ×2 (00:41→17:23)
[2020-04-21] MEDS: NICOTINE 14MG/24HR PATCH TRANSDERM SCH (08:37)
--- NOTE | 2020-04-21 12:40 | P.PN ---
Progress Note - Text Progress Note Date: 04/21/20 I did review medical records ,I discussed case in team meeting ,I did interview patient as he was walking in [place] and agreed to follow me to office TODAY VITALS: P:75,R:16,BP:105/70 According to RN note patient slept 5 hours ,no behavior issue Interim history: Patient was cooperative ,was laughing inappropriate,reports lot of bizarre and grandiose delusional thinking "I was travelling a lot from 2013 till 2019: I went to [place] and [place]",he talked about petition filled by his mother saying "She lied because she want to file for guardianship and take my SS check ",stated that he has been staying with his paternal uncle for last 4 weeks ,reports paranoia and persecutory delusion "[facility] took my kids ,I do not want any stranger in my house "he was very disorganized and bizarre ,I tried talking with him about psychotropic medications ,he replied "I do not want these meds made me mentally incompetent",according o him he was functioning for 3-4 years on Invega ,Adderall and Ativan Patient was talking about "being on vacation here till 04/29" Mental status exam: patient was dressed in street cloth ,cooperative ,good eyes contact ,speech is spontaneous ,rambling,loose of association ,inappropriate laughing ,denies any hallucinations but seems responding to internal stimuli, r eports mixed delusional thinking,denies any suicidal or homicidal ideation ,no insight to his illness and need to be on medications Clinical Problems: Schizophrenia rule out schizoaffective ,bipolar type poor compliance with treatment Plan: Continue inpatient. Probate hearing 04/29 ,I filled PC requesting combination for inpatient and outpatient as patient resistant to any psychotropic medications ceramic worker to coordinate discharge and aftercare. Encourage participation in therapeutic groups and activities.
[2020-04-21] MEDS: LORazepam 1 MG TAB PO PRN (17:23)
--- NOTE | 2020-04-22 10:33 | P.PN ---
Progress Note - Text Progress Note Date: 04/22/20 I did review medical records ,I discussed case in team meeting ,I tried to interview patient as he was laying in bed however he refused and tried to cover his face with bed sheet Patient does not participate in any therapeutic activities Interim history: According to team patient was stable on Clozapine and compliant with blood work up when he was on court ordered. After treatment order he stopped taking this medication and did not follow through with his appointments. He became paranoid and disorganized. According to admission note he was experiencing persecutory delusion . Prior to admission he left his mother's home and was living in his car due to his paranoia and suspicious feeling even towards his mother He would not get out of bed for the interview. He would not make eye contact. Mental status exam: He presented as a disheveled appearing 29-year-old male who is laying in bed. He would not make eye contact or answer questions. Clinical Problems: Schizophrenia, poor compliance with treatment Plan: Continue inpatient. Probate hearing on April 29 ,PRN Cherelle for agitation ,waiting to get court ordered for treatment as patient resistant to any psychotropic medications die lay out worker to coordinate discharge and aftercare. Encourage participation in therapeutic groups and activities.
[2020-04-22] MEDS: NICOTINE 14MG/24HR PATCH TRANSDERM SCH (10:37)
--- NOTE | 2020-04-23 09:06 | P.PN ---
Progress Note - Text Progress Note Date: 04/23/20 I did review medical records ,I discussed case in team meeting ,I tried to interview patient as he was laying in bed however he refused and tried to cover his face with bed sheet TODAY VITALS:Temp:98.1,pulse:16,BP:114/59 According to RN note :patient slept only 2 hours last night and had difficulty falling asleep No behavioral issues Interim history: According to team patient was stable on Clozapine and compliant with blood work up when he was on court ordered. After treatment order he stopped taking this medication and did not follow through with his appointments. He became paranoid and disorganized. According to admission note he was experiencing persecutory delusion . Prior to admission he left his mother's home and was living in his car due to his paranoia and suspicious feeling even towards his mother He would not get out of bed for the interview. He would not make eye contact. Mental status exam: He presented as a disheveled appearing 29-year-old male who is laying in bed. He would not make eye contact or answer questions. Clinical Problems: Schizophrenia, poor compliance with treatment Plan: Continue inpatient. Probate hearing on April 29 ,PRN Cherelle for agitation ,waiting to get court ordered for treatment as patient resistant to any psychotropic medications foster care worker to coordinate discharge and aftercare. Encourage participation in therapeutic groups and activities.
[2020-04-23] MEDS: NICOTINE 14MG/24HR PATCH TRANSDERM SCH ×2 (09:46→10:10)
[2020-04-23] MEDS: MAG HYDROX/AL HYDROX/SIMETH 30 ML CUP PO PRN (14:07)
[2020-04-24] MEDS: NICOTINE 14MG/24HR PATCH TRANSDERM SCH (08:54)
[2020-04-24] MEDS: MAG HYDROX/AL HYDROX/SIMETH 30 ML CUP PO PRN (12:16)
--- NOTE | 2020-04-24 12:17 | P.PN ---
Progress Note - Text Progress Note Date: 04/24/20 I did review medical records ,I discussed case in team meeting ,I tried to interview patient as he was laying in bed however he refused and tried to cover his face with bed sheet TODAY VITALS:patient refused to have his vitals Slept 6 hours No behavioral issues Did attend one group but was laughing inappropriate,whispering and mumbling to self Interim history: According to team patient was stable on Clozapine and compliant with blood work up when he was on court ordered. After treatment order he stopped taking this medication and did not follow through with his appointments. He became paranoid and disorganized. According to admission note he was experiencing persecutory delusion . Prior to admission he left his mother's home and was living in his car due to his paranoia and suspicious feeling even towards his mother He would not get out of bed for the interview. He would not make eye contact. Mental status exam: He presented as a disheveled appearing 29-year-old male who is laying in bed. He would not make eye contact or answer questions. Clinical Problems: Schizophrenia, poor compliance with treatment Plan: Continue inpatient. Probate hearing on April 29 ,PRN Cherelle for agitation ,waiting to get court ordered for treatment as patient resistant to any psychotropic medications molding utility worker to coordinate discharge and aftercare. Encourage participation in therapeutic groups and activities.
[2020-04-24] MEDS: CALCIUM CARBONATE 500 MG CHEWABLE PO PRN (16:50)
[2020-04-25] MEDS: NICOTINE 14MG/24HR PATCH TRANSDERM SCH (08:31)
--- NOTE | 2020-04-25 09:32 | P.PN ---
Progress Note - Text Progress Note Date: 04/25/20 Interval history: Patient was seen lying down in his bed today and was directable and agreeable to speak with writer producer. Patient appeared to be tired and unwilling to cooperate with the writer producer for the most part. Patient answered a few questions from writer producer today and refuse to get out of his bed. He denied any overnight complaints and states that he sleeping well. He states that "I don't have to take medications right now until court". He has not been on any medications. He claims that he has been going to some groups. He states that his mood is "fine" as it has a constricted affect. At this time patient denies any suicidal or homicidal ideations intent or plan. Denies any Auditory or visual hallucinations. Patient denies any side effects from the medications and has been compliant with meds. Mental status exam: General Appearance: Patient appears to be stated age is alert, difficult to redirect and has poor hygiene and grooming. Behavior: No agitated behavior. Patient is calm and directable Speech: Patient's speech is fluent and nonpressured. Mood/Affect: Mood is "okay", affect is congruent and constricted. Suicidality/Homicidality: Patient denies having any suicidal or homicidal ideation intent or plan. Perceptions: Patient denies any auditory or visual hallucinations. Though content/process: There is no evidence of any delusional thought content and thought process is linear and goal-directed. [place], poverty of content. Memory and concentration: AOX3, grossly intact for the purposes of this session Judgment and insight: Poor Assessment/Plan: Continue with current diagnosis. Patient continues to meet criteria for inpatient psychiatric admission for symptom stabilization and safety.Patient will be maintained on current medication regimen and is currently awaiting court hearing. Monitor for medication compliance and for any psychotropic medication side effects. Will continue to monitor ongoing response to treatment. Encouraged participation in milieu.
[2020-04-26] MEDS: PANTOPRAZOLE 40 MG TABLET PO SCH (07:32)
[2020-04-26] MEDS: NICOTINE 14MG/24HR PATCH TRANSDERM SCH (07:33)
--- NOTE | 2020-04-26 09:49 | P.PN ---
Progress Note - Text Progress Note Date: 04/26/20 Interval history: Patient was seen lying down in his bed today and was directable and agreeable to speak with medical technical writer. Patient appeared to be suspicious of medical technical writer and mildly paranoid. Patient claims that he does not want to leave the bed this morning to speak with medical technical writer in the office. He answered questions however had some thought blocking at times. He denied any overnight complaints and states that he slept okay. He continues to state that he does not want to take medications and will be waiting for court. He has not been on any medications. He claims that he has been going to some groups. He states that his mood is "ok" as it has a constricted affect. At this time patient denies any suicidal or homicidal ideations intent or plan. Denies any Auditory or visual hallucinations. Patient denies any side effects from the medications and has been compliant with meds. Mental status exam: General Appearance: Patient appears to be stated age is alert, difficult to redirect and has poor hygiene and grooming. Behavior: No agitated behavior. Patient is calm and directable Speech: Patient's speech is fluent and nonpressured. Mood/Affect: Mood is "ok", affect is congruent and constricted. Suicidality/Homicidality: Patient denies having any suicidal or homicidal ideation intent or plan. Perceptions: Patient denies any auditory or visual hallucinations. Though content/process: There is no evidence of any delusional thought content and thought process is linear and goal-directed. [place], poverty of content. Memory and concentration: AOX3, grossly intact for the purposes of this session Judgment and insight: Poor Assessment/Plan: Continue with current diagnosis. Patient continues to meet criteria for inpatient psychiatric admission for symptom stabilization and safety.Patient will be maintained on current medication regimen and is currently awaiting court hearing. Monitor for medication compliance and for any psychotropic medication side effects. Will continue to monitor ongoing response to treatment. Encouraged participation in milieu.
[2020-04-27] MEDS: NICOTINE 14MG/24HR PATCH TRANSDERM SCH (08:36)
[2020-04-27] MEDS: PANTOPRAZOLE 40 MG TABLET PO SCH (08:36)
--- NOTE | 2020-04-27 13:32 | P.PN ---
Progress Note - Text Progress Note Date: 04/27/20 I did review medical records ,I discussed case in team meeting ,I did interview patient who came to office with court papers asking me that he wants to go court on 04/29 Interim history:patient mother is filing for guardianship,patient is paranoia ,suspicious ,irritable ,halting and blocking ,stated that he will not take Clozaril as it was making him sedated most of day and he did not like lab work up. He talked about his right to present himself in front of excel analyst "because I am not mentally ill" He avoids social contact, does not participate in therapeutic groups and activities and seldom interacts with staff or peers Mental status exam: patient was dressed in street cloth ,guarded ,evasive ,good eyes contact ,speech is non spontaneous ,rambling,loose of association ,inappropriate laughing ,denies any hallucinations but seems responding to internal stimuli, reports mixed delusional thinking,denies any suicidal or homicidal ideation ,no insight to his illness and need to be on medications Clinical Problems: Schizophrenia rule out schizoaffective ,bipolar type poor compliance with treatment Plan: Continue inpatient. Probate hearing 04/29 ,requesting combination for inpatient and outpatient as patient resistant to any psychotropic medications social worker aide to coordinate discharge and aftercare. Encourage participation in therapeutic groups and activities. Continue PRN Geodon and Ativan for agitation and paranoia
[2020-04-28] MEDS: PANTOPRAZOLE 40 MG TABLET PO SCH (08:58)
[2020-04-28] MEDS: NICOTINE 14MG/24HR PATCH TRANSDERM SCH (08:58)
[2020-04-28] MEDS ORDERED: ALPRAZolam 0.25 MG TAB PO STA (10:34)
--- NOTE | 2020-04-28 11:30 | P.PN ---
Progress Note - Text Progress Note Date: 04/28/20 I did review medical records ,I discussed case in team meeting ,I did interview patient who followed me to office Interim history:patient was walking in [place] and agreed to follow me to office,he was delusional ,paranoia , asking me to testify on his behalf that he is mentally competent and able to be his own guardian,claimed that everyone in his family stealing his SS income,,kept saying "I do not need medication you have to testify saying this in front of rv mechanic",stating that his mother had back surgery and need someone home to help her to recover,,was irritable saying "why everyone playing games with my life" He avoids social contact, does not participate in therapeutic groups and a ctivities Mental status exam: patient was dressed in hospital gown ,guarded ,evasive ,staring look,speech is spontaneous ,rambling,loose of association ,inappropriate laughing ,denies any hallucinations but seems responding to internal stimuli, reports mixed delusional thinking,denies any suicidal or homicidal ideation ,no insight to his illness and need to be on medications Clinical Problems: Schizophrenia rule out schizoaffective ,bipolar type poor compliance with treatment Plan: Continue inpatient. Probate hearing 04/29 ,requesting combination for inpatient and outpatient as patient resistant to any psychotropic medications Will consider long acting anti-psychotic as he is resistant to medication can worker to coordinate discharge and aftercare. Encourage participation in therapeutic groups and activities. Continue PRN Geodon and Ativan for agitation and paranoia
[2020-04-29] MEDS: NICOTINE 14MG/24HR PATCH TRANSDERM SCH (09:04)
[2020-04-29] MEDS: PANTOPRAZOLE 40 MG TABLET PO SCH (09:04)
[2020-04-29] MEDS ORDERED: PALIPERIDONE IM 234 MG/1.5 ML SYG IM STA (12:11)
--- NOTE | 2020-04-29 12:11 | P.PN ---
Progress Note - Text Progress Note Date: 04/29/20 I did review medical records ,I discussed case in team meeting ,I tried to interview patient as he was walking in [place] but he refused . Probate court hearing held at 11 AM ,mother and mortgage loan underwriter did testify Patient does not participate in any therapeutic activities Interim history:Patient was angry during hearing stating that he does not need any medication because "All are lying",he stated that he was treated for mental illness 8 years ago but now "I am stable and competent to be my own guardian" Endorses persecutory delusion ,paranoia and suspicious ,no insight to his illness Mental status exam: patient was dressed in his cloth ,guarded ,evasive ,staring look walking in [place] back and forth ,mumbling and talking to himself ,irritable and angry ,refused to come to office for interview Clinical Problems: Schizophrenia, poor compliance with treatment Plan: Continue inpatient. Court ordered for inpatient and outpatient ,start Invega 6 mg HS and Invega injection ,monitor side-effect and tolerance ,PRN Ativan and Geodon for agitation ,encourage participation in milieu,SW on board for post-discharge plan .
[2020-04-29] MEDS: PALIPERIDONE 6 MG TAB.ER.24 PO SCH (12:30)
--- NOTE | 2020-04-30 08:26 | P.PN ---
Progress Note - Text Progress Note Date: 04/30/20 I did review medical records ,I discussed case in team meeting ,I did interview patient as he was walking in [place] and agreed to follow me to office Probate hearing was yesterday ,court ordered combination of inpatient and outpatient ,court ordered treatment till 10/2020 Mother was appointed as guardian TODAY VITALS:Temp:98.6,P:80,R:16,BP:118/59 According to RN note patient slept 6 hours ,minimal participation in groups Interim history: Patient was guarded ,evasive ,upset about outcome of probate court ,halting and blocking,does feel that everyone is against him ,was tearful when I talked about treatment court order "I will follow but I am not mentally sick",withdrawn no interaction with peers ,walking [place] mumbling to himself,seems preoccupied ,resistant to try to participate in milieu Mental status exam: patient was dressed in street cloth ,starring look ,speech is non spontaneous ,rambling,loose of association ,at times he was tearful ,denies any hallucinations but seems responding to internal stimuli, persecutory delusion denies any suicidal or homicidal ideation ,no insight to his illness and need to be on medications Clinical Problems: Schizophrenia rule out schizoaffective ,bipolar type poor compliance with treatment Plan: Continue inpatient. Patient received Invega 234 mg IM on 04/29 ,boost dose of 156 mg will be given on 05.06,continue oral Invega 6 mg AM. Encourage participation in therapeutic groups and activities. Monitor any side-effect from medications .Evaluate clinical status and response to treatment daily basis.
[2020-04-30] MEDS: PALIPERIDONE 6 MG TAB.ER.24 PO SCH (10:02)
[2020-04-30] MEDS: NICOTINE 14MG/24HR PATCH TRANSDERM SCH (10:03)
[2020-04-30] MEDS: PANTOPRAZOLE 40 MG TABLET PO SCH ×2 (10:03→16:10)
[2020-04-30 12:49] VITALS: BMI 26.4
[2020-04-30] MEDS: MAG HYDROX/AL HYDROX/SIMETH 30 ML CUP PO PRN (16:11)
--- NOTE | 2020-05-01 08:38 | P.PN ---
Progress Note - Text Progress Note Date: 05/01/20 I did review medical records ,I discussed case in team meeting ,I did interview patient as he was walking in [place] and agreed to follow me to office Today vitals:he refused Slept 6 hours ,no behavior issue Interim history: Patient was guarded ,evasive ,preoccupied ,stated that "prior to hospitalization someone forced me to go to buy liquor ,that is why my mom put me here",he endorses auditory hallucination ,delusional thinking ,thought insertion ,he stated that he does not want anyone to talk to his mom because"I did not sign consent for this"I explained to him that his mother was appointed as a guardian ,patient was tearful , reports feeling tired from Invega and asked "Can you give me Adderrall" ,explained to him that any [employer] stimulant will make his psychosis worse ,he reluctantly agreed Mental status exam: patient was dressed in street cloth ,starring look ,speech is non spontaneous ,was talking to himself ,rambling,loose of association ,at times he was tearful ,reports auditory hallucinations and thought insertion ,he seems responding to internal stimuli, persecutory delusion denies any suicidal or homicidal ideation ,no insight to his illness and need to be on medications Clinical Problems: Schizophrenia rule out schizoaffective ,bipolar type poor compliance with treatment Plan: Continue inpatient. Patient received Invega 234 mg IM on 04/29 ,boost dose of 156 mg will be given on 05.06,increase oral Invega 9 mg Encourage participation in therapeutic groups and activities. Monitor any side-effect from medications .Evaluate clinical status and response to treatment daily basis.
[2020-05-01] MEDS: PALIPERIDONE 3 MG TAB.ER.24 PO SCH (09:42)
[2020-05-01] MEDS: PANTOPRAZOLE 40 MG TABLET PO SCH (09:43)
[2020-05-01] MEDS: NICOTINE 14MG/24HR PATCH TRANSDERM SCH (09:44)
[2020-05-01] MEDS: LORazepam 1 MG TAB PO PRN (09:45)
[2020-05-02] MEDS: PANTOPRAZOLE 40 MG TABLET PO SCH (08:45)
[2020-05-02] MEDS: NICOTINE 14MG/24HR PATCH TRANSDERM SCH (08:45)
[2020-05-02] MEDS: PALIPERIDONE 3 MG TAB.ER.24 PO SCH (08:46)
[2020-05-02] MEDS ORDERED: PALIPERIDONE 3 MG TAB.ER.24 PO SCH (13:45)
--- NOTE | 2020-05-02 15:58 | PN ---
PROGRESS NOTE DATE OF SERVICE: 05/02/2020 CHIEF COMPLAINT: The patient has a diagnosis of schizophrenia. He was petitioned by his mother due to his stopping medications and having recurrence of psychotic symptoms. INTERVAL HISTORY: The patient continues to have difficulties. He had a quiet evening yesterday. He was out on the unit. He wonders about. He does attend groups. He does not really interact much with others. It is noteworthy, in the leisure education group the following was documented, "patient was whispering under breath to self throughout group to someone not apparent to typewriter mechanic. Patient required multiple verbal cues throughout group to participate in group activity appropriately. Patient was inconsistently redirectable throughout group. Patient was also preoccupied and concerned about a female peer throughout group." There have been similar documentations at other groups he has attended. He reports that he slept well last night. Today he has been up. He wonders about the unit. He can be seen talking to himself. Sometimes he will get a smile on his face when I talk to him. He made various comments though was hard to be clear what he actually was saying. Mostly he talked in a soft voice and seemed to mutter some words whether or not there was anything coherent I could not determine. The patient had no specific complaints or concerns. He reports that he tolerates his psychotropic medications. He was aware about his receiving Invega Sustenna. MENTAL STATUS: Patient was restless. He stood up some of the time. At other times he sat. He gave fair eye contact. At times he had a staring gaze. As noted above he would smile some. He would make various comments mostly under his breath. It is not clear he responded to any questions directly in a coherent way. His affect at times appeared intense. His mood dysphoric. It was difficult to say how distressed he might be. He was showing response to internal stimuli. I was difficult to assess any thoughts of harm. He was oriented to his current situation. ASSESSMENT: I will continue the current diagnosis and treatment plan. I will increase his Invega to 12 mg a day for continued psychotic symptoms. I briefly reviewed medications with the patient, though it was limited because he was not really able to follow the discussion. We will focus on stabilization and discharge planning. MMODL / IJN: [id number] /
[2020-05-03] MEDS: PANTOPRAZOLE 40 MG TABLET PO SCH (08:18)
[2020-05-03] MEDS: NICOTINE 14MG/24HR PATCH TRANSDERM SCH (08:18)
[2020-05-03] MEDS: PALIPERIDONE 6 MG TAB.ER.24 PO SCH (08:18)
[2020-05-03] MEDS: BENZTROPINE MESYLATE 1 MG TAB PO SCH ×2 (12:54→21:20)
--- NOTE | 2020-05-03 13:08 | PN ---
PROGRESS NOTE DATE OF SERVICE: 05/03/2020. CHIEF COMPLAINT: The patient has a diagnosis of schizophrenia. He was petition by his mother due to his stopping medications and having recurrence of psychotic symptoms. The patient has been doing fair. He continues to present with signs of psychosis with he is often appearing to respond to internal stimuli. He had a quiet evening last night. He comes out in the day areas some. He wanders about. He will interact a little with others. He continues to show some odd mannerisms and self talk. On the other hand, he also seems to be paying a little more attention to things around him in an an appropriate manner. He slept fairly well last night. Today he has been up he comes out in the day area. He wanders some. It is noted that when he walks, he tends to hold his arms out to the side and shows little movement or swinging of his arms as he walks. He seems to pay attention to things going on around him. At times, he may have a smile on his face, though is not clear that he is responding to things in his environment. His responses may be more internal than not. He had no specific complaints or concerns today. He tolerates his psychotropic medications. MENTAL STATUS: Patient sat without restlessness. He actually had a somewhat rigid posture. He gave good eye contact, though perhaps had a staring gaze more than not. He answered questions with brief responses. His thoughts were clear. His affect was blunted. He did smile some at different times during the interview. His mood was reserved. He did not appear to be significantly distressed. He continues to respond to internal stimuli. He voiced no thoughts of harm. He was oriented and alert. ASSESSMENT: I will continue the current diagnosis and treatment plan. I will continue the patient on Invega 12 mg a day. He does have some mild cogwheeling in both arms. He also shows some rigidity in movement and gait. I will start the patient on Cogentin 1 mg twice a day. In fact, the patient himself asked for Cogentin. I reviewed medication issues with the patient. We will focus on stabilization and discharge planning. ORAL / MARCUS: [id number] /
[2020-05-04] MEDS: PALIPERIDONE 6 MG TAB.ER.24 PO SCH (09:05)
[2020-05-04] MEDS: ACETAMINOPHEN TAB 325 MG TAB PO PRN (09:05)
[2020-05-04] MEDS: BENZTROPINE MESYLATE 1 MG TAB PO SCH ×2 (09:05→19:47)
[2020-05-04] MEDS: PANTOPRAZOLE 40 MG TABLET PO SCH (09:05)
[2020-05-04] MEDS: NICOTINE 14MG/24HR PATCH TRANSDERM SCH (09:05)
[2020-05-04] MEDS: LORazepam 1 MG TAB PO PRN (11:50)
--- NOTE | 2020-05-04 14:23 | P.PN ---
Progress Note - Text Progress Note Date: 05/04/20 I did review medical records ,I discussed case in team meeting ,I did interview patient as he was walking in [place] and agreed to follow me to office Slept 4 hours , no aggressive behavior but patient has been talking to self and laughing inappropriate Invega was increased to [address] Blount on weekend but seems no improvement Interim history: Patient was guarded ,evasive ,preoccupied ,stated that he wants to get his own place after discharge he endorses auditory hallucination ,delusi onal thinking ,thought insertion ,impaired insight to need for [place] Mental status exam: patient was dressed in street cloth ,starring look ,speech is non spontaneous ,was talking to himself ,rambling,loose of association ,at times laughing inappropriate ,reports auditory hallucinations and thought insertion ,he seems responding to internal stimuli, persecutory delusion denies any suicidal or homicidal ideation ,no insight to his illness and need to be on medications Clinical Problems: Schizophrenia rule out schizoaffective ,bipolar type poor compliance with treatment Plan: Continue inpatient. Will start Clozaril and will titrate it slowly ,CBC with diff weekly. Monitor any side-effect from medications .Evaluate clinical status and response to treatment daily basis.
[2020-05-04 15:45] LABS: Basophils # (A) 0.1 k/uL (0-0.2); Basophils % (A) 1 %; Eosinophils # (A) 0.1 k/uL (0-0.7); Eosinophils % (A) 1 %; HCT 48.4 % (39.0-53.0); HGB 15.6 gm/dL (13.0-17.5); Lymphocytes # (A) 1.2 k/uL (1.0-4.8); Lymphocytes % (A) 15 %; MCH 27.4 pg (25.0-35.0); MCHC 32.1 g/dL (31.0-37.0); MCV 85.4 fL (80.0-100.0); Mean Platelet Volume 7.5; Monocytes # (A) 0.5 k/uL (0-1.0); Monocytes % (A) 6 %; Neutrophils # (A) 5.9 k/uL (1.3-7.7); Neutrophils % (A) 76 %; Platelet Count 224 k/uL (150-450); RBC 5.67 m/uL (4.30-5.90); RDW 12.8 % (11.5-15.5); WBC 7.9 k/uL (3.8-10.6)
[2020-05-04] MEDS: cloZAPine 25 MG TAB PO SCH (19:46)
[2020-05-05] MEDS: BENZTROPINE MESYLATE 1 MG TAB PO SCH ×2 (10:00→20:58)
[2020-05-05] MEDS: NICOTINE 14MG/24HR PATCH TRANSDERM SCH (10:00)
[2020-05-05] MEDS: PANTOPRAZOLE 40 MG TABLET PO SCH (10:00)
--- NOTE | 2020-05-05 10:02 | P.PN ---
Progress Note - Text Progress Note Date: 05/05/20 I did review medical records ,I discussed case in team meeting ,I tried to interview patient as he was laying in bed however he refused as he was tired TODAY VITALS:patient refused to have his vitals Slept 6 hours No behavioral issues Did attend some groups but was laughing inappropriate,whispering and mumbling to self LABS: WBC:7.9,Neutrophils 5.9 Interim history: According to team and patient mother"his guardian"patient was stable on Clozapine and compliant with blood work up ,patient was on 12 mg Invega with injection he received on 04/29 and was still severely psychotic ,mumbling to self ,walking in [place] back and forth ,talking to self and laughing inappropriate He would not get out of bed for the interview. He would not make eye contact. Mental status exam: He presented as a disheveled appearing 29-year-old male who is laying in bed. He would not make eye contact or answer questions. Clinical Problems: Schizophrenia, poor compliance with treatment Plan: Continue inpatient. He received 50 mg Clozaril last night ,will slowly titrate it to target his psychotic symptoms,CBC with Diff weekly,monitor his vitals. Encourage participation in therapeutic groups and activities Evaluate clinical status and response to treatment on daily basis.
[2020-05-05] MEDS: cloZAPine 25 MG TAB PO SCH (20:58)
[2020-05-06] MEDS: BENZTROPINE MESYLATE 1 MG TAB PO SCH ×2 (10:57→20:49)
[2020-05-06] MEDS: PANTOPRAZOLE 40 MG TABLET PO SCH (10:57)
[2020-05-06] MEDS: NICOTINE 14MG/24HR PATCH TRANSDERM SCH (10:58)
--- NOTE | 2020-05-06 11:36 | P.PN ---
Progress Note - Text Progress Note Date: 05/06/20 I did review medical records ,I discussed case in team meeting ,I did interview patient as he was walking in [place] and agreed to follow me to office According to RN note patient slept 6 hours ,did participate in some groups Today vitals: pulse:132,R:16,BP:126/67 Interim history: Patient was guarded ,evasive ,upset about being on Clozaril ,halting and blocking,denies any hallucination but seems responding to internal stimuli,he was irritable saying "I do not hear voices ,who told you this",stated that he was up 3 or 4 times at night but able to fall back asleep,he is withdrawn no peer interaction Mental status exam: patient was dressed in street cloth ,starring look ,speech is non spontaneous ,rambling,loose of association ,starring gaze, ,denies any hallucinations but seems responding to internal stimuli, persecutory delusion denies any suicidal or homicidal ideation ,no insight to his illness and need to be on medications Clinical Problems: Schizophrenia rule out schizoaffective ,bipolar type poor compliance with treatment Plan: Continue inpatient. Continue 50 mg Clozaril HS ,Cogleslye ,will slowly titrate it to target his psychotic symptoms,CBC with Diff weekly,monitor his vitals. Encourage participation in therapeutic groups and activities Evaluate clinical status and response to treatment on daily basis
[2020-05-06] MEDS ORDERED: IBUPROFEN 400 MG TAB PO PRN (11:37)
[2020-05-06] MEDS: cloZAPine 25 MG TAB PO SCH (20:49)
[2020-05-07 08:08] LABS: Basophils # (A) 0.1 k/uL (0-0.2); Basophils % (A) 1 %; Eosinophils # (A) 0.5 k/uL (0-0.7); Eosinophils % (A) 6 %; HCT 46.7 % (39.0-53.0); HGB 15.7 gm/dL (13.0-17.5); Lymphocytes # (A) 2.3 k/uL (1.0-4.8); Lymphocytes % (A) 30 %; MCH 28.5 pg (25.0-35.0); MCHC 33.5 g/dL (31.0-37.0); Mean Platelet Volume 7.2; Monocytes # (A) 0.6 k/uL (0-1.0); Monocytes % (A) 7 %; Neutrophils # (A) 4.2 k/uL (1.3-7.7); Neutrophils % (A) 54 %; Platelet Count 212 k/uL (150-450); RDW 12.7 % (11.5-15.5); WBC 7.8 k/uL (3.8-10.6)
[2020-05-07] MEDS: PANTOPRAZOLE 40 MG TABLET PO SCH (11:19)
[2020-05-07] MEDS: BENZTROPINE MESYLATE 1 MG TAB PO SCH ×2 (11:20→21:24)
[2020-05-07] MEDS: NICOTINE 14MG/24HR PATCH TRANSDERM SCH (11:20)
--- NOTE | 2020-05-07 12:22 | P.PN ---
Progress Note - Text Progress Note Date: 05/07/20 I did review medical records ,I discussed case in team meeting ,I did interview patient as he was walking in [place] and agreed to follow me to office According to RN note patient slept 6 hours ,did participate in some groups Today vitals: pulse:78,R:16,BP:111/60 LABS: WBC:5.5,Neutrophils:4.2 Interim history: Patient was guarded ,evasive ,upset ,irritable ,bizarre delusion saying "Other patients are breathing in my nose and my brain is ruined",was talking to someone saying "Go away let me breath"then he said "I am depressed because I do not want to spend my life here",he is withdrawn no peer interaction Mental status exam: patient was dressed in street cloth ,starring look ,speech is non spontaneous ,rambling,loose of association ,starring gaze, ,denies any hallucinations but seems responding to internal stimuli, persecutory and bizarre delusion ,denies any suicidal or homicidal ideation ,no insight to his illness and need to be on medications Clinical Problems: Schizophrenia rule out schizoaffective ,bipolar type poor compliance with treatment Plan: Continue inpatient. increase Clozaril to 75 mg HS ,Cogentin ,will slowly titrate it to target his psychotic symptoms,CBC with Diff weekly,monitor his vitals. Encourage participation in therapeutic groups and activities Evaluate clinical status and response to treatment on daily basis
[2020-05-07] MEDS: cloZAPine 25 MG TAB PO SCH (21:24)
--- NOTE | 2020-05-08 09:47 | P.PN ---
Progress Note - Text Progress Note Date: 05/08/20 I did review medical records ,I discussed case in team meeting ,I tried to interview patient as he was laying in bed however he refused as he was tired TODAY VITALS:Temp:97.9,P:76,R:16,BP:111/68 Slept 6 hours No behavioral issues Did attend some groups but was laughing inappropriate,whispering and mumbling to self Interim history: Patient is disorganized ,paranoia ,guarded ,avoiding interaction with other peers ,compliant with oral medications and lab He would not get out of bed for the interview. He would not make eye contact. Mental status exam: He presented as a disheveled appearing 29-year-old male who is laying in bed. He would not make eye contact or answer questions. Clinical Problems: Schizophrenia, poor compliance with treatment Plan: Continue inpatient. Continue 75 mg Clozaril,will slowly titrate it to target his psychotic symptoms,CBC with Diff weekly,monitor his vitals. Encourage participation in therapeutic groups and activities Evaluate clinical status and response to treatment on daily basis
[2020-05-08] MEDS: NICOTINE 14MG/24HR PATCH TRANSDERM SCH (09:48)
[2020-05-08] MEDS: BENZTROPINE MESYLATE 1 MG TAB PO SCH ×2 (09:48→21:42)
[2020-05-08] MEDS: PANTOPRAZOLE 40 MG TABLET PO SCH (09:48)
[2020-05-08] MEDS: cloZAPine 25 MG TAB PO SCH (21:42)
[2020-05-09] MEDS: BENZTROPINE MESYLATE 1 MG TAB PO SCH ×2 (09:21→21:57)
[2020-05-09] MEDS: PANTOPRAZOLE 40 MG TABLET PO SCH (09:21)
[2020-05-09] MEDS: NICOTINE 14MG/24HR PATCH TRANSDERM SCH ×2 (09:22→21:57)
--- NOTE | 2020-05-09 11:46 | P.PN ---
Subjective Progress Note Date: 05/09/20 Principal diagnosis: Schizophrenia Subjective I want to talk to I am fine I don't need anything Objective patient was lying in his bed at 11: 40 in the morning he open his eyes and looked at me wasn't angry affect and said he did not want to get up and come and talk to me. Vital signs: Temperature is 97.9 heart rate 76 respirations 16 blood pressure 111/68 room air 98 Labs he had a hematology on 820 was fine no other new labs Group report: As expected by his attitude was went to see him he has not been going to any groups Staff assessment he is guarded withdrawn disheveled no insight poor judgment isolates Medications: The patient is being titrated up on to Clozaril and is at 75 mg Assessment patient is not doing very well but is hard to assess due to attitude he probably will not get significant benefit at his age until he gets about 300 of clozapine. No change at this time is he is being titrated gradually Objective - Vital Signs Vital signs: Vital Signs Temp 97.9 F 05/08/20 06:39 Pulse 76 05/08/20 06:39 Resp 16 05/08/20 06:39 BP 111/68 05/08/20 06:39 Pulse Ox 98 05/08/20 06:39 - Labs CBC & Chem 7: 05/07/20 07:29 04/13/20 05:53
[2020-05-09] MEDS: cloZAPine 25 MG TAB PO SCH (21:57)
[2020-05-10] MEDS: PANTOPRAZOLE 40 MG TABLET PO SCH (09:55)
[2020-05-10] MEDS: BENZTROPINE MESYLATE 1 MG TAB PO SCH ×2 (09:55→22:00)
--- NOTE | 2020-05-10 15:58 | P.PN ---
Subjective Progress Note Date: 05/10/20 Principal diagnosis: Schizophrenia Subjective: The patient still has an attitude talking to me with words like, " you people are doing things to me "he says he was doing fine on paliperidone shots has no idea why it was stopped does not like the idea Clozaril because of the white count and weekly blood draws. He says is making him feel foggy even at 75 mg and wonders why can't just go back on the paliperidone shots. He denies any history of tardive dyskinesia or symptoms at this point he was chewing gum but did not seem to have any mouth movements when he was not chewing gum. So the 2 reasons use Clozaril would be failure of other medicines and/or tardive dyskinesia and he denies both. Objective vital signs temperature 97.9 heart rate 76 respirations 16 and blood p ressure is 111/68 O2 sat is 98 that was drawn on 821 patient not been cooperative for vital since then Labs nothing new Groups: As expected by his attitude he has not been attending Staff assessment: The patient was drawn minimal self-care drowsy vague guarded low energy oriented to person place time and circumstance denies suicidality or homicidality or psychotic symptoms Mental status exam: The patient has an angry look in a chip on his shoulder reasonable self-care quick response times answers fit the questions gait and station are normal psychomotor activity is normal except for chewing gum but I don't see tardive dyskinesia he denies suicidality or homicidality Assessment: The patient agrees that he needs medication and he just thought he did well on the paliperidone I told him that he needed to make a case for that and discuss it with his attending . he just seemed to be upset at having to deal with the system Objective - Vital Signs Vital signs: Vital Signs Temp 97.9 F 05/09/20 21:59 Pulse 76 05/08/20 06:39 Resp 16 05/08/20 06:39 BP 111/68 05/08/20 06:39 Pulse Ox 98 05/08/20 06:39 Intake & Output 05/09/20 05/10/20 05/10/20 18:59 06:59 18:59 Weight 88.4 kg - Labs CBC & Chem 7: 05/07/20 07:29 04/13/20 05:53
[2020-05-10] MEDS: cloZAPine 25 MG TAB PO SCH (22:00)
[2020-05-10] MEDS: MAG HYDROX/AL HYDROX/SIMETH 30 ML CUP PO PRN (22:28)
[2020-05-11] MEDS: BENZTROPINE MESYLATE 1 MG TAB PO SCH ×2 (10:03→20:44)
[2020-05-11] MEDS: PANTOPRAZOLE 40 MG TABLET PO SCH (10:03)
[2020-05-11] MEDS: NICOTINE 14MG/24HR PATCH TRANSDERM SCH (10:03)
--- NOTE | 2020-05-11 12:29 | P.PN ---
Progress Note - Text Progress Note Date: 05/11/20 I did review medical records ,I discussed case in team meeting ,I did interview patient as he was laying in bed and refused to come to office According to RN note patient slept 7 hours ,did participate in some groups Today vitals: patient refused According to SW note(((t/c to pt's mom/guardian to obtain collateral information and progress. She states he is still "really mean" to her and told her to not visit, but then when it's time for visiting, he calls and yells at her for not visiting. She states he is disrespectful to her and manipulative. Per mom, pt will return home with her upon dc once stable. )) Interim history: Patient was guarded ,evasive ,upset about being on Clozaril s aying "I WAS DOING FINE ON INVEGA,I DO NOT WANT TO HAVE BLOOD WORK UP EVERY WEEK",halting and blocking,denies any hallucination but seems responding to internal stimuli,he was irritable saying "I was not on any medication most of summer and I was stable "this",stated that he is tired and "Oversedated"with Clozaril,he is withdrawn no peer interaction Mental status exam: patient was dressed in street cloth ,speech is non spontaneous ,rambling,loose of association ,starring gaze, ,denies any hallucinations but seems responding to internal stimuli, persecutory delusion denies any suicidal or homicidal ideation ,no insight to his illness and need to be on medications Clinical Problems: Schizophrenia rule out schizoaffective ,bipolar type poor compliance with treatment Plan: Continue inpatient. Continue 75mg Clozaril Charo POSEY ,will slowly titrate it to target his psychotic symptoms,CBC with Diff weekly,monitor his vitals. Encourage participation in therapeutic groups and activities Evaluate clinical status and response to treatment on daily basis
[2020-05-11] MEDS: cloZAPine 25 MG TAB PO SCH (20:44)
[2020-05-12] MEDS: NICOTINE 14MG/24HR PATCH TRANSDERM SCH ×2 (10:17→22:21)
[2020-05-12] MEDS: BENZTROPINE MESYLATE 1 MG TAB PO SCH ×2 (10:17→22:20)
[2020-05-12] MEDS: PANTOPRAZOLE 40 MG TABLET PO SCH (10:17)
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
[2020-05-12] MEDS: cloZAPine 100 MG TAB PO SCH (22:21)
[2020-05-13 09:30] LABS: Basophils # (A) 0.1 k/uL (0-0.2); Basophils % (A) 1 %; Eosinophils # (A) 0.3 k/uL (0-0.7); Eosinophils % (A) 6 %; HCT 47.2 % (39.0-53.0); HGB 15.5 gm/dL (13.0-17.5); Lymphocytes % (A) 34 %; MCH 27.7 pg (25.0-35.0); MCHC 32.9 g/dL (31.0-37.0); MCV 84.4 fL (80.0-100.0); Mean Platelet Volume 7.2; Monocytes # (A) 0.5 k/uL (0-1.0); Monocytes % (A) 8 %; Neutrophils # (A) 2.9 k/uL (1.3-7.7); Neutrophils % (A) 49 %; Platelet Count 198 k/uL (150-450); RDW 12.5 % (11.5-15.5); WBC 5.8 k/uL (3.8-10.6)
[2020-05-13] MEDS: BENZTROPINE MESYLATE 1 MG TAB PO SCH ×2 (10:20→21:39)
[2020-05-13] MEDS: NICOTINE 14MG/24HR PATCH TRANSDERM SCH (10:20)
[2020-05-13] MEDS: PANTOPRAZOLE 40 MG TABLET PO SCH (10:20)
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
[2020-05-13] MEDS: cloZAPine 100 MG TAB PO SCH (21:39)
[2020-05-14] MEDS: PANTOPRAZOLE 40 MG TABLET PO SCH (09:47)
[2020-05-14] MEDS: BENZTROPINE MESYLATE 1 MG TAB PO SCH ×2 (09:47→21:45)
[2020-05-14] MEDS: NICOTINE 14MG/24HR PATCH TRANSDERM SCH (09:47)
--- NOTE | 2020-05-14 13:05 | P.PN ---
Progress Note - Text Progress Note Date: 05/14/20 I did review medical records ,I discussed case in team meeting ,I did interview patient as he was laying in bed and refused to come to office According to RN note patient slept 7 hours ,did participate in some groups Today vitals: TEMP:98.2,P:58,R;16,BP:112/56 Patient behavior is unpredictable ,has lot of resentment since court appointed his mother as temp. guardian Interim history: Patient was guarded ,evasive ,upset about being on Clozaril saying "Why you listen to my mom I have the right to pick meds ,I do not like Clozaril" I discussed with him that when he was on 12 mg Invega he was still talking to himself ,he replied "What is wrong with this" Mental status exam: patient was dressed in street cloth ,speech is non spontaneous ,rambling,loose of association ,starring gaze, ,denies any hallucinations but seems responding to internal stimuli, persecutory delusion denies any suicidal or homicidal ideation ,no insight to his illness and need to be on medications Clinical Problems: Schizophrenia rule out schizoaffective ,bipolar type poor compliance with treatment Plan: Continue inpatient. Continue 100mg Clozaril HS ,Charo ,will slowly titrate it to target his psychotic symptoms,CBC with Diff weekly,monitor his vitals. Encourage participation in therapeutic groups and activities Evaluate clinical status and response to treatment on daily basis
[2020-05-14] MEDS: cloZAPine 100 MG TAB PO SCH (21:45)
--- NOTE | 2020-05-15 09:26 | P.PN ---
Progress Note - Text Progress Note Date: 05/15/20 Clinical Problems: Schizophrenia versus schizoaffective , poor compliance with mental health treatment, gynecomastia Interim history: I reviewed the medical record, attempted to interview the patient and discussed his treatment and treatment plan during team meeting. He would not get out of bed for the interview. He mumbled responses to questions then he said "I am sleeping now " Minimal participation in groups. He does not interact with staff or peers. He spends most of his time in bed alone. He slept 7 hours last night. Mental status exam: He presented as a disheveled appearing 29-year-old male who is laying in bed. He would not make eye contact. His speech was garb led and difficult to understand. He appeared guarded and suspicious. However, he did not appear to be responding to internal stimuli. Assessment: He remains withdrawn, suspicious and guarded. She avoids social contact Plan: Continue inpatient. increase Clozaril to 125 mg HS ,Cogentin ,will slowly titrate it to target his psychotic symptoms,CBC with Diff weekly,monitor his vitals. Encourage participation in therapeutic groups and activities Evaluate clinical status and response to treatment on daily basis
[2020-05-15] MEDS: NICOTINE 14MG/24HR PATCH TRANSDERM SCH ×2 (10:17→21:43)
[2020-05-15] MEDS: PANTOPRAZOLE 40 MG TABLET PO SCH (10:18)
[2020-05-15] MEDS: BENZTROPINE MESYLATE 1 MG TAB PO SCH ×2 (10:18→21:35)
[2020-05-15] MEDS ORDERED: cloZAPine 25 MG TAB PO SCH (21:00)
[2020-05-16] MEDS: BENZTROPINE MESYLATE 1 MG TAB PO SCH ×2 (10:42→21:26)
[2020-05-16] MEDS: PANTOPRAZOLE 40 MG TABLET PO SCH (10:42)
[2020-05-16] MEDS: NICOTINE 14MG/24HR PATCH TRANSDERM SCH (10:42)
[2020-05-16] MEDS: MAG HYDROX/AL HYDROX/SIMETH 30 ML CUP PO PRN (15:05)
[2020-05-16 16:21] LABS: Basophils # (A) 0.1 k/uL (0-0.2); Basophils % (A) 1 %; Eosinophils # (A) 0.2 k/uL (0-0.7); Eosinophils % (A) 3 %; HCT 50.8 % (39.0-53.0); HGB 17.1 gm/dL (13.0-17.5); Lymphocytes # (A) 1.4 k/uL (1.0-4.8); Lymphocytes % (A) 20 %; MCH 28.2 pg (25.0-35.0); MCHC 33.6 g/dL (31.0-37.0); MCV 83.9 fL (80.0-100.0); Mean Platelet Volume 7.5; Monocytes # (A) 0.5 k/uL (0-1.0); Monocytes % (A) 7 %; Neutrophils # (A) 4.8 k/uL (1.3-7.7); Neutrophils % (A) 69 %; Platelet Count 193 k/uL (150-450); RBC 6.06 m/uL (4.30-5.90); RDW 12.4 % (11.5-15.5)
[2020-05-16] MEDS: cloZAPine 100 MG TAB PO SCH (21:26)
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
[2020-05-17] MEDS: NICOTINE 14MG/24HR PATCH TRANSDERM SCH (09:48)
[2020-05-17] MEDS: BENZTROPINE MESYLATE 1 MG TAB PO SCH ×2 (09:48→21:26)
[2020-05-17] MEDS: PANTOPRAZOLE 40 MG TABLET PO SCH (09:48)
--- NOTE | 2020-05-17 13:14 | P.PN ---
Progress Note - Text Progress Note Date: 05/17/20 Subjective: Patient was seen today as a cross coverage for Dr. Edgar. The patient was evaluated, chart reviewed, case discussed with the treatment team. Patient refused assessment today and reports "rather to stay asleep". As per nursing report no behavioral problems, but the patient continued to present paranoid and delusional. Patient has been taking his medications and no side effects reported. Patient has not going to groups or other unit activities. He was finishing his meals and no reports of sleep problems. Objective: Vitals has been reviewed. Mental status examination; Appearance: The patient appears stated age, adequately groomed and dressed, no specific features. Gait/posture: Patient was laying in bed and refused to talk Attitude and behavior: Not engaged, not cooperative, no eye contact. Motor activity: Decreased psychomotor activity Speech: Few, refused assessment Mood: Anxious, irritable Affect: Constricted Thought form: preoccupied, paranoid Thought content: Delusional, paranoid, no report of suicidal or homicidal ideation, intention, or plan Perception: No reports of auditory or visual hallucinations Attention: Patient refused assessment Orientation: Patient refused assessment Insight: Patient has limited insight about his psychiatric disorder. Judgment: Patient has limited judgment about his psychiatric treatment. Assessment: Schizophrenia rule out schizoaffective ,bipolar type Plan: Continue inpatient level of care due to need for further stabilization on medications Precautions: Continue 15 minutes check for safety. Consider medical consultation if any acute medical issues arise. Provide the patient individual, group therapy, substance use disorder counseling to give better insight and learn coping skills. Medications: Continue Clozaril 150 mg HS for psychotic symptoms -dose increased yesterday. Continue PRN psych medications Continue non-psychiatric medications for management of co-morbid medical problems. Lab: Repeat CBC Discharge patient to OUTPATIENT services upon a stabilization
[2020-05-17] MEDS: cloZAPine 100 MG TAB PO SCH (21:26)
[2020-05-18] MEDS: NICOTINE 14MG/24HR PATCH TRANSDERM SCH ×2 (09:57→13:02)
[2020-05-18] MEDS: PANTOPRAZOLE 40 MG TABLET PO SCH ×2 (09:57→13:03)
[2020-05-18] MEDS: BENZTROPINE MESYLATE 1 MG TAB PO SCH ×3 (09:57→21:56)
--- NOTE | 2020-05-18 12:22 | P.PN ---
Progress Note - Text Progress Note Date: 05/18/20 Clinical Problems: Schizophrenia versus schizoaffective , poor compliance with mental health treatment, gynecomastia TODAY VITALS:Temp:98.3,P:79,R:16,BP:116/57 SLEPT :6 hours LABS: WBC:7.0,Neutrophils:4.8 Interim history: I reviewed the medical record, attempted to interview the patient and discussed his treatment and treatment plan during team meeting. He would not get out of bed for the interview. He mumbled responses to questions then he said "I am tired" Minimal participation in groups. He does not interact with staff or peers. He spends most of his time in bed alone. Mental status exam: He presented as a disheveled appearing 29-year-old male who is laying in bed. He would not make eye contact. His speech was garbled and difficult to understand. He appeared guarded and suspicious. He seems preoccupied ,irritable at times ,guarded and evasive. He denies any current suicidal or homicidal ideation ,insight and judgment are impaired Assessment: He remains withdrawn, suspicious and guarded. She avoids social contact Plan: Continue inpatient. Increase Clozaril 175 mg ,continue ,Cogentin ,will slowly titrate it to target his psychotic symptoms,CBC with Diff weekly,monitor his vitals. Encourage participation in therapeutic groups and activities Dax beckwith clinical status and response to treatment on daily basis
[2020-05-18] MEDS: cloZAPine 100 MG TAB PO SCH (21:55)
[2020-05-18] MEDS: cloZAPine 25 MG TAB PO SCH (21:55)
[2020-05-19] MEDS: PANTOPRAZOLE 40 MG TABLET PO SCH (08:22)
[2020-05-19] MEDS: BENZTROPINE MESYLATE 1 MG TAB PO SCH ×2 (08:22→21:01)
[2020-05-19] MEDS: NICOTINE 14MG/24HR PATCH TRANSDERM SCH (08:22)
--- NOTE | 2020-05-19 11:41 | P.PN ---
Progress Note - Text Progress Note Date: 05/19/20 Clinical Problems: Schizophrenia versus schizoaffective , poor compliance with mental health treatment, gynecomastia TODAY VITALS:patient refused SLEPT :6 hours Did participate in 2 groups According to SW note((SW notes dated 05/18((tx team meeting held, case discussed. [facility] is working on securing a crisis bed for pt as a step down from hospitalization. Continue to await placement.)) Interim history: I reviewed the medical record, attempted to interview the patient and discussed his treatment and treatment plan during team meeting. He would not get out of bed for the interview. He stated "I am all right" then he asked me "Did you talk with my mom ",was irritable saying "I have been here for almost 6 weeks"then he covered his face with bed sheet and refused to answer any further question Minimal participation in groups. He does not interact with staff or peers. He spends most of his time in bed alone. Mental status exam: He presented as a disheveled appearing 29-year-old male who is laying in bed. He would not make eye contact. His speech was non spontaneous but coherent ,limited in productivity . He appeared paranoia and suspicious. He seems preoccupied ,irritable at times ,guarded and evasive. He denies any current suicidal or homicidal ideation ,insight and judgment are impaired Assessment: He remains withdrawn, suspicious and guarded. He avoids social contact Plan: Continue inpatient. Continue Clozaril 175 mg ,continue ,Cogentin ,will slowly titrate Clozaril to target his psychotic symptoms,CBC with Diff weekly,monitor his vitals. Encourage participation in therapeutic groups and activities Evaluate clinical status and response to treatment on daily basis
[2020-05-19] MEDS: cloZAPine 100 MG TAB PO SCH (21:01)
[2020-05-19] MEDS: cloZAPine 25 MG TAB PO SCH (21:01)
[2020-05-20 10:05] LABS: Basophils % (A) 1 %; Eosinophils # (A) 0.3 k/uL (0-0.7); Eosinophils % (A) 6 %; HCT 48.3 % (39.0-53.0); HGB 15.9 gm/dL (13.0-17.5); Lymphocytes # (A) 1.3 k/uL (1.0-4.8); Lymphocytes % (A) 23 %; MCH 27.6 pg (25.0-35.0); MCHC 32.8 g/dL (31.0-37.0); MCV 84.1 fL (80.0-100.0); Mean Platelet Volume 7.3; Monocytes # (A) 0.4 k/uL (0-1.0); Monocytes % (A) 7 %; Neutrophils # (A) 3.3 k/uL (1.3-7.7); Neutrophils % (A) 61 %; Platelet Count 189 k/uL (150-450); RBC 5.74 m/uL (4.30-5.90); RDW 12.5 % (11.5-15.5); WBC 5.5 k/uL (3.8-10.6)
[2020-05-20] MEDS: PANTOPRAZOLE 40 MG TABLET PO SCH (10:53)
[2020-05-20] MEDS: BENZTROPINE MESYLATE 1 MG TAB PO SCH ×2 (10:53→22:12)
[2020-05-20] MEDS: NICOTINE 14MG/24HR PATCH TRANSDERM SCH (10:53)
--- NOTE | 2020-05-20 12:05 | P.PN ---
Progress Note - Text Progress Note Date: 05/20/20 I did review medical records ,I discussed case in team meeting ,I did interview patient as he was walking in [place] and asked me to talk to him Patient met with [facility] staff this morning who explained top him post plan discharge to snf Patient mother left me message asking if patient can go back on Invega as Clozaril making him tired,it does seem that patient did request this from her According to RN note patient slept 7 hours ,did participate in one group Today vitals: Temp:97.8,P:86,R:16,BP:102/69 LABS: WBC:5.5,Neutrophil:3.3 Interim history: Patient was angry ,irritable ,saying "I do not want snf ",when I tried to explain to him it will be temporary he got agitated saying "How much I have to pay "patient is aware that his mother going back to court to transfer guardianship to [facility],patient stated "I do not want any guardian and if I do not have choice I want my mom to stay my guardian ,I do not want strange person to control my money",patient was ruminating about how much he will get from SSD and he wants to find his own place Mental status exam: patient was dressed in street cloth ,speech is non spontaneous ,rambling,loose of association ,starring gaze, ,denies any hallucinations but seems responding to internal stimuli, paranoia ,suspicious ,angry demeanor denies any suicidal or homicidal ideation ,no insight to his illness and need to be on medications Clinical Problems: Schizophrenia rule out schizoaffective ,bipolar type poor compliance with treatment Plan: Continue inpatient. Continue 175 mg Clozaril,Cogentin ,will slowly titrate it to target his psychotic symptoms,CBC with Diff weekly,monitor his vitals. Encourage participation in therapeutic groups and activities Evaluate clinical status and response to treatment on daily basisSW to facilitate transfer to snf ,patient guardian "Mother"agreed about postd/c plan
[2020-05-20] MEDS: cloZAPine 25 MG TAB PO SCH (22:12)
[2020-05-20] MEDS: cloZAPine 100 MG TAB PO SCH (22:12)
[2020-05-20] MEDS: ACETAMINOPHEN TAB 325 MG TAB PO PRN (22:14)
[2020-05-21] MEDS: BENZTROPINE MESYLATE 1 MG TAB PO SCH ×2 (10:00→22:33)
[2020-05-21] MEDS: PANTOPRAZOLE 40 MG TABLET PO SCH (10:00)
[2020-05-21] MEDS: NICOTINE 14MG/24HR PATCH TRANSDERM SCH (10:00)
--- NOTE | 2020-05-21 12:35 | P.PN ---
Progress Note - Text Progress Note Date: 05/21/20 I did review medical records ,I discussed case in team meeting ,I did interview patient . According to SW and [facility] :patient mother changed her mind regarding prison placement and requesting that patient will return back home,in addition she will stay his guardian and will not transfer it to public one LABS: Prolactin: 48(normal range 2.1 _17.7) Today vitals:Temp:97.8,P:86,R:16,BP:102/69 Patient withdrawn ,staying in bed most of day time,isolating himself ,no interaction with other patients or any group participation Interim history: I tried to interview patient but he would not get out of bed for the interview. He stated "I am all right" then he asked me "When can go home ,I did reconcile with my mom ,I rather have my mom to be my guardian better than public one"" Minimal participation in groups. He does not interact with staff or peers. He spends most of his time in bed alone. Mental status exam: He presented as a disheveled appearing 29-year-old male who is laying in bed. He would not make eye contact. His speech was non spontaneous but coherent ,limited in productivity . He appears tired ,guarded and evasive.He denies any visual or auditory hallucinations He denies any current suicidal or homicidal ideation ,insight and judgment are limited Assessment: He remains withdrawn and avoids social contact Clinical Problems: Schizophrenia rule out schizoaffective ,bipolar type poor compliance with treatment Plan: Continue inpatient. Continue 175 mg Clozaril, and cogentin ,order Clozapine level ,will slowly titrate it to target his psychotic symptoms,CBC with Diff weekly,monitor his vitals. Encourage participation in therapeutic groups and activities Evaluate clinical status and response to treatment on daily basis ,[facility] staff will facilitate family meeting
[2020-05-21] MEDS: cloZAPine 25 MG TAB PO SCH (22:31)
[2020-05-21] MEDS: cloZAPine 100 MG TAB PO SCH (22:33)
[2020-05-22 09:13] LABS: Clozapine (Clozaril) 134 ng/mL (200-700); Norclozapine 91 ng/mL (200-700)
[2020-05-22] MEDS: BENZTROPINE MESYLATE 1 MG TAB PO SCH ×2 (10:30→21:51)
[2020-05-22] MEDS: NICOTINE 14MG/24HR PATCH TRANSDERM SCH (10:30)
[2020-05-22] MEDS: PANTOPRAZOLE 40 MG TABLET PO SCH (10:30)
--- NOTE | 2020-05-22 10:33 | P.PN ---
Progress Note - Text Progress Note Date: 05/22/20 I reviewed medical records ,case was discussed in meeting , Review labs: Clozapine 134,Norclozapine 91 FAMILY MEETINAM to 9:45 :Mother(Guardian),brother(Dion),[facility] CM ,our SW and iv rn Discussed post-discharge plan ,possibility of being transition to residential on Monday,patient did not agree and trying to convince his mother about this,mother was concerned about cost of residential and stated that if MEDICAID will cover it she just want him in residential for couple of weeks,his brother stated that he want Александр to be discharged home staying with mother [facility] staff will contact mother about residential cost and based on this mother will have final decision Patient was still endorsing tiredness from Clozaril and he does not believe that Clozaril is more effective than Invega despite [facility] staff did remind him when she visited him couple of weeks ago he was delusional and talking to himself Assessment: He remains withdrawn and avoids social contact Clinical Problems: Schizophrenia rule out schizoaffective , poor compliance with treatment Plan: Continue inpatient. Continue 175 mg Clozaril, and abdullahi ,order Clozapine level ,will slowly titrate it to target his psychotic symptoms,CBC with Diff weekly,monitor his vitals. Encourage participation in therapeutic groups and activities Evaluate clinical status and response to treatment on daily basis
[2020-05-22] MEDS: cloZAPine 25 MG TAB PO SCH (21:51)
[2020-05-22] MEDS: cloZAPine 100 MG TAB PO SCH (21:51)
--- NOTE | 2020-05-23 10:50 | P.PN ---
Progress Note - Text Progress Note Date: 05/23/20 Interval history: Patient was seen laying down in his bed today however when approached with wr carla patient refused to get out of his bed and speak with account underwriter in the office. He stated that he is doing better today and denied any overnight complaints. He states he is able sleep throughout the night. He claims that he has been taking his clozapine daily and denies any voices at this time. Patient was fairly concrete and had poverty of content and claims that he has not gone any groups today. At this time patient denies any suicidal or homicidal ideations intent or plan. Denies any Auditory or visual hallucinations. Mental status exam: General Appearance: Patient appears to be laying in bed, stated age is alert, difficult to redirect and fairly uncooperative. Improving hygiene and grooming Behavior: In bed, no agitated behavior. Speech: Patient's speech is fluent and nonpressured. [place]. Mood/Affect: Mood is improving mildly, affect is congruent and constricted. Suicidality/Homicidality: Patient denies having any suicidal or homicidal ideation intent or plan. Perceptions: Patient denies any auditory or visual hallucinations. Though content/process: Logical, more appropriate today. [place]. Memory and concentration: Unable to assess Judgment and insight: Chronically poor, improving mildly Assessment/Plan: Continue with current diagnosis. Patient continues to meet criteria for inpatient psychiatric admission for symptom stabilization and safety.Patient will be maintained on current psychotropic medication regimen. Monitor for medication compliance and for any psychotropic medication side effects. Will continue to monitor ongoing response to treatment. Encouraged participation in milieu.
[2020-05-23] MEDS: NICOTINE 14MG/24HR PATCH TRANSDERM SCH (13:02)
[2020-05-23] MEDS: BENZTROPINE MESYLATE 1 MG TAB PO SCH ×2 (13:02→21:44)
[2020-05-23] MEDS: PANTOPRAZOLE 40 MG TABLET PO SCH (13:03)
[2020-05-23] MEDS: cloZAPine 25 MG TAB PO SCH (21:43)
[2020-05-23] MEDS: cloZAPine 100 MG TAB PO SCH (21:44)
[2020-05-24] MEDS: PANTOPRAZOLE 40 MG TABLET PO SCH (09:23)
[2020-05-24] MEDS: BENZTROPINE MESYLATE 1 MG TAB PO SCH ×2 (09:23→21:58)
[2020-05-24] MEDS: NICOTINE 14MG/24HR PATCH TRANSDERM SCH (09:23)
--- NOTE | 2020-05-24 10:52 | P.PN ---
Progress Note - Text Progress Note Date: 05/24/20 Interval history: Patient was seen laying down in his bed today however when approached with wr iter continues to refuse to get up out of his bed. He states that he feels too tired today. He stated that he is improving with regards to his mood however does not want to have his Clozaril increased any longer. He states he is able sleep throughout the night. Patient was fairly concrete and had poverty of content and claims that he has not gone any groups today. At this time patient denies any suicidal or homicidal ideations intent or plan. Denies any Auditory or visual hallucinations. Patient states that in he is having regular bowel movements. Mental status exam: General Appearance: Patient appears to be laying in bed, stated age is alert, difficult to redirect and fairly uncooperative. Improving hygiene and grooming Behavior: In bed, no agitated behavior. Speech: Patient's speech is fluent and nonpressured. [place]. Mood/Affect: Mood is improving mildly, affect is congruent and constricted. Suicidality/Homicidality: Patient denies having any suicidal or homicidal ideat ion intent or plan. Perceptions: Patient denies any auditory or visual hallucinations. Though content/process: Logical, more appropriate today. [place]. Memory and concentration: Unable to assess Judgment and insight: Chronically poor, improving mildly Assessment/Plan: Continue with current diagnosis. Patient continues to meet criteria for inpatient psychiatric admission for symptom stabilization and safety.Patient will be maintained on current psychotropic medication regimen. Monitor for medication compliance and for any psychotropic medication side effects. Will continue to monitor ongoing response to treatment. Encouraged participation in milieu.
[2020-05-24] MEDS: cloZAPine 100 MG TAB PO SCH (21:58)
[2020-05-24] MEDS: cloZAPine 25 MG TAB PO SCH (21:58)
[2020-05-25 07:24] VITALS: RESP 16
[2020-05-25] MEDS: NICOTINE 14MG/24HR PATCH TRANSDERM SCH (10:39)
[2020-05-25] MEDS: BENZTROPINE MESYLATE 1 MG TAB PO SCH ×2 (10:39→21:17)
[2020-05-25] MEDS: PANTOPRAZOLE 40 MG TABLET PO SCH (10:39)
[2020-05-25] MEDS: cloZAPine 25 MG TAB PO SCH (21:17)
[2020-05-25] MEDS: cloZAPine 100 MG TAB PO SCH (21:17)
[2020-05-26 06:45] VITALS: BP 118/72; PULSE 67; TEMP 97.8
[2020-05-26] MEDS: PANTOPRAZOLE 40 MG TABLET PO SCH (10:48)
[2020-05-26] MEDS: BENZTROPINE MESYLATE 1 MG TAB PO SCH (10:48)
[2020-05-26] MEDS: NICOTINE 14MG/24HR PATCH TRANSDERM SCH (10:48)
--- NOTE | 2020-05-26 12:13 | DS ---
DISCHARGE SUMMARY DATE OF ADMISSION: 04/11/2020 DATE OF DISCHARGE: 05/26/2020 AIRCRAFT ARMORER: Desirae Saini for history and medical and medical management. DISCHARGE DIAGNOSES: 1. Schizophrenia versus schizoaffective disorder. 2. Poor compliance with medication. 3. Drug-induced gynecomastia. 4. Nicotine dependence. For history and physical examination, please refer to dictation by Dr. Almonte who dictated on . SUMMARY OF HISTORY AND PHYSICAL EXAMINATION: According to Dr. Almonte, patient did stop his Clozaril and he started hearing voices, mumbling to himself and has severe psychotic break. He stated that he was actively psychotic at the time of admission. Also, they stated that according to the [facility] records, it seemed that the patient was stable on his Clozaril before to go off on court order. HOSPITAL COURSE: Patient was refusing all his medication except p.r.n. Ativan until the probate court, it was April 29. On April 29, the roll slicing machine tender ordered combination between inpatient and outpatient treatment, in addition that his mother applied for temporary guardianship at that time. After the probate court, patient was very resistant to start back on his Clozaril despite that his mom called and she stated that the only medication did help, it was Clozaril, so I did start him on Invega and he took injection of Invega on May 07 and we gradually increased the Invega up to 12 mg at bedtime. However, patient was seen mumbling to himself, laughing inappropriate, severely psychotic, so he was switched to Clozaril and we gradually titrated this with checking CBC with diff. Patient was very upset to be switched from Invega to Clozaril, saying that the Clozaril makes him very tired and not functioning, but I did discuss with him his significant history for gynecomastia. Even I did check his prolactin level and it was 48 and he asked me to give him something to cut down the prolactin. However, I told him that it will increase his psychosis. Patient was suspicious and paranoia throughout most of his hospitalization, does not have any insight to be on medication. However, he was compliant in taking medication when he is here. He did not attend any group therapy. The staff did notice that his psychosis has been getting better and he was not talking to himself as before and he did not seem that he was responding to internal stimuli. I gradually titrated Clozaril to 175 over 2-1/2 weeks period and as I mentioned, he is always complaining of increased sedation, but he was compliant with the blood workup and with clozapine. We did have family meeting with patient's mother and his brother to discuss post discharge plan and we did recommend that transfer him to halfway; however, according to his mother, she is not able to afford the payment of the halfway as currently she has temporary guardianship . [facility] and our tx team recommending transitional to halfway ,we explained to patient this part of court ordered [place], Patient and mother were not happy regarding our post discharge plan MENTAL STATUS AT TIME OF DISCHARGE: Patient is young male with gynecomastia. He appeared attending to the interview. He was suspicious and upset because his stay for more than 6 weeks in the hospital. His speech was nonspontaneous and decreased in rate and rhythm, but he was not suicidal or homicidal. He was not mumbling to himself. He denied any feeling of hopeless, helpless, or worthless. He did not express any clear paranoia or delusional thinking during the interview. He did not express any idea of reference. His thinking was very concrete, but his association appeared coherent and goal-directed and he did not appear to responding to internal stimuli. DISCHARGE MEDICATION: Clozapine 175 mg at bedtime and pantoprazole as needed. Patient has followup with [facility] Patient was instructed to stop smoking and be compliant with medication. Patient is aware that he is on court order for treatment. The last lab I have on May 20, his white blood cells was 5.5, and neutrophil 3.3. On May 21, clozapine level is low 134 and the normal clozapine is just 91. On May 20, his prolactin level was 48. Prognosis guarded due to his poor compliance with [place] MMODL / IJN: [id number] / [facility]
== END 2020-05-26 15:20 | disposition home or self-care (01) | DRG 885 ==
LOC: EC 17:43 → 3MHU 04-12 10:18
PROVIDERS: ADMIT Psychiatry & Neurology Psychiatry; ATTEND Psychiatry & Neurology Psychiatry
DX: F20.9 Schizophrenia, unspecified (principal); F25.0 Schizoaffective disorder, bipolar type; Z91.128 Patient's intentional underdosing of medication regimen for other reason; T43.506A Underdosing of unspecified antipsychotics and neuroleptics, initial encounter; F41.9 Anxiety disorder, unspecified; N62 Hypertrophy of breast; T43.505A Adverse effect of unspecified antipsychotics and neuroleptics, initial encounter; F17.290 Nicotine dependence, other tobacco product, uncomplicated; Z79.899 Other long term (current) drug therapy; Y63.6 Underdosing and nonadministration of necessary drug, medicament or biological substance; Z88.8 Allergy status to other drugs, medicaments and biological substances
CPT/HCPCS: 36415; 80053; 80061; 80159; 80306; 81001; 82075; 83036; 84146; 85025; 85027; 99285

== ENCOUNTER → 2020-09-08 | Outpatient (CLI) | payer OTHER ==
[2020-09-08 11:31] LABS: T4, Free (Free Thyroxine) 1.2 ng/dL (0.80-1.80)
[2020-09-08 11:46] LABS: African American GFR (CKD) 116.5 (60.0-200.0); Lithium 0.4 mmol/L (0.5-1.2); Non-African American GFR(CKD) 100.5 (60.0-200.0); Prolactin 34.9 ng/mL (2.1-17.7)
== END | disposition home or self-care (01) ==
LOC: LABWHC1 07:21
PROVIDERS: ATTEND Psychiatry & Neurology Psychiatry
DX: Z51.81 Encounter for therapeutic drug level monitoring (principal); Z79.899 Other long term (current) drug therapy
CPT/HCPCS: 36415; 80178; 82565; 84146; 84439; 84443; 84520

== ENCOUNTER 2021-09-07 21:36 | Inpatient (IN) | payer MEDICARE, MEDICAID ==
--- NOTE | 2021-09-07 22:08 | ED ---
General Adult HPI - General Source: patient, police, RN notes reviewed, old records reviewed Mode of arrival: ambulatory Limitations: no limitations <Ross Kirk - Last Filed: 09/07/21 22:06> <Steven Nieves - Last Filed: 09/08/21 02:11> - General Chief complaint: Psychiatric Symptoms Stated complaint: Mental Health Time Seen by Provider: 09/07/21 21:53 - History of Present Illness Initial comments: 30-year-old male brought in for psychiatric evaluation. He has been petitioned by [facility]. He is brought in by police. He was not cooperative during transport. Patient has no physical complaints. He does admit to some alcohol use today and states that he was at home was resurrecting people from the . (Ross Kirk) - Related Data Home Medications Medication Instructions Recorded Confirmed Albuterol Sulfate [Proair Hfa] 1 - 2 puff INHALATION RT-Q4H PRN 09/07/21 09/07/21 Benztropine Mesylate [Cogentin] 2 mg PO BID PRN 09/07/21 09/07/21 Cabergoline 0.5 mg PO Q7D 09/07/21 09/07/21 Haloperidol Decanoate [Haldol D] 200 mg IM Q14D 09/07/21 09/07/21 OLANZapine [ZyPREXA] See Taper PO HS 09/07/21 09/07/21 fluvoxaMINE MALEATE 100 mg PO DAILY 09/07/21 09/07/21 Previous Rx's Medication Instructions Recorded Pantoprazole [Protonix] 40 mg PO AC-BRKFST 14 Days 05/26/20 tablet. Allergies Allergy/AdvReac Type Severity Reaction Status Date / Time risperidone [From Risperdal] Allergy Rash/Hives Verified 09/07/21 22:22 fluphenazine [From Prolixin] AdvReac Swelling Verified 09/07/21 22:22 Review of Systems ROS Other: All systems not noted in ROS Statement are negative. <Ross Kirk - Last Filed: 09/07/21 22:06> ROS Other: All systems not noted in ROS Statement are negative. <Steven Nieves - Last Filed: 09/08/21 02:11> ROS Statement: Those systems with pertinent positive or pertinent negative responses have been documented in the HPI. Past Medical History Past Medical History: No Reported History History of Any Multi-Drug Resistant Organisms: None Reported Past Surgical History: No Surgical Hx Reported Past Psychological History: Anxiety, Bipolar, Depression, Schizophrenia Smoking Status: Vaper Past Alcohol Use History: Occasional Past Drug Use History: None Reported <Ross Kirk - Last Filed: 09/07/21 22:06> General Exam Limitations: no limitations General appearance: alert, in no apparent distress Head exam: Present: atraumatic, normocephalic Eye exam: Present: normal appearance, PERRL ENT exam: Present: normal exam Neck exam: Present: normal inspection. Absent: tenderness, meningismus Respiratory exam: Present: normal lung sounds bilaterally. Absent: respiratory distress Cardiovascular Exam: Present: normal rhythm, tachycardia GI/Abdominal exam: Present: soft. Absent: distended, tenderness, guarding Extremities exam: Present: normal inspection, normal capillary refill. Absent: pedal edema Neurological exam: Present: alert. Absent: motor sensory deficit Psychiatric exam: Present: agitated, suicidal ideation, other (Delusional) Skin exam: Present: warm, dry, intact. Absent: cyanosis, diaphoretic <Ross Kirk - Last Filed: 09/07/21 22:06> Course <Ross Kirk - Last Filed: 09/07/21 22:06> Vital Signs 09/07/21 21:49 Temperature 99.1 F Pulse Rate 148 H Respiratory 18 Rate Blood Pressure 129/85 O2 Sat by Pulse 95 Oximetry - Reevaluation(s) Reevaluation #1: 09/07/21 2300 Patient care signed out to Dr. Nieves at shift change awaiting EPS evaluation. (Ross Kirk) Medical Decision Making <Steven Nieves - Last Filed: 09/08/21 02:11> - Medical Decision Making I did see the patient and his following interview completed the clinical c ertificate (Steven Nieves) - Lab Data Lab Results 09/07/21 Range/Units 22:05 Urine Opiates Screen Not Detected (NotDetected) Ur Oxycodone Screen Not Detected (NotDetected) Urine Methadone Screen Not Detected (NotDetected) Ur Propoxyphene Screen Not Detected (NotDetected) Ur Barbiturates Screen Not Detected (NotDetected) U Tricyclic Antidepress Not Detected (NotDetected) Ur Phencyclidine Scrn Not Detected (NotDetected) Ur Amphetamines Screen Not Detected (NotDetected) U Methamphetamines Scrn Not Detected (NotDetected) U Benzodiazepines Scrn Not Detected (NotDetected) Urine Cocaine Screen Not Detected (NotDetected) U Marijuana (THC) Screen Detected H (NotDetected) Disposition <Ross Kirk - Last Filed: 09/07/21 22:06> Is patient prescribed a controlled substance at d/c from ED?: No <Steven Nieves - Last Filed: 09/08/21 02:11> Clinical Impression: Psychosis Disposition: ADMITTED IP TO THIS HOSP Condition: Fair
[2021-09-07 22:24] LABS: Amphetamine Screen,Urine Not Detected (NotDetected); Barbiturate Screen,Urine Not Detected (NotDetected); Benzodiazepines Screen,Urine Not Detected (NotDetected); Cocaine Screen,Urine Not Detected (NotDetected); Methadone Screen, Urine Not Detected (NotDetected); Opiate Screen,Urine Not Detected (NotDetected); Oxycodone Screen, Urine Not Detected (NotDetected); Phencyclidine Screen,Urine Not Detected (NotDetected); Tricyclic Antidepressant,Urine Not Detected (NotDetected); Urn Cannabinoid Scrn Detected (NotDetected)
[2021-09-08] MEDS ORDERED: NICOTINE 14MG/24HR PATCH TRANSDERM STA (00:38)
[2021-09-08] MEDS: MAG HYDROX/AL HYDROX/SIMETH 30 ML CUP PO PRN ×2 (00:52→04:25)
[2021-09-08] MEDS ORDERED: MAGNESIUM HYDROXIDE 2,400 MG/10 ML CUP PO PRN (00:54)
[2021-09-08] MEDS ORDERED: HALOPERIDOL LACTATE 5 MG/ML 1 ML VIAL IM PRN (00:58)
[2021-09-08] MEDS ORDERED: haloperidoL 5 MG TAB PO PRN (00:58)
[2021-09-08] MEDS ORDERED: LORazepam 2 MG/ML INJ IM PRN (00:59)
[2021-09-08] MEDS ORDERED: BENZTROPINE MESYLATE 1 MG TAB PO PRN (01:00)
[2021-09-08] MEDS ORDERED: ALBUTEROL HFA INHALER INHALATION PRN (01:00)
--- NOTE | 2021-09-08 04:20 | P.PN ---
Progress Note - Text Progress Note Date: 09/08/21 Patient sleeping and not appropriate for evaluation at this time.
[2021-09-08] MEDS: LORazepam 1 MG TAB PO PRN ×2 (04:25→19:50)
[2021-09-08] MEDS: PANTOPRAZOLE 40 MG TABLET PO SCH (09:20)
[2021-09-08] MEDS ORDERED: LORATADINE 10 MG TAB PO PRN (10:17)
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
--- NOTE | 2021-09-08 20:06 | P.HPIM ---
History of Present Illness H&P Date: 09/08/21 Patient admitted to the hospital for hearing voices No complains of any chest pain shortness of breath Does not appear to be in any distress Constitutional: No acute distress, conversant, pleasant Eyes: Anicteric sclerae, moist conjunctiva, no lid-lag PERRLA ENMT: NC/AT Oropharynx clear, no erythema, exudates Neck: Supple, FROM, no masses, or JVD No carotid bruits No thyromegaly Lungs: Clear to auscultation Clear to percussion Normal respiratory effort, no accessory muscle use Cardiovascular: Heart regular in rate and rhythm, No murmurs, gallops, or rubs No peripheral edema Abdominal: Soft Nontender, no guarding, rebound or rigidity Abdomen moving with respiration Normoactive bowel sounds No hepatomegaly, No splenomegaly No palpable mass No abdominal wall hernia noted Skin: Normal temperature, tone, texture, turgor No induration No subcutaneous nodules No rash, lesions No ulcers Extremities: No digital cyanosis No clubbing Pedal pulses intact and symmetrical Radial pulses intact and symmetrical Normal gait and station No calf tenderness Psychiatric:Alert and oriented to person, place and time Appropriate affect Intact judgement Neuro: Muscles Strength 5/5 in all 4 extremities Sensation to light touch grossly present throughout Cranial nerves II-XII grossly intact No focal sensory deficits Review of systems and systems has been reviewed all negative and positive findings as per history of present illness Assessment and plan Delusions management as better psychiatric Patient is medically stable Alcohol use monitor closely No evidence of any withdrawals at this time Past Medical History Past Medical History: No Reported History History of Any Multi-Drug Resistant Organisms: None Reported Past Surgical History: No Surgical Hx Reported Past Psychological History: Anxiety, Bipolar, Depression, Schizophrenia Smoking Status: Vaper Past Alcohol Use History: Occasional Past Drug Use History: None Reported Medications and Allergies Home Medications Medication Instructions Recorded Confirmed Type Pantoprazole [Protonix] 40 mg PO AC-BRKFST 14 Days 05/26/20 09/07/21 Rx tablet. Albuterol Sulfate [Proair Hfa] 1 - 2 puff INHALATION RT-Q4H PRN 09/07/21 09/07/21 History Benztropine Mesylate [Cogentin] 2 mg PO BID PRN 09/07/21 09/07/21 History Cabergoline 0.5 mg PO Q7D 09/07/21 09/07/21 History Haloperidol Decanoate [Haldol D] 200 mg IM Q14D 09/07/21 09/07/21 History OLANZapine [ZyPREXA] See Taper PO HS 09/07/21 09/07/21 History fluvoxaMINE MALEATE 100 mg PO DAILY 09/07/21 09/07/21 History Allergies Allergy/AdvReac Type Severity Reaction Status Date / Time risperidone [From Risperdal] Allergy Rash/Hives Verified 09/07/21 22:22 fluphenazine [From Prolixin] AdvReac Swelling Verified 09/07/21 22:22 Physical Exam Vitals: Vital Signs Temp Pulse Pulse Resp BP BP Pulse Ox 09/08/21 02:28 98.1 F 107 H 18 131/87 97 09/08/21 02:19 71 18 132/87 99 09/07/21 21:49 99.1 F 148 H 18 129/85 95 Results Labs: Abnormal Lab Results - Last 24 Hours (Table) 09/07/21 Range/Units 22:05 U Marijuana (THC) Screen Detected H (NotDetected)
[2021-09-09 06:52] LABS: Basophils # (A) 0.1 k/uL (0-0.2); Basophils % (A) 1 %; Eosinophils # (A) 0.5 k/uL (0-0.7); Eosinophils % (A) 8 %; HCT 48.5 % (39.0-53.0); HGB 16.3 gm/dL (13.0-17.5); Lymphocytes # (A) 2.2 k/uL (1.0-4.8); Lymphocytes % (A) 33 %; MCH 29.4 pg (25.0-35.0); MCHC 33.6 g/dL (31.0-37.0); MCV 87.5 fL (80.0-100.0); Mean Platelet Volume 7.1; Monocytes # (A) 0.4 k/uL (0-1.0); Monocytes % (A) 6 %; Neutrophils # (A) 3.3 k/uL (1.3-7.7); Neutrophils % (A) 50 %; Platelet Count 241 k/uL (150-450); RBC 5.55 m/uL (4.30-5.90); RDW 13.1 % (11.5-15.5); WBC 6.5 k/uL (3.8-10.6)
[2021-09-09 07:22] LABS: ALT 23 U/L (4-49); AST 29 U/L (17-59); African American GFR (CKD) >90 (>60 ml/min/1.73 sqM); Albumin 4.1 g/dL (3.5-5.0); Alkaline Phosphatase 73 U/L (38-126); Anion Gap 11 mmol/L; Blood Urea Nitrogen 13 mg/dL (9-20); Calcium 9.4 mg/dL (8.4-10.2); Carbon Dioxide 25 mmol/L (22-30); Chloride 105 mmol/L (98-107); Glucose 92 mg/dL (74-99); Non-African American GFR(CKD) >90 (>60 ml/min/1.73 sqM); Potassium 4.3 mmol/L (3.5-5.1); Sodium 141 mmol/L (137-145); Total Bilirubin 0.6 mg/dL (0.2-1.3); Total Protein 6.9 g/dL (6.3-8.2)
[2021-09-09] MEDS: PANTOPRAZOLE 40 MG TABLET PO SCH (08:15)
[2021-09-09] MEDS: NICOTINE 14MG/24HR PATCH TRANSDERM SCH (08:23)
[2021-09-09] MEDS ORDERED: NON FORMULARY DRUG (Cabergoline [Cabergoline] 0.5 MG Tablet) PO SCH (09:00)
[2021-09-09 11:01] LABS: Chol/HDL Ratio 3.98 Ratio; LDL Cholesterol,Calculated 106.7 mg/dL (0.0-131.0)
[2021-09-09] MEDS ORDERED: BENZTROPINE MESYLATE 1 MG TAB PO PRN (12:23)
[2021-09-09] MEDS ORDERED: OLANZapine 5 MG TAB PO ONE (12:30)
--- NOTE | 2021-09-09 13:27 | PN ---
PROGRESS NOTE DATE OF SERVICE: 09/09/2021. CHIEF COMPLAINT: The patient was delusional. He had disorganized thoughts and behaviors and reported that he was doing various drugs. INTERVAL HISTORY: Patient has been doing fair. He had a quiet day yesterday. He spent most of the day in bed. He said he slept about 15 hours yesterday. Today he has been up and out on the unit. He wanders about. He asked me specific questions about my completing the certification. He wondered why I put that I evaluated him for 60 minutes when we only talked for a very brief period of time. I discussed that I had reviewed his chart. We talked at length about past treatment issues. It is noted that Dr. Holloway had indicated he was looking at starting restarting the patient on Clozaril, which he had been on previously. For the patient's part, he indicated that he did not want to be on Clozaril because he felt he slept excessively. He acknowledged today that he has been drinking. He was vague about specifics. At one point he indicated that his drinking had progressively increased. He was vague about specifics though seemed to suggest that drinking issues have been going on at least several months. He acknowledges that he has had periods in the past when he was fairly stable in mental health issues, he was able to work in the community. He has a degree in mechanical engineering though at this point feels he does not have the inclination to pursue that field any further. He asked for medicine for anxiety. He said that Dr. Holloway had declined his request to get on Klonopin mainly because he had apparently tested positive for Kratom. He notes that he thinks he has some muscle stiffness relating to Haldol, though he suggested that it seems to come and go. He otherwise tolerates his psychotropic medications fairly well. The patient notes that Dr. Holloway had started Zyprexa. The patient was unclear why that was indicated, though I read the note from Dr. Holloway saying that he was recommending clozapine, but since the patient was declining clozapine, Zyprexa was the alternative. MENTAL STATUS EXAM: Patient sat with some restlessness. He gave fairly good eye contact. He was spontaneous and interactive. He asked appropriate questions and paid attention to the conversation. His affect was somewhat intense at times, his mood dysphoric. He seemed moderately distressed. He continued to indicate that he has auditory hallucinations and paranoid thinking. He voiced no thoughts of harm. He was oriented and alert. ASSESSMENT: I will continue the current diagnosis and treatment plan. I discussed withdrawal issues at length. The patient has been having issues with anxiety, though it may well relate to withdrawal from alcohol. While I do not have specifics, it does sound as if he has been drinking a significant amount over an extended period of time. I will start the patient on Zyprexa 5 mg 3 times a day. Patient was somewhat reluctant to consider starting that medication, though I indicated that at this point the focus would be for Zyprexa to help ameliorate withdrawal symptoms relating to alcohol. I will start him at 5 mg 3 times a day. I reviewed indications, potential side effects and concerns relating to metabolics and movement disorder issues. I did clarify with the patient that he has Cogentin available. He did not want to take it regularly though does have 1 mg twice a day p.r.n. if he feels he is having muscle effects from Haldol. At this point he will continue fluvoxamine 100 mg daily. I would focus on getting him through the early period of withdrawal before looking at possibly further attention to his antidepressant. Antidepressants are not likely to have much benefit in the first 6 weeks of withdrawal from alcohol. His last Haldol Decanoate injection was 200 mg IM on August 30, so he will be due in the next week for a follow-up dose. We will focus on stabilization and discharge planning. ORAL / MARCUS: [id number] / CARSON
[2021-09-09] MEDS: OLANZapine 5 MG TAB PO SCH ×2 (16:49→22:00)
[2021-09-10] MEDS: PANTOPRAZOLE 40 MG TABLET PO SCH (08:30)
[2021-09-10] MEDS: OLANZapine 5 MG TAB PO SCH ×3 (08:30→23:06)
[2021-09-10] MEDS: NICOTINE 14MG/24HR PATCH TRANSDERM SCH (08:30)
--- NOTE | 2021-09-10 11:28 | PN ---
PROGRESS NOTE DATE OF SERVICE: 09/10/2021. CHIEF COMPLAINT: The patient was delusional. He had disorganized thoughts and behaviors and reported that he was doing various drugs. INTERVAL HISTORY: The patient has been doing fair. He had a quiet day yesterday. He comes out on the unit. He will wander about some. He does not interact too much with others. He attended one group for about 15 to 30 minutes. He tended to have a quiet manner in group. He spent a fair amount of time in his room. He slept fairly well last night. Today he has been up. Again he has a quiet manner and keeps to himself. He has been in his room much of the morning time. When I tried to talk to him, he said that he did not have much to say. He did not voice any concerns. As noted previously, a primary issue has been the various drugs that he has been doing and that he seems to acknowledge this has been a significant issue that is ongoing. A focus of treatment at this point has been to try to help ameliorate acute withdrawal symptoms. He has a history of psychosis and currently is diagnosed through [facility] with schizophrenia. It was documented that he was having increased problems with hallucinations and delusions, possibly in part related to noncompliance with medications along with significant drug abuse. When I talked to him today, the patient was not inclined to discuss either issues relating to thought disorder problems or drug use issues. He appears to tolerate his psychotropic medications. MENTAL STATUS: Patient sat without restlessness. Eye contact was fair, psychomotor activity slowed. He answered questions with brief responses. He did not say much. His affect was flat, mood reserved. He seemed moderately distressed. There were continued indications of thought disorder, presenting mainly through some disorganized thought process. He has made no indication of thoughts of harm. He is oriented to circumstances and surroundings. ASSESSMENT: I will continue the current diagnosis and treatment plan. I will continue psychotropic medications the same. Will continue Zyprexa 5 mg 3 times a day. The primary aim is to help reduce physiologic stress response relating to acute substance withdrawal. In addition, Zyprexa has indication for psychosis, which is part of his underlying condition. He will also continue Luvox 100 mg a day and has availability of Cogentin 1 mg twice a day p.r.n. We will focus on stabilization and discharge planning. MMODL / IJN: [id number] /
[2021-09-10 15:21] LABS: Appearance,Urine Clear (Clear); Bilirubin,Urine Negative (Negative); Blood,Urine Negative (Negative); Color,Urine Colorless; Glucose,Urine (UA) Negative (Negative); Ketones,Urine Negative (Negative); Leukocyte Esterase,Urine Negative (Negative); Nitrite,Urine Negative (Negative); PH, Urine 5.5 (5.0-8.0); Protein,Urine Negative (Negative); Specific Gravity,Urine 1.003 (1.001-1.035); Urobilinogen,Urine <2.0 mg/dL (<2.0)
[2021-09-11] MEDS: OLANZapine 5 MG TAB PO SCH ×3 (08:32→21:26)
[2021-09-11] MEDS: NICOTINE 14MG/24HR PATCH TRANSDERM SCH (08:32)
[2021-09-11] MEDS: PANTOPRAZOLE 40 MG TABLET PO SCH (08:33)
--- NOTE | 2021-09-11 15:54 | PN ---
PROGRESS NOTE DATE OF SERVICE: 09/11/2021. CHIEF COMPLAINT: The patient was delusional. He had disorganized thoughts and behavior and reports that he was doing various drugs. INTERVAL HISTORY: He had a quiet day yesterday. He kept to himself. He spent a fair amount of time in his room. He did not attend groups. He seemed to show a reserved manner. He did not interact much with others. He slept well last night. Today he has been up. He appears to be doing the same. He has been out on the unit some. He wonders about, though he does not seem to pay too much attention to things going on around him. When I talked to him today, he immediately asked questions about the petition process. He said that he was told he had already seen an patent prosecution attorney. He was uncertain about what that would entail, as he does not recall meeting with an patent prosecution attorney. I discussed issues of deferral versus court hearing. The patient did not really raise any more issues in regard to that. He had a quiet manner. He has been taking his medications. He tolerates his psychotropic medications. MENTAL STATUS EXAM: Patient sat without restlessness. He leaned forward, elbows on knees. He gave fairly good eye contact. He did not say much. His affect was flat. He had a very quiet, withdrawn manner. His mood was dysphoric. He was moderately distressed. He continues to show issues of thought disorder. He made no indication of thoughts of harm. Cognition was clear. ASSESSMENT: I will continue the current diagnosis and treatment plan. I will continue psychotropic medications the same. I discussed the court petition issue with the patient. I encouraged him to continue with medications. We discussed options for outpatient followup. MMODL / IJN: [id number] /
[2021-09-12] MEDS: PANTOPRAZOLE 40 MG TABLET PO SCH (08:56)
[2021-09-12] MEDS: NICOTINE 14MG/24HR PATCH TRANSDERM SCH (08:56)
[2021-09-12] MEDS: OLANZapine 5 MG TAB PO SCH ×3 (08:56→21:40)
--- NOTE | 2021-09-12 12:55 | PN ---
PROGRESS NOTE DATE OF SERVICE: 09/12/2021. CHIEF COMPLAINT: The patient was delusional. He had disorganized thoughts and behavior and reports that he was doing various drugs. INTERVAL HISTORY: Patient has been doing fair. He had a quiet day yesterday. He spent a fair amount of time in his room. He does not interact too much with others. He did attend one group. One of the notes from the group is as follows: "Patient left and returned to [facility] multiple times with minimal participation in activity." Patient said he slept well last night. Today he has been up. He continues to keep to himself. He spent a fair amount of the morning in his room. He had no specific complaints or concerns when I talked to him. He asked if he would be able to sign a deferral and said he planned to do so. He tolerates his psychotropic medications. MENTAL STATUS: Patient sat with a little restlessness. He did not give much eye contact. He answered questions appropriately with brief responses. He did not say much. His affect was blunted, his mood reserved. He did not appear to be significantly distressed. It was difficult to assess for thought disorder, though there was a sense that he may continue to have some paranoid thinking. He voiced no thoughts of harm. He was oriented and alert. ASSESSMENT: I will continue the current diagnosis and treatment plan. I will continue psychotropic medications the same. We will continue with the petition process. I briefly reviewed medication issues with the patient, though he was not too engaged in the conversation. We will focus on stabilization and discharge planning. ORAL / JUAN CN: [id number] /
[2021-09-13] MEDS: NICOTINE 14MG/24HR PATCH TRANSDERM SCH (08:22)
[2021-09-13] MEDS: OLANZapine 5 MG TAB PO SCH (08:22)
[2021-09-13] MEDS: PANTOPRAZOLE 40 MG TABLET PO SCH (08:23)
--- NOTE | 2021-09-13 13:31 | P.PN ---
Progress Note - Text Progress Note Date: 09/13/21 Interval History: Patient was seen wandering the hallways and was directable and agreeable to yogi leiva with singer songwriter in the office. Patient appeared to be just waking up from sleep. He was fairly appropriate and calm during the interview. He did appear to be fairly surprised and was endorsing mild paranoia during the interview. He claims that he is doing better on medication since coming into the hospital. He claims that he was hearing voices at home telling him to "put my hands up" and believes that the telegraph installer are coming to arrest him. He states that he has been trying to be compliant with his medications and has been taking his Haldol D however does not remember when he last received it. He claims that his mood has been mildly improving along with his anxiety. He states that he was sleeping better last night. At this time patient denies any suicidal or homical ideations, intent or plan. Patient denies any auditory, visual hallucinations. Patient denies any side effects from the medications and has been compliant with meds. Mental Status Exam: General Appearance: Patient appears to be overweight, wearing glasses, stated age is alert, directable, and attempts to be cooperative. Appears to be just waking up. Behavior: Patient is calmly seated without any agitated behavior. Attempts to cooperate. Speech: Patient's speech is fluent and nonpressured. Monotone and concrete Mood/Affect: Mood is improving mildly, affect is congruent and constricted. Suicidality/Homicidality: Patient denies having any suicidal or homicidal ideation intent or plan. Perceptions: Patient denies any visual hallucinations and denies any auditory hallucinations Though content/process: There is no evidence of any delusional thought content and thought process is concrete. Endorsing mild paranoia today. Memory and concentration: AOX3, grossly intact for the purposes of this session Judgment and insight: Chronically poor, Improving mildly Assessment Schizophrenia, with acute exacerbation Cannabis use disorder Nicotine dependence Plan: -Patient continues to meet criteria for inpatient psychiatric admission for symptom stabilization and safety. Patient has signed medication consent and was placed in patient's chart. -Medications: Patient receives Haldol D 200 mg every 2 weeks IM and will confirm with [facility] when patient's next dose will be due. Change Zyprexa dosing to 10 mg daily at bedtime for mood stabilization/insomnia and also to help with hallucinations. Continue with Luvox 100 mg daily for mood/anxiety. Cogentin 1 mg twice a day when necessary for muscle spasms. -When necessary Ativan and Haldol for agitation/aggression. -NRT - nicotine patch -SW on board for discharge planning. Encouraged the patient to participate in milieu. Patient has deferral with his attorney recruiter to tomorrow and plans to defer. Likely discharge in 1-2 days.
[2021-09-13] MEDS ORDERED: OLANZapine 10 MG TAB PO SCH (21:00)
[2021-09-14] MEDS: NICOTINE 14MG/24HR PATCH TRANSDERM SCH (08:59)
[2021-09-14] MEDS: PANTOPRAZOLE 40 MG TABLET PO SCH (08:59)
[2021-09-14] MEDS ORDERED: clonazePAM 1 MG TAB PO PRN (10:23)
--- NOTE | 2021-09-14 11:04 | P.PN ---
Progress Note - Text Progress Note Date: 09/14/21 Interval History: Patient was seen wandering the hallways and was directable and agreeable to sp eak with field underwriter in the office. Patient appeared to be more cooperative with field underwriter however continues to endorse paranoia. He endorsed it about his coworkers who were plotting against him and possibly staff members as well. He did seem to trust field underwriter more today. He claims that he is doing better overall with the medications however was complaining of cramping in his jaw possibly from the Haldol. He requested to be back on Cogentin to help him with this and also requested Klonopin to help with his anxiety. He states that it helps him stop drinking. Patient will be due for his long-acting injection today. He claims that his mood has been mildly improving along with his anxiety. He states that he was sleeping better last night. At this time patient denies any suicidal or homical ideations, intent or plan. Patient denies any visual hallucinations. Patient denies any side effects from the medications and has been compliant with meds. He claims that he is hearing voices today. Mental Status Exam: General Appearance: Patient appears to be overweight, wearing glasses, stated age is alert, directable, and attempts to be cooperative. Behavior: Patient is calmly seated without any agitated behavior. Attempts to cooperate. Paranoid Speech: Patient's speech is fluent and nonpressured. Monotone and concrete Mood/Affect: Mood is improving mildly, affect is congruent and constricted. Suicidality/Homicidality: Patient denies having any suicidal or homicidal ideation intent or plan. Perceptions: Patient denies any visual hallucinations and admits to auditory hallucinations today. Though content/process: There is no evidence of any delusional thought content and thought process is concrete. Endorsing paranoia today. Memory and concentration: AOX3, grossly intact for the purposes of this session Judgment and insight: Chronically poor, Improving mildly Assessment Schizophrenia, with acute exacerbation Cannabis use disorder Nicotine dependence Plan: -Patient continues to meet criteria for inpatient psychiatric admission for symptom stabilization and safety. Patient has signed medication consent and was placed in patient's chart. -Medications: Ordered Haldol D 200 mg today and scheduled every 2 weeks IM. Increased Zyprexa dosing to 15 mg daily at bedtime for mood stabilization/insomnia and also to help with hallucinations. Continue with Luvox 100 mg daily for mood/anxiety. Changed Cogentin 0.5 mg twice a day for EPS prophylaxis. Added Klonopin prn twice a day for anxiety. -When necessary Haldol for agitation/aggression. -NRT - nicotine patch -SW on board for discharge planning. Encouraged the patient to participate in milieu. Patient has deferral with his banking attorney today and plans to defer. Likely discharge in 1-2 days.
[2021-09-14] MEDS ORDERED: HALOPERIDOL DECANOATE 100 MG/ML 1 ML VIAL IM SCH (11:30)
[2021-09-14] MEDS: ACETAMINOPHEN TAB 325 MG TAB PO PRN ×2 (14:14→20:36)
[2021-09-14] MEDS: BENZTROPINE MESYLATE 0.5 MG TAB PO SCH ×2 (14:15→20:34)
[2021-09-14] MEDS ORDERED: OLANZapine 7.5 MG TAB PO SCH (21:00)
[2021-09-15 08:53] VITALS: BP 117/62; PULSE 103; RESP 16; TEMP 97.8
[2021-09-15] MEDS: NICOTINE 14MG/24HR PATCH TRANSDERM SCH (08:53)
[2021-09-15] MEDS: PANTOPRAZOLE 40 MG TABLET PO SCH (08:54)
[2021-09-15] MEDS: BENZTROPINE MESYLATE 0.5 MG TAB PO SCH (08:54)
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
== END 2021-09-15 12:46 | disposition home or self-care (01) | DRG 885 ==
LOC: EC 21:36 → 3MHU 09-08 00:51
PROVIDERS: ADMIT Psychiatry & Neurology Psychiatry; ATTEND Psychiatry & Neurology Psychiatry
DX: F20.9 Schizophrenia, unspecified (principal); F10.239 Alcohol dependence with withdrawal, unspecified; F12.10 Cannabis abuse, uncomplicated; F17.200 Nicotine dependence, unspecified, uncomplicated; F31.9 Bipolar disorder, unspecified; F41.9 Anxiety disorder, unspecified; G47.00 Insomnia, unspecified; Z79.899 Other long term (current) drug therapy; Z91.14 Patient's other noncompliance with medication regimen; Z20.822 Contact with and (suspected) exposure to COVID-19
CPT/HCPCS: 80053; 80061; 80306; 81003; 82075; 83036; 84443; 85025; 87635; 99285

== ENCOUNTER 2021-11-14 19:37 | Inpatient (IN) | payer MEDICARE, MEDICAID ==
[2021-11-14] MEDS ORDERED: LORazepam 1 MG TAB PO ONE (21:25)
[2021-11-14 21:31] LABS: Amphetamine Screen,Urine Not Detected (NotDetected); Barbiturate Screen,Urine Not Detected (NotDetected); Benzodiazepines Screen,Urine Not Detected (NotDetected); Cocaine Screen,Urine Not Detected (NotDetected); Methadone Screen, Urine Not Detected (NotDetected); Opiate Screen,Urine Not Detected (NotDetected); Oxycodone Screen, Urine Not Detected (NotDetected); Phencyclidine Screen,Urine Not Detected (NotDetected); Tricyclic Antidepressant,Urine Not Detected (NotDetected); Urn Cannabinoid Scrn Not Detected (NotDetected)
--- NOTE | 2021-11-15 00:30 | ED ---
General Adult HPI - General Chief complaint: Psychiatric Symptoms Stated complaint: Mental Health Time Seen by Provider: 11/14/21 19:49 Source: patient, RN notes reviewed, old records reviewed Mode of arrival: ambulatory - History of Present Illness Initial comments: Patient is a 31-year-old male with past medical history remarkable for psychiatric illness who presents emergency Department complaining of worsening delusions that are telling him to kill himself. He is here frequently. States he is having more voices telling him to hurt himself or he will go to [facility]. States his Haldol injections do not seem to be improving. Denies any homicidal ideations, attempts, plans. Denies any suicidal plans or attempts. Denies any visual hallucinations but endorses auditory. His no other acute complaints at this time. Is seeking psychiatric evaluation. Presents with his mother who corroborates the story. Denies any drug use. - Related Data Home Medications Medication Instructions Recorded Confirmed Albuterol Sulfate [Proair Hfa] 1 - 2 puff INHALATION RT-Q4H PRN 09/07/21 11/14/21 Cabergoline 0.5 mg PO Q7D 09/07/21 11/14/21 Previous Rx's Medication Instructions Recorded Benztropine Mesylate [Cogentin] 0.5 mg PO BID 30 Days tab 09/15/21 Haloperidol Decanoate [Haldol D] 200 mg IM Q14D #1 each 09/15/21 Nicotine 14Mg/24Hr Patch [Habitrol] 1 patch TRANSDERM DAILY 14 Days 09/15/21 patch OLANZapine [ZyPREXA] 15 mg PO HS 30 Days tab 09/15/21 Pantoprazole [Protonix] 40 mg PO AC-BRKFST 30 Days 09/15/21 clonazePAM [KlonoPIN] 0.5 mg PO BID PRN 14 Days #28 tab 09/15/21 fluvoxaMINE MALEATE 100 mg PO DAILY 30 Days tab 09/15/21 Allergies Allergy/AdvReac Type Severity Reaction Status Date / Time Penicillins Allergy Unknown Verified 11/14/21 21:32 Childhood risperidone [From Risperdal] Allergy Rash/Hives Verified 11/14/21 21:32 fluphenazine [From Prolixin] AdvReac Swelling Verified 11/14/21 21:32 Review of Systems ROS Statement: Those systems with pertinent positive or pertinent negative responses have been documented in the HPI. Review of Systems: CONST: Denies fever EYES: Denies blurry vision ENT: Denies nasal congestion C/V: Denies Chest pain RESP: Denies shortness of breath GI: Denies abdominal pain : Denies dysuria SKIN: Denies rash. MSK: Denies joint pain. NEURO: Denies headache PSYCH: Denies homicidal ideations/plans/attempts. Denies visual h allucinations. He endorses suicidal ideations, but denies plans or attempts. Endorses auditory hallucinations and delusions. ROS Other: All systems not noted in ROS Statement are negative. Past Medical History Past Medical History: No Reported History History of Any Multi-Drug Resistant Organisms: None Reported Past Surgical History: No Surgical Hx Reported Past Psychological History: Anxiety, Bipolar, Depression, Schizophrenia Smoking Status: Vaper Past Alcohol Use History: Occasional Past Drug Use History: None Reported General Exam - General Exam Comments Initial Comments: General: Appears in no acute distress. HEAD: Normal with no signs of head trauma. EYES: PERRLA, EOMI, conjunctiva normal, no discharge. ENT: Hearing grossly intact, normal oropharynx. RESPIRATORY: Clear breath sounds bilaterally. No wheezes, rales, or rhonchi. C/V: Regular rate and rhythm. S1 and S2 auscultated, no edema, peripheral pulses 2+ and intact throughout ABD: Abd is soft, nontender, nondistended EXT: Normal range of motion, no obvious deformity SKIN: No rashes or lesions observed on exposed skin. NEURO: Alert and oriented 4. No focal deficits. Course Vital Signs 11/14/21 11/15/21 19:38 00:15 Temperature 98 F Pulse Rate 105 H 102 H Respiratory 18 16 Rate Blood Pressure 145/83 121/87 O2 Sat by Pulse 98 98 Oximetry Medical Decision Making - Medical Decision Making Based on the patient's presentation and physical exam, he is having worsening delusions as well as suicidal ideations and auditory hallucinations. Requesting psychiatric evaluation. I do not believe that he requires any further laboratory studies or imaging at this time other than a BAT, which is 0, as well as a UDS which is negative. Patient is medical cleared for evaluation by psychiatry. Psychiatry determined the patient meets inpatient criteria. Patient will be admitted to inpatient psychiatry. Patient is admitted in stable condition. - Lab Data Lab Results 11/14/21 11/14/21 Range/Units 20:18 21:24 Urine Opiates Screen Not Detected (NotDetected) Ur Oxycodone Screen Not Detected (NotDetected) Urine Methadone Screen Not Detected (NotDetected) Ur Propoxyphene Screen Not Detected (NotDetected) Ur Barbiturates Screen Not Detected (NotDetected) U Tricyclic Antidepress Not Detected (NotDetected) Ur Phencyclidine Scrn Not Detected (NotDetected) Ur Amphetamines Screen Not Detected (NotDetected) U Methamphetamines Scrn Not Detected (NotDetected) U Benzodiazepines Scrn Not Detected (NotDetected) Urine Cocaine Screen Not Detected (NotDetected) U Marijuana (THC) Screen Not Detected (NotDetected) Coronavirus (PCR) Not Detected (Not Detectd) Disposition Clinical Impression: Encounter for psychiatric assessment, Suicidal ideation, Delusions, Auditory hallucination Disposition: ADMITTED IP TO THIS [facility] Condition: Stable Referrals: [facility] [Primary Care Provider] - 1-2 days
[2021-11-15] MEDS ORDERED: ACETAMINOPHEN TAB 325 MG TAB PO PRN (01:17)
[2021-11-15] MEDS ORDERED: MAGNESIUM HYDROXIDE 2,400 MG/10 ML CUP PO PRN (01:17)
[2021-11-15] MEDS ORDERED: MAG HYDROX/AL HYDROX/SIMETH 30 ML CUP PO PRN (01:17)
[2021-11-15] MEDS ORDERED: HALOPERIDOL LACTATE 5 MG/ML 1 ML VIAL IM PRN (01:17)
[2021-11-15] MEDS ORDERED: ALBUTEROL INHALER 60 PUFF/8 GM INHALER (MHU) INHALATION PRN (01:19)
[2021-11-15] MEDS ORDERED: LORazepam 2 MG/ML INJ IM PRN (01:23)
[2021-11-15] MEDS ORDERED: haloperidoL 5 MG TAB PO PRN (01:24)
[2021-11-15] MEDS: NICOTINE 14MG/24HR PATCH TRANSDERM SCH (01:32)
[2021-11-15 01:36] LABS: Appearance,Urine Clear (Clear); Bilirubin,Urine Negative (Negative); Blood,Urine Trace (Negative); Color,Urine Yellow; Glucose,Urine (UA) Negative (Negative); Ketones,Urine Negative (Negative); Leukocyte Esterase,Urine Negative (Negative); Mucus,Urine Rare /hpf; Nitrite,Urine Negative (Negative); Protein,Urine Negative (Negative); RBC,Urine 1 /hpf (0-5); Specific Gravity,Urine 1.012 (1.001-1.035); Urobilinogen,Urine <2.0 mg/dL (<2.0)
[2021-11-15] MEDS: BENZTROPINE MESYLATE 0.5 MG TAB PO SCH ×2 (08:03→20:28)
[2021-11-15] MEDS: PANTOPRAZOLE 40 MG TABLET PO SCH (08:03)
[2021-11-15] MEDS: LORazepam 1 MG TAB PO PRN ×2 (08:04→15:09)
[2021-11-15] MEDS ORDERED: NICOTINE 14MG/24HR PATCH TRANSDERM SCH (09:00)
--- NOTE | 2021-11-15 15:11 | P.HP ---
Psychiatric H&P - . H&P Date: 11/15/21 History & Physical: Allergies Allergy/AdvReac Type Severity Reaction Status Date / Time Penicillins Allergy Unknown Verified 11/15/21 02:37 Childhood risperidone From Risperdal Allergy Rash/Hives Verified 11/15/21 02:37 fluphenazine From Prolixin AdvReac Swelling Verified 11/15/21 02:37 Vital Signs Temp 98.0 F 11/15/21 01:02 Pulse 105 H 11/15/21 08:06 Resp 15 11/15/21 01:02 BP 124/81 11/15/21 08:06 Pulse Ox 98 11/15/21 01:02 Intake & Output 11/14/21 11/15/21 11/15/21 18:59 06:59 18:59 Weight 86.381 kg Laboratory Last Values Urine Color Yellow 11/15/21 00:00 Urine Appearance Clear (Clear) 11/15/21 00:00 Urine pH 6.0 (5.0-8.0) 11/15/21 00:00 Ur Specific [place] 1.012 (1.001-1.035) 11/15/21 00:00 Urine Protein Negative (Negative) 11/15/21 00:00 Urine Glucose (UA) Negative (Negative) 11/15/21 00:00 Urine Ketones Negative (Negative) 11/15/21 00:00 Urine Blood Trace (Negative) H 11/15/21 00:00 Urine Nitrite Negative (Negative) 11/15/21 00:00 Urine Bilirubin Negative (Negative) 11/15/21 00:00 Urine Urobilinogen <2.0 mg/dL (<2.0) 11/15/21 00:00 Ur Leukocyte Esterase Negative (Negative) 11/15/21 00:00 Urine RBC 1 /hpf (0-5) 11/15/21 00:00 Urine Mucus Rare /hpf (None) H 11/15/21 00:00 Urine Opiates Screen Not Detected (NotDetected) 11/14/21 20:18 Ur Oxycodone Screen Not Detected (NotDetected) 11/14/21 20:18 Urine Methadone Screen Not Detected (NotDetected) 11/14/21 20:18 Ur Propoxyphene Screen Not Detected (NotDetected) 11/14/21 20:18 Ur Barbiturates Screen Not Detected (NotDetected) 11/14/21 20:18 U Tricyclic Antidepress Not Detected (NotDetected) 11/14/21 20:18 Ur Phencyclidine Scrn Not Detected (NotDetected) 11/14/21 20:18 Ur Amphetamines Screen Not Detected (NotDetected) 11/14/21 20:18 U Methamphetamines Scrn Not Detected (NotDetected) 11/14/21 20:18 U Benzodiazepines Scrn Not Detected (NotDetected) 11/14/21 20:18 Urine Cocaine Screen Not Detected (NotDetected) 11/14/21 20:18 U Marijuana (THC) Screen Not Detected (NotDetected) 11/14/21 20:18 Coronavirus (PCR) Not Detected (Not Detectd) 11/14/21 21:24 11/15/21 14:30 IDENTIFYING DATA: Patient is a 31 yo male who currently lives with his sister and mother in a house and is currently receiving SSD. HPI: Patient presented to the hospital yesterday and according to ER report patient was apparently delusional, hearing voices telling him to kill himself. Patient has a chronic history of schizophrenia and currently follows up at [facility] with Dr. Holloway as a psychiatrist. Patient is currently on Haldol D long-acting injection 200 mg IM every 2 weeks along with Zyprexa and antidepressant. Patient was admitted voluntarily to the mental health unit. He was seen today by medical technical writer and agreeable to speak. He claims that she was feeling paranoid and spoke about "negative and evil voices" talking to him. He states that they're telling him that he is "never going to do anything with your life" and also telling him that he is "going to alf" and spoke about "killing myself". He states that this has been going on since September. He states that he has been taking his medications as prescribed. He states that he is still having paranoid thoughts mainly about his mother and sister. He states that he can hear his sister's boyfriends voice in his head telling him negative things. His UDS was negative. Patient claims that he is "mostly happy" however. Be very anxious and paranoid. He claims that he wants a [place] doesn't feel ready to get his old job back. He states that he has been taking his medications and his Haldol D was last given on November 10. He claims that his sleep has been fair and claims that since being admitted to the unit his auditory jacki lucinations have been improving. Patient denies any current suicidal or homicidal ideations intent or plan. At this time patient denies any visual hallucinations. Patient denies any flight of ideas racing thoughts and increased in goal directed behavior. Patient admits to using no recreational drugs except for vaping nicotine products PAST PSYCHIATRIC HISTORY: Patient states that his history of schizoaffective disorder. Patient is currently on Luvox, Cogentin, Haldol D, Zyprexa. Patient is admitted now admitted psychiatrically several times in the past. He currently follows up at [facility] at Dr. Dr. Hololway. Patient denies any history of suicide attempts in the past. PMH: As per medicine H&P ALLERGIES: as per EMR CHEMICAL DEPENDENCY HISTORY: as per HPI FAMILY PSYCHIATRIC/SUBSTANCE USE HISTORY: denies SOCIAL HISTORY: Patient was born and raised in [place], [place]. He states that he was then moved to [facility] [facility]. He claims that he completed high school and went to the [employer] and completed a degree in mechanical engineering. 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 He denies any legal history. He does not have any kids and currently lives with his sister and mother in a house and is receiving SSD. MENTAL STATUS EXAM: General Appearance: Patient appears to be overweight, wearing glasses, stated age is alert, appears to be anxious and paranoid. Patient appears to have fair hygiene and grooming. Behavior: Patient is seated without any agitated behavior. Appears to be somewhat paranoid and anxious Speech: Patient's speech is fluent and nonpressured. [place] Mood/Affect: Patient reports their mood is depressed and anxious, affect is congruent and constricted. Suicidality/Homicidality: Patient denies having any homicidal ideation intent or plan. Denies any suicidal ideations intent or plan Perceptions: Patient denies any visual hallucinations and is admitting to auditory hallucinations. Though content/process: [place], poverty of content. Memory and concentration: AOX3, grossly intact for the purposes of this session. Can spell "WORLD" backwards Judgment and insight: Chronically poor STRENGTHS/WEAKNESSES: strength is that patient is resilient. Weakness is that patient has poor judgment and has chronic mental illness INTELLECT: average IMPRESSIONS: Schizoaffective disorder, depressive type Nicotine dependence PLAN: -Patient is admitted under voluntary status to MHU for stabilization of psychiatric symptoms and safety. Patient has signed adult voluntary form and medication consent and is placed in patient's chart. -Medications : Will start patient on Zyprexa 15 mg daily at bedtime for mood stabilization/insomnia/psychosis, continue on with Haldol D 200 mg IM, last dose given on 11/10 and next dose will be due on 11/24. Continue with Luvox 100 mg daily for mood/anxiety, Cogentin 0.5 mg twice a day for EPS prophylaxis. -Ativan and Haldol PRN for agitation/aggression -Patient was informed of the risks, benefits and side effects of the medication and patient verbally consented to taking the medications. Patient signed med consent form and was placed in chart. -Internal Medicine consult to perform medical evaluation and physical. -NRT - nicotine patch -SW on board for discharge planning. Encourage patient to participate in groups to work on coping skills.
--- NOTE | 2021-11-15 15:54 | P.MDCNMH ---
History of Present Illness H&P Date: 11/15/21 Chief Complaint: Medical management 31 year man with medical history of exercise-induced asthma, GERD, schizophrenia presented with auditory hallucinations with suicidal content. Medicine is consulted for medical clearance as well as medical management by psychiatry team. Patient is doing well, has no complaints at this time. Denies pain. Tells me that his asthma is exercise-induced only and has not had any issues with this for several years. He does have bad acid reflux for which he takes Protonix daily. Otherwise, he denies fevers, chills, nausea, vomiting, chest pain, palpitations, syncope, presyncope, cough, dyspnea, abdominal pain, constipation, diarrhea, dysuria, dyschezia, numbness/weakness which is. My evaluation patient is afebrile, 124/81, 105, 98% on room air. UA shows trace blood, rare mucus, otherwise unremarkable. Urine tox screen was negative. Covid was negative. All Systems reviewed and pertinent positives and negatives noted in HPI, all other symptoms are negative Gen: awake, alert HEENT: normocephalic, atraumatic, good hearing acuity, moist mucous membranes Resp: good air exchange, breathing comfortably with no accessory muscle use CVS: good distal perfusion x 4, GI: soft, NTTP, ND : no SPT, no CVAT, leblanc catheter not present MSK: no pitting edema, no clubbing Neuro: non-focal, moving all extremities, cranial nerves II through XII are intact Psych: cooperative, euthymic mood Labs and imaging reviewed Assessment/plan: Exercise-induced asthma GERD with esophagitis -Albuterol when necessary -Restart Protonix daily Schizophrenia -Management per primary team Thank you for allowing us to care for this patient, a member of our team is available 10/04, please return via perfect serve should any questions or concerns arise. Past Medical History Past Medical History: No Reported History History of Any Multi-Drug Resistant Organisms: None Reported Past Surgical History: No Surgical Hx Reported Past Psychological History: Anxiety, Bipolar, Depression, Schizophrenia Smoking Status: Current every day smoker, Vaper Past Alcohol Use History: Occasional Past Drug Use History: None Reported Medications and Allergies Home Medications Medication Instructions Recorded Confirmed Type Albuterol Sulfate [Proair Hfa] 1 - 2 puff INHALATION RT-Q4H PRN 09/07/21 11/15/21 History Cabergoline 0.5 mg PO Q7D 09/07/21 11/15/21 History Benztropine Mesylate [Cogentin] 0.5 mg PO BID 30 Days tab 09/15/21 11/15/21 Rx Haloperidol Decanoate [Haldol D] 200 mg IM Q14D #1 each 09/15/21 11/15/21 Rx Nicotine 14Mg/24Hr Patch [Habitrol] 1 patch TRANSDERM DAILY 14 Days 09/15/21 11/15/21 Rx patch OLANZapine [ZyPREXA] 15 mg PO HS 30 Days tab 09/15/21 11/15/21 Rx Pantoprazole [Protonix] 40 mg PO AC-BRKFST 30 Days 09/15/21 11/15/21 Rx clonazePAM [KlonoPIN] 0.5 mg PO BID PRN 14 Days #28 tab 09/15/21 11/15/21 Rx fluvoxaMINE MALEATE 100 mg PO DAILY 30 Days tab 09/15/21 11/15/21 Rx Allergies Allergy/AdvReac Type Severity Reaction Status Date / Time Penicillins Allergy Unknown Verified 11/15/21 02:37 Childhood risperidone [From Risperdal] Allergy Rash/Hives Verified 11/15/21 02:37 fluphenazine [From Prolixin] AdvReac Swelling Verified 11/15/21 02:37 Physical Exam Osteopathic Statement: *. No significant issues noted on an osteopathic structural exam other than those noted in the History and Physical/Consult. Vitals: Vital Signs Temp Pulse Pulse Pulse Resp BP BP 11/15/21 08:06 105 H 124/81 11/15/21 01:02 98.0 F 102 H 15 11/15/21 00:15 102 H 16 121/87 11/14/21 19:38 98 F 105 H 18 145/83 BP Pulse Ox 11/15/21 08:06 11/15/21 01:02 143/84 98 11/15/21 00:15 98 11/14/21 19:38 98 Intake and Output 11/15/21 11/15/21 11/15/21 06:59 14:59 22:59 Other: Weight 86.381 kg Cranial Nerve Examination - Cranial Nerves Cranial Nerve II- Optic: Intact Cranial Nerve III- Oculomotor: Intact Cranial Nerve IV- Trochlear: Intact Cranial Nerve V- Trigeminal: Intact Cranial Nerve - Abducens: Intact Cranial Nerve VII- Facial: Intact Cranial Nerve VIII- Auditory: Intact Cranial Nerve IX- Glossopharyngeal: Intact Cranial Nerve X- Vagus: Intact Cranial Nerve XI- Accessory: Intact Cranial Nerve XII- Hypoglossal: Intact Results Labs: Abnormal Lab Results - Last 24 Hours (Table) 11/15/21 Range/Units 00:00 Urine Blood Trace H (Negative) Urine Mucus Rare H (None) /hpf
[2021-11-15] MEDS: OLANZapine 5 MG TAB PO SCH (20:28)
[2021-11-16] MEDS: NICOTINE 14MG/24HR PATCH TRANSDERM SCH (08:37)
[2021-11-16] MEDS: PANTOPRAZOLE 40 MG TABLET PO SCH (08:38)
[2021-11-16] MEDS: LORazepam 1 MG TAB PO PRN ×2 (08:38→18:43)
[2021-11-16] MEDS: BENZTROPINE MESYLATE 0.5 MG TAB PO SCH ×2 (08:38→20:56)
[2021-11-16 08:45] LABS: Basophils % (A) 1 %; Eosinophils # (A) 0.5 k/uL (0-0.7); Eosinophils % (A) 8 %; HCT 45.5 % (39.0-53.0); HGB 15.1 gm/dL (13.0-17.5); Lymphocytes # (A) 2.1 k/uL (1.0-4.8); Lymphocytes % (A) 34 %; MCH 28.5 pg (25.0-35.0); MCHC 33.1 g/dL (31.0-37.0); MCV 86.1 fL (80.0-100.0); Mean Platelet Volume 7.5; Monocytes # (A) 0.4 k/uL (0-1.0); Monocytes % (A) 7 %; Neutrophils % (A) 49 %; Platelet Count 211 k/uL (150-450); RBC 5.28 m/uL (4.30-5.90); RDW 13.7 % (11.5-15.5); WBC 6.1 k/uL (3.8-10.6)
[2021-11-16 08:57] LABS: ALT 37 U/L (4-49); AST 27 U/L (17-59); African American GFR (CKD) >90 (>60 ml/min/1.73 sqM); Albumin 4.2 g/dL (3.5-5.0); Alkaline Phosphatase 70 U/L (38-126); Anion Gap 8 mmol/L; Blood Urea Nitrogen 13 mg/dL (9-20); Calcium 9.2 mg/dL (8.4-10.2); Carbon Dioxide 27 mmol/L (22-30); Chloride 108 mmol/L (98-107); Glucose 98 mg/dL (74-99); Non-African American GFR(CKD) 89 (>60 ml/min/1.73 sqM); Potassium 4.4 mmol/L (3.5-5.1); Sodium 143 mmol/L (137-145); Total Bilirubin 0.6 mg/dL (0.2-1.3); Total Protein 6.9 g/dL (6.3-8.2)
--- NOTE | 2021-11-16 12:16 | P.PN ---
Progress Note - Text Progress Note Date: 11/16/21 Interval History: Patient was seen lying in his bed this morning and was directable and agreeable to speak with feature writer in the office. He was just waking up and was agreeable to speak a feature writer. He continues to have mild paranoia about the police and states that "they want to arrest me for walking in the hallway at night". He was however more appropriate and logical. He did not endorse any other delusions today. He asked several questions about how his medications work. He states that he wants to continue on fluvoxamine to help with his anxiety and mood. He claims that he was able to sleep fairly last night with the Zyprexa. He claims that he is no longer hearing voices on the unit. He states that he only went to some groups yesterday however did wake up this morning to go to eat breakfast. At this time patient denies any suicidal or homical ideations, intent or plan. Patient denies any auditory, visual hallucinations. Patient denies any side effects from the medications and has been compliant with meds. Mental Status Exam: General Appearance: Patient appears to be overweight, wearing glasses, stated age is alert, appears to be anxious. Less paranoid today. Patient appears to have fair hygiene and grooming. Behavior: Patient is seated without any agitated behavior. Appears to be somewhat paranoid today however this is improving. Speech: Patient's speech is fluent and nonpressured. [place], improving mildly Mood/Affect: Patient reports their mood is improving mildly, affect is congruent and constricted. Suicidality/Homicidality: Patient denies having any homicidal ideation intent or plan. Denies any suicidal ideations intent or plan Perceptions: Patient denies any visual hallucinations and is admitting to auditory hallucinations. Though content/process: [place], poverty of content. More goal oriented today. Continues to be paranoid, improving mildly. Memory and concentration: AOX3, grossly intact for the purposes of this session. Can spell "WORLD" backwards Judgment and insight: Chronically poor, improving mildly IMPRESSIONS: Schizoaffective disorder, depressive type Nicotine dependence Plan: -Patient continues to meet criteria for inpatient psychiatric admission for symptom stabilization and safety. Patient has signed adult voluntary form and medication consent and was placed in patient's chart. -Medications: Continue with Zyprexa 15 mg daily at bedtime for mood stabilization/insomnia/psychosis, Haldol D 200 mg IM, last dose given on 11/10 and next dose will be due on 11/24. Continue with Luvox 100 mg daily for mood/anxiety, Cogentin 0.5 mg twice a day for EPS prophylaxis. -When necessary Ativan and Haldol for agitation/aggression. -NRT - nicotine patch -SW on board for discharge planning. Encouraged the patient to participate in milieu. likely discharge in 1-2 days back home with [facility] follow up.
[2021-11-16] MEDS: OLANZapine 5 MG TAB PO SCH (20:56)
[2021-11-17] MEDS: PANTOPRAZOLE 40 MG TABLET PO SCH (08:47)
[2021-11-17] MEDS: BENZTROPINE MESYLATE 0.5 MG TAB PO SCH ×2 (08:48→21:15)
[2021-11-17] MEDS: NICOTINE 14MG/24HR PATCH TRANSDERM SCH (08:48)
[2021-11-17] MEDS: LORazepam 1 MG TAB PO PRN ×2 (08:49→21:16)
--- NOTE | 2021-11-17 11:35 | P.PN ---
Progress Note - Text Progress Note Date: 11/17/21 Interval History: Patient was seen lying in his bed this morning and was directable and agreeable to speak with mortgage or loan underwriter in the office. He was just waking up. He states that he went for breakfast earlier today. He claims that he was feeling tired this morning and claimed that he slept throughout the night fairly well. He states that his sleep is been improving well on the unit. He was asking about her friend coping skills he can use at home when he does hear voices and does get "stressed". He appears to be much more appropriate today and directable during conversation. He claims that his paranoia has been improving significantly. He denies any problems with his medications at this time. Things have fair appetite. Claims that his anxiety and mood have been improving. He claims that he is no longer hearing voices since being on the unit. He states that he only went to some groups yesterday and will plan to go to more today. At this time patient denies any suicidal or homical ideations, intent or plan. Patient denies any auditory, visual hallucinations. Patient denies any side effects from the medications and has been compliant with meds. Mental Status Exam: General Appearance: Patient appears to be overweight, wearing glasses, stated age is alert, appears to be less anxious. Less paranoid today. Patient appears to have fair hygiene and grooming. Behavior: Patient is seated without any agitated behavior. Appears to be redirectable and appropriate today. Speech: Patient's speech is fluent and nonpressured. [place], improving mildly Mood/Affect: Patient reports their mood is improving mildly, affect is congruent and constricted. Suicidality/Homicidality: Patient denies having any homicidal ideation intent or plan. Denies any suicidal ideations intent or plan Perceptions: Patient denies any visual hallucinations and is denying any auditory hallucinations. Though content/process: [place], more logical and goal oriented today. Paranoia, improving mildly. Memory and concentration: AOX3, grossly intact for the purposes of this session. Can spell "WORLD" backwards Judgment and insight: Chronically poor, improving mildly IMPRESSIONS: Schizoaffective disorder, depressive type Nicotine dependence Plan: -Patient continues to meet criteria for inpatient psychiatric admission for symptom stabilization and safety. Patient has signed adult voluntary form and medication consent and was placed in patient's chart. -Medications: Continue with Zyprexa 15 mg daily at bedtime for mood stabilization/insomnia/psychosis, Haldol D 200 mg IM, last dose given on 11/10 and next dose will be due on 11/24. Continue with Luvox 100 mg daily for mood/anxiety, Cogentin 0.5 mg twice a day for EPS prophylaxis. -When necessary Ativan and Haldol for agitation/aggression. -NRT - nicotine patch -SW on board for discharge planning. Encouraged the patient to participate in milieu. likely discharge tomorrow back home with [facility] follow up.
[2021-11-17] MEDS: OLANZapine 5 MG TAB PO SCH (21:15)
[2021-11-18 07:01] VITALS: BP 115/60; PULSE 73; RESP 16; TEMP 98
[2021-11-18] MEDS: BENZTROPINE MESYLATE 0.5 MG TAB PO SCH (08:35)
[2021-11-18] MEDS: NICOTINE 14MG/24HR PATCH TRANSDERM SCH (08:35)
[2021-11-18] MEDS: PANTOPRAZOLE 40 MG TABLET PO SCH (08:35)
--- NOTE | 2021-11-18 10:42 | P.DS ---
Providers Date of admission: 11/15/21 00:30 Expected date of discharge: 11/18/21 Attending physician: Haider Garcia MD Consults: 11/15/21 01:17 Consult Physician Routine Consulting Provider: Anjelica Foster Consult Reason/Comments: For H & P for Medical Follow UP Do you want consulting provider notified?: Yes Primary care physician: [facility] - Discharge Diagnosis(es) (1) Schizoaffective disorder, depressive type Current Visit: Yes Status: Acute Priority: High (2) Nicotine dependence Current Visit: Yes Status: Acute Priority: Low Hospital Course: Admission HPI: Admission note was completed by com writer "Patient is a 31 yo male who currently lives with his sister and mother in a house and is currently receiving SSD. Patient presented to the hospital yesterday and according to ER report patient was apparently delusional, hearing voices telling him to kill himself. Patient has a chronic history of schizophrenia and currently follows up at [facility] with Dr. Holloway as a psychiatrist. Patient is currently on Haldol D long-acting injection 200 mg IM every 2 weeks along with Zyprexa and antidepressant. Patient was admitted voluntarily to the mental health unit. He was seen today by com writer and agreeable to speak. He claims that she was feeling paranoid and spoke about "negative and evil voices" talking to him. He states that they're telling him that he is "never going to do anything with your life" and also telling him that he is "going to retirement" and spoke about "killing myself". He states that this has been going on since September. He states that he has been taking his medications as prescribed. He states that he is still having paranoid thoughts mainly about his mother and sister. He states that he can hear his sister's boyfriends voice in his head telling him negative things. His UDS was negative. Patient claims that he is "mostly happy" however. Be very anxious and paranoid. He claims that he wants a [employer] doesn't feel ready to get his old job back. He states that he has been taking his medications and his Haldol D was last given on November 10. He claims that his sleep has been fair and claims that since being admitted to the unit his auditory hallucinations have been improving. Patient denies any current suicidal or homicidal ideations intent or plan. At this time patient denies any visual hallucinations. Patient denies any flight of ideas racing thoughts and increased in goal directed behavior. Patient admits to using no recreational drugs except for vaping nicotine products" Hospital course: Upon admission to the unit patient was directable and agreeable to commence treatment and signed adult voluntary form. Patient got along well with other patients on the unit and followed unit protocol. Patient was compliant with the medications and denied any side effects throughout hospital course. Patient was started on his home dose of Zyprexa 15 mg daily at bedtime for mood stabilization/insomnia/psychosis. Patient had received Haldol D2 100 mg IM last dose on 11/10 and will be due for his next dose on 11/24 every 2 weeks. Continued with the Luvox 100 mg daily for mood/anxiety and also Cogentin 0.5 mg twice a day for EPS prophylaxis.. Patient spoke of his stressors and engaged in therapy both group and individual. Patient was also seen by medical team for history and physical exam. Throughout the course of the hospitalization patient gradually improved with regards to mood, anxiety, sleep and returned back to their baseline level of functioning. Patient does have a baseline of chronic paranoia however this improved significantly while being on the unit. On the day of discharge patient denied any suicidal or homicidal ideations intent or plan denied any auditory or visual hallucinations. Patient endorsed wanting to live for his health and family. The patient denied any access to guns or weapons. Patient denied any paranoia and did not endorse any delusions. Patient does not have a significant history of substance abuse and was counseled on abstaining from all substances including alcohol and marijuana. Patient was also counseled on the medications and need for regular compliance and was encouraged to follow-up with their outpatient appointment for mental health and also for primary care. Prior to discharge a family meeting will be arranged by social services analyst to answer any questions and ensure safety upon discharge. Mental status exam: General Appearance: Patient appears to be stated age is alert, pleasant, and cooperative. Patient is in no acute distress and has improved hygiene and grooming Behavior: Patient is calmly seated without any agitated behavior. Speech: Patient's speech is fluent and nonpressured. Mood/Affect: Patient reports their mood is "good", affect is congruent and constricted Suicidality/Homicidality: Patient denies having any suicidal or homicidal ideation intent or plan. Perceptions: Patient denies any auditory or visual hallucinations. Though content/process: There is no evidence of any delusional thought content and thought process is linear and goal-directed. Baseline chronic paranoia that has improved significantly. Memory and concentration: AOX3, grossly intact for the purposes of this session. Can spell "WORLD" backwards correctly. Judgment and insight: chronically poor, however has improved with guarded prognosis Impression: Schizoaffective disorder, depressive type Nicotine dependence Plan: -Continue with discharge today as patient has improved and stabilized psychiatrically and is not currently an imminent threat to himself and/or others. Patient will remain at chronically elevated risk for harm to self and/or others due to his chronic mental illness. -Continue medications: Continue Zyprexa 15 mg daily at bedtime for mood stabilization/insomnia/psychosis. Patient had already received Haldol D2 100 mg IM last dose given on 11/10 and next dose will be due on 11/24 every 2 weeks. The Haldol D will be given by [facility]. Continue with Luvox 100 mg daily for mood/anxiety and also Cogentin 0.5 mg twice a day for EPS prophylaxis. -Patient was counseled on the need for medication compliance and appropriate follow-up at mental health and also primary care for medical issues. Patient verbalized understanding and agreed. -Social work to arrange for and conduct family meeting to ensure safety upon discharge and answer any questions/concerns. Social work also to arrange for patients follow up appointments with [facility] for psychiatric care along with follow up with primary care provider. -Patient counseled on abstaining from recreational drugs and marijuana and alcohol. Was informed/educated on the adverse effects on their physical and mental health. Patient verbally agreed and understood. -Patient was instructed to return to the hospital or seek immediate medical care if their psychiatric or medical symptoms do worsen or reoccur. Allergies Allergy/AdvReac Type Severity Reaction Status Date / Time Penicillins Allergy Unknown Verified 11/15/21 02:37 Childhood risperidone [From Risperdal] Allergy Rash/Hives Verified 11/15/21 02:37 fluphenazine [From Prolixin] AdvReac Swelling Verified 11/15/21 02:37 Laboratory Results WBC 6.1 k/uL (3.8-10.6) 11/16/21 08:13 RBC 5.28 m/uL (4.30-5.90) 11/16/21 08:13 Hgb 15.1 gm/dL (13.0-17.5) 11/16/21 08:13 Hct 45.5 % (39.0-53.0) 11/16/21 08:13 MCV 86.1 fL (80.0-100.0) 11/16/21 08:13 MCH 28.5 pg (25.0-35.0) 11/16/21 08:13 MCHC 33.1 g/dL (31.0-37.0) 11/16/21 08:13 RDW 13.7 % (11.5-15.5) 11/16/21 08:13 Plt Count 211 k/uL (150-450) 11/16/21 08:13 MPV 7.5 11/16/21 08:13 Neutrophils % 49 % 11/16/21 08:13 Lymphocytes % 34 % 11/16/21 08:13 Monocytes % 7 % 11/16/21 08:13 Eosinophils % 8 % 11/16/21 08:13 Basophils % 1 % 11/16/21 08:13 Neutrophils # 3.0 k/uL (1.3-7.7) 11/16/21 08:13 Lymphocytes # 2.1 k/uL (1.0-4.8) 11/16/21 08:13 Monocytes # 0.4 k/uL (0-1.0) 11/16/21 08:13 Eosinophils # 0.5 k/uL (0-0.7) 11/16/21 08:13 Basophils # 0.0 k/uL (0-0.2) 11/16/21 08:13 Sodium 143 mmol/L (137-145) 11/16/21 08:13 Potassium 4.4 mmol/L (3.5-5.1) 11/16/21 08:13 Chloride 108 mmol/L (98-107) H 11/16/21 08:13 Carbon Dioxide 27 mmol/L (22-30) 11/16/21 08:13 Anion Gap 8 mmol/L 11/16/21 08:13 BUN 13 mg/dL (9-20) 11/16/21 08:13 Creatinine 1.09 mg/dL (0.66-1.25) 11/16/21 08:13 Est GFR (CKD-EPI)AfAm >90 (>60 ml/min/1.73 sqM) 11/16/21 08:13 Est GFR (CKD-EPI)NonAf 89 (>60 ml/min/1.73 sqM) 11/16/21 08:13 Glucose 98 mg/dL (74-99) 11/16/21 08:[address] Glu mg/dL 100 11/16/21 08:13 Hemoglobin A1c 5.1 % (0.0-6.0) 11/16/21 08:13 Calcium 9.2 mg/dL (8.4-10.2) 11/16/21 08:13 Total Bilirubin 0.6 mg/dL (0.2-1.3) 11/16/21 08:13 AST 27 U/L (17-59) 11/16/21 08:13 ALT 37 U/L (4-49) 11/16/21 08:13 Alkaline Phosphatase 70 U/L (38-126) 11/16/21 08:13 Total Protein 6.9 g/dL (6.3-8.2) 11/16/21 08:13 Albumin 4.2 g/dL (3.5-5.0) 11/16/21 08:13 TSH 0.649 mIU/L (0.465-4.680) 11/16/21 08:13 Urine Color Yellow 11/15/21 00:00 Urine Appearance Clear (Clear) 11/15/21 00:00 Urine pH 6.0 (5.0-8.0) 11/15/21 00:00 Ur Specific Premium 1.012 (1.001-1.035) 11/15/21 00:00 Urine Protein Negative (Negative) 11/15/21 00:00 Urine Glucose (UA) Negative (Negative) 11/15/21 00:00 Urine Ketones Negative (Negative) 11/15/21 00:00 Urine Blood Trace (Negative) H 11/15/21 00:00 Urine Nitrite Negative (Negative) 11/15/21 00:00 Urine Bilirubin Negative (Negative) 11/15/21 00:00 Urine Urobilinogen <2.0 mg/dL (<2.0) 11/15/21 00:00 Ur Leukocyte Esterase Negative (Negative) 11/15/21 00:00 Urine RBC 1 /hpf (0-5) 11/15/21 00:00 Urine Mucus Rare /hpf (None) H 11/15/21 00:00 Urine Opiates Screen Not Detected (NotDetected) 11/14/21 20:18 Ur Oxycodone Screen Not Detected (NotDetected) 11/14/21 20:18 Urine Methadone Screen Not Detected (NotDetected) 11/14/21 20:18 Ur Propoxyphene Screen Not Detected (NotDetected) 11/14/21 20:18 Ur Barbiturates Screen Not Detected (NotDetected) 11/14/21 20:18 U Tricyclic Antidepress Not Detected (NotDetected) 11/14/21 20:18 Ur Phencyclidine Scrn Not Detected (NotDetected) 11/14/21 20:18 Ur Amphetamines Screen Not Detected (NotDetected) 11/14/21 20:18 U Methamphetamines Scrn Not Detected (NotDetected) 11/14/21 20:18 U Benzodiazepines Scrn Not Detected (NotDetected) 11/14/21 20:18 Urine Cocaine Screen Not Detected (NotDetected) 11/14/21 20:18 U Marijuana (THC) Screen Not Detected (NotDetected) 11/14/21 20:18 Coronavirus (PCR) Not Detected (Not Detectd) 11/14/21 21:24 Vital Signs Temp 98 F 11/18/21 06:29 Pulse 73 11/18/21 06:29 Resp 16 11/18/21 06:29 BP 115/60 11/18/21 06:29 Pulse Ox 97 11/18/21 06:29 Patient Condition at Discharge: Stable Plan - Discharge Summary New Discharge Prescriptions: New Nicotine 14Mg/24Hr Patch [Habitrol] 1 patch TRANSDERM DAILY 14 Days patch Pantoprazole [Protonix] 40 mg PO AC-BRKFST 30 Days tab OLANZapine [ZyPREXA] 15 mg PO HS 30 Days tab Continue Benztropine Mesylate [Cogentin] 0.5 mg PO BID 30 Days tab Haloperidol Decanoate [Haldol D] 200 mg IM Q14D #1 each Albuterol Sulfate [Proair Hfa] 1 - 2 puff INHALATION RT-Q4H PRN PRN Reason: Shortness Of Breath Cabergoline 0.5 mg PO Q7D fluvoxaMINE MALEATE 100 mg PO DAILY 30 Days tab Discontinued Nicotine 14Mg/24Hr Patch [Habitrol] 1 patch TRANSDERM DAILY 14 Days patch OLANZapine [ZyPREXA] 15 mg PO HS 30 Days tab clonazePAM [KlonoPIN] 0.5 mg PO BID PRN 14 Days #28 tab PRN Reason: Anxiety Pantoprazole [Protonix] 40 mg PO AC-BRKFST 30 Days Discharge Medication List Albuterol Sulfate [Proair Hfa] 1 - 2 puff INHALATION RT-Q4H PRN 09/07/21 [History] Cabergoline 0.5 mg PO Q7D 09/07/21 [History] Benztropine Mesylate [Cogentin] 0.5 mg PO BID 30 Days tab 11/18/21 [Rx] Haloperidol Decanoate [Haldol D] 200 mg IM Q14D #1 each 11/18/21 [Rx] Nicotine 14Mg/24Hr Patch [Habitrol] 1 patch TRANSDERM DAILY 14 Days patch 11/18/21 [Rx] OLANZapine [ZyPREXA] 15 mg PO HS 30 Days tab 11/18/21 [Rx] Pantoprazole [Protonix] 40 mg PO AC-BRKFST 30 Days tab 11/18/21 [Rx] fluvoxaMINE MALEATE 100 mg PO DAILY 30 Days tab 11/18/21 [Rx] Follow up Appointment(s)/Referral(s): [facility] [Outside] - 11/25/21 10:00 am (11-25-21 at 10:[address] Holloway at [facility] ) [facility] - 1-2 days Patient Instructions/Handouts: How to Stop Smoking (DC), Brief Psychotic Disorder (DC), Schizoaffective Disorder (GEN), Help Prevent Suicide (DC) Activity/Diet/Wound Care/Special Instructions: Activity and diet as tolerated. Avoid the use of street drugs and alcohol. Take all medications as prescribed. When you are in need of refills on your medications please contact your medical provider and/or outpatient psychiatrist to have this done. Please go to scheduled outpatient appointment for aftercare treatment. If symptoms return or become worse, call the crisis line at [phone] and/or go to the nearest emergency room for evaluation Discharge Disposition: HOME SELF-CARE
== END 2021-11-18 12:55 | disposition home or self-care (01) | DRG 880 ==
LOC: EC 19:37 → 3MHU 11-15 00:30
PROVIDERS: ADMIT Psychiatry & Neurology Psychiatry; ATTEND Psychiatry & Neurology Psychiatry
DX: R45.851 Suicidal ideations (principal); Z20.822 Contact with and (suspected) exposure to COVID-19; F25.1 Schizoaffective disorder, depressive type; F31.9 Bipolar disorder, unspecified; F41.9 Anxiety disorder, unspecified; K21.00 Gastro-esophageal reflux disease with esophagitis, without bleeding; J45.990 Exercise induced bronchospasm; G47.00 Insomnia, unspecified; F17.200 Nicotine dependence, unspecified, uncomplicated; Z88.0 Allergy status to penicillin; Z88.8 Allergy status to other drugs, medicaments and biological substances
CPT/HCPCS: 80053; 80306; 81001; 83036; 84443; 85025; 87635; 99285

== ENCOUNTER 2022-02-15 21:14 | Emergency (ER) | payer MEDICARE, MEDICAID ==
--- NOTE | 2022-02-15 23:02 | ED ---
Psych HPI - General Chief Complaint: Psychiatric Symptoms Stated Complaint: Mental health eval Time Seen by Provider: 02/15/22 22:46 Source: patient Mode of arrival: ambulatory - Related Data Home Medications Medication Instructions Recorded Confirmed Albuterol Sulfate [Proair Hfa] 1 - 2 puff INHALATION RT-Q4H PRN 09/07/21 11/15/21 Cabergoline 0.5 mg PO Q7D 09/07/21 11/15/21 Previous Rx's Medication Instructions Recorded Benztropine Mesylate [Cogentin] 0.5 mg PO BID 30 Days tab 11/18/21 Haloperidol Decanoate [Haldol D] 200 mg IM Q14D #1 each 11/18/21 Nicotine 14Mg/24Hr Patch [Habitrol] 1 patch TRANSDERM DAILY 14 Days 11/18/21 patch OLANZapine [ZyPREXA] 15 mg PO HS 30 Days tab 11/18/21 Pantoprazole [Protonix] 40 mg PO AC-BRKFST 30 Days tab 11/18/21 clonazePAM [KlonoPIN] 1 mg PO DAILY PRN 3 Days #3 tab 11/18/21 fluvoxaMINE MALEATE 100 mg PO DAILY 30 Days tab 11/18/21 Allergies Allergy/AdvReac Type Severity Reaction Status Date / Time Penicillins Allergy Unknown Verified 11/15/21 02:37 Childhood risperidone [From Risperdal] Allergy Rash/Hives Verified 11/15/21 02:37 fluphenazine [From Prolixin] AdvReac Swelling Verified 11/15/21 02:37 Review of Systems ROS Statement: Those systems with pertinent positive or pertinent negative responses have been documented in the HPI. ROS Other: All systems not noted in ROS Statement are negative. Past Medical History Past Medical History: No Reported History History of Any Multi-Drug Resistant Organisms: None Reported Past Surgical History: No Surgical Hx Reported Past Psychological History: Anxiety, Bipolar, Depression, Schizophrenia Smoking Status: Current every day smoker, Vaper Past Alcohol Use History: Occasional Past Drug Use History: None Reported General Exam Limitations: no limitations Course Vital Signs 02/15/22 22:04 Temperature 98.2 F Pulse Rate 81 Respiratory 16 Rate Blood Pressure 142/94 O2 Sat by Pulse 98 Oximetry Medical Decision Making - Lab Data Lab Results 02/16/22 Range/Units 00:00 Urine Opiates Screen Not Detected (NotDetected) Ur Oxycodone Screen Not Detected (NotDetected) Urine Methadone Screen Not Detected (NotDetected) Ur Propoxyphene Screen Not Detected (NotDetected) Ur Barbiturates Screen Not Detected (NotDetected) U Tricyclic Antidepress Not Detected (NotDetected) Ur Phencyclidine Scrn Not Detected (NotDetected) Ur Amphetamines Screen Not Detected (NotDetected) U Methamphetamines Scrn Not Detected (NotDetected) U Benzodiazepines Scrn Not Detected (NotDetected) Urine Cocaine Screen Not Detected (NotDetected) U Marijuana (THC) Screen Not Detected (NotDetected) Disposition Clinical Impression: Depression, Psychosis Disposition: HOME SELF-CARE Condition: Good Is patient prescribed a controlled substance at d/c from ED?: No Referrals: [facility] [Primary Care Provider] - 1-2 days
[2022-02-16 00:56] LABS: Amphetamine Screen,Urine Not Detected (NotDetected); Barbiturate Screen,Urine Not Detected (NotDetected); Benzodiazepines Screen,Urine Not Detected (NotDetected); Cocaine Screen,Urine Not Detected (NotDetected); Methadone Screen, Urine Not Detected (NotDetected); Opiate Screen,Urine Not Detected (NotDetected); Oxycodone Screen, Urine Not Detected (NotDetected); Phencyclidine Screen,Urine Not Detected (NotDetected); Tricyclic Antidepressant,Urine Not Detected (NotDetected); Urn Cannabinoid Scrn Not Detected (NotDetected)
[2022-02-16 03:49] VITALS: BP 162/78; PULSE 89; RESP 18; TEMP 98.9
== END 2022-02-16 03:49 | disposition home or self-care (01) ==
LOC: EEVIPCON 21:14 → EC 21:14
DX: F32.A Depression, unspecified (principal); F29 Unspecified psychosis not due to a substance or known physiological condition; F41.9 Anxiety disorder, unspecified; F20.9 Schizophrenia, unspecified; F17.290 Nicotine dependence, other tobacco product, uncomplicated; Z72.89 Other problems related to lifestyle; Z88.0 Allergy status to penicillin; Z88.8 Allergy status to other drugs, medicaments and biological substances
CPT/HCPCS: 80306; 82075; 99283

== ENCOUNTER 2023-10-06 11:17 | Inpatient (IN) | payer MEDICARE, MEDICAID, OTHER ==
[2023-10-06] MEDS ORDERED: LORazepam 2 MG/ML INJ IM STA (12:36)
[2023-10-06] MEDS ORDERED: ZIPRASIDONE 20 MG VIAL IM STA (12:36)
--- NOTE | 2023-10-06 12:38 | ED ---
Psych HPI - General Chief Complaint: Psychiatric Symptoms Stated Complaint: petition Time Seen by Provider: 10/06/23 11:39 Source: patient, police, RN notes reviewed Mode of arrival: ambulatory Limitations: no limitations - History of Present Illness Initial Comments: 32-year-old male presents emergency Department with chief complaint of needs psychiatric evaluation patient brought in with police from longterm patient reportedly has not been taking his medications believe there is acute psychotic. Patient does admit to being depressed, suicidal. - Related Data Home Medications Medication Instructions Recorded Confirmed Cabergoline 0.5 mg PO DIRECTED 09/07/21 10/06/23 DULoxetine HCL [Cymbalta] 60 mg PO HS 10/06/23 10/06/23 Pantoprazole [Protonix] 40 mg PO QAM 10/06/23 10/06/23 QUEtiapine [SEROquel] 200 mg PO DAILY 10/06/23 10/06/23 Allergies Allergy/AdvReac Type Severity Reaction Status Date / Time Penicillins Allergy Unknown Verified 10/06/23 13:31 Childhood risperidone [From Risperdal] Allergy Rash/Hives Verified 10/06/23 13:31 fluphenazine [From Prolixin] AdvReac Swelling Verified 10/06/23 13:31 Review of Systems ROS Statement: Those systems with pertinent positive or pertinent negative responses have been documented in the HPI. ROS Other: All systems not noted in ROS Statement are negative. Past Medical History Past Medical History: No Reported History History of Any Multi-Drug Resistant Organisms: None Reported Past Surgical History: No Surgical Hx Reported Past Psychological History: Anxiety, Bipolar, Depression, Schizophrenia Smoking Status: Current every day smoker, Vaper Past Alcohol Use History: Occasional Past Drug Use History: None Reported General Exam Limitations: no limitations General appearance: alert, in no apparent distress Head exam: Present: atraumatic, normocephalic, normal inspection Eye exam: Present: normal appearance, PERRL, EOMI. Absent: scleral icterus, conjunctival injection, periorbital swelling ENT exam: Present: normal exam, mucous membranes moist Neck exam: Present: normal inspection. Absent: tenderness, meningismus, lymphadenopathy Respiratory exam: Present: normal lung sounds bilaterally. Absent: respiratory distress, wheezes, rales, rhonchi, stridor Cardiovascular Exam: Present: regular rate, normal rhythm, normal heart sounds. Absent: systolic murmur, diastolic murmur, rubs, gallop, clicks Course Vital Signs 10/06/23 10/06/23 11:32 11:41 Temperature 98.2 F Pulse Rate 106 H 78 Respiratory 20 16 Rate Blood Pressure 110/83 135/88 O2 Sat by Pulse 99 98 Oximetry Medical Decision Making - Medical Decision Making Was pt. sent in by a medical professional or institution (, PA, REGULATORY AFFAIRS DIRECTOR, urgent care, hospital, or [facility]...) When possible be specific @ -No Did you speak to anyone other than the patient for history (EMS, parent, family, police, friend...)? What history was obtained from this source @ -No Did you review nursing and triage notes (agree or disagree)? Why? @ -I reviewed and agree with nursing and triage notes Were old charts reviewed (outside hosp., previous admission, EMS record, old EKG, old radiological studies, urgent care reports/EKG's, [facility] records)? Report findings @ -No old charts were reviewed Differential Diagnosis (chest pain, altered mental status, abdominal pain women, abdominal pain men, vaginal bleeding, weakness, fever, dyspnea, syncope, headache, dizziness, GI bleed, back pain, seizure, CVA, palpatations, mental health, musculoskeletal)? @ -Differential Mental Health Depression, anxiety, bipolar, psychosis, schizophrenia, borderline personality, situational depression, adjustment disorder, behavioral disorder, brain tumor, malingering, substance abuse, encephalopathy, medication reaction, dementia, hypothyroidism, degenerative neurologic disorder, lupus.... This is not meant to be all-inclusive list EKG interpreted by me (3pts min.). @ -None X-rays interpreted by me (1pt min.). @ -None done CT interpreted by me (1pt min.). @ -None done U/S interpreted by me (1pt. min.). @ -None done What testing was considered but not performed or refused? (CT, X-rays, U/S, labs)? Why? @ -None What meds were considered but not given or refused? Why? @ -None Did you discuss the management of the patient with other professionals (professionals i.e. , PA, REGULATORY AFFAIRS DIRECTOR, lab, RT, psych nurse, healthcare social worker, cargo tank mechanic, teacher, flight radio officer, pillowcase cleaner)? Give summary @ -[EPS evaluation patient and recommended inpatient treatment Was smoking cessation discussed for >3mins.? @ -No Was critical care preformed (if so, how long)? @ -No Were there social determinants of health that impacted care today? How? (Homelessness, low income, unemployed, alcoholism, drug addiction, transportation, low edu. Level, literacy, decrease access to med. care, longterm, rehab)? @ -No Was there de-escalation of care discussed even if they declined (Discuss DNR or withdrawal of care, Hospice)? DNR status @ -No What co-morbidities impacted this encounter? (DM, HTN, Smoking, COPD, CAD, Cancer, CVA, ARF, Chemo, Hep., AIDS, mental health diagnosis, sleep apnea, morbid obesity)? @ -Psychiatric history Was patient admitted / discharged? Hospital course, mention meds given and route, prescriptions, significant lab abnormalities, going to OR and other pertinent info. @ -Admitted to psychiatric services Undiagnosed new problem with uncertain prognosis? @ -No Drug Therapy requiring intensive monitoring for toxicity (Heparin, Nitro, Insulin, Cardizem)? @ -No Were any procedures done? @ -No Diagnosis/symptom? @ -Psychosis, suicidal ideation Acute, or Chronic, or Acute on Chronic? @ -Acute Uncomplicated (without systemic symptoms) or Complicated (systemic symptoms)? @ -Complicated Side effects of treatment? @ -No Exacerbation, Progression, or Severe Exacerbation? @ -No Poses a threat to life or bodily function? How? (Chest pain, [place], [place], pneumonia, PE, COPD, DKA, ARF, appy, cholecystitis, CVA, Diverticulitis, Homicidal, Suicidal, threat to staff... and all critical care pts) @ -[Yes patient is suicidal - Lab Data Lab Results 10/06/23 Range/Units 12:36 SARS-CoV-2 (PCR) Not Detected (Not Detectd) Disposition Clinical Impression: Acute psychosis, Suicidal ideation Disposition: TRANSFER TO PSYCH HOSP/UNIT Time of Disposition: 12:37
[2023-10-06] MEDS ORDERED: MAGNESIUM HYDROXIDE 2,400 MG/30 ML CUP PO PRN (15:13)
[2023-10-06] MEDS ORDERED: haloperidoL 5 MG TAB PO PRN (15:13)
[2023-10-06] MEDS ORDERED: ACETAMINOPHEN TAB 325 MG TAB PO PRN (15:13)
[2023-10-06] MEDS ORDERED: HALOPERIDOL LACTATE 5 MG/ML 1 ML VIAL IM PRN (15:13)
[2023-10-06] MEDS ORDERED: LORazepam 2 MG/ML INJ IM PRN (15:13)
[2023-10-06 18:29] LABS: Appearance,Urine Clear (Clear); Bilirubin,Urine Negative (Negative); Blood,Urine Negative (Negative); Color,Urine Yellow; Glucose,Urine (UA) Negative (Negative); Ketones,Urine 1+ (Negative); Leukocyte Esterase,Urine Negative (Negative); Nitrite,Urine Negative (Negative); PH, Urine 5.5 (5.0-8.0); Protein,Urine Trace (Negative); Specific Gravity,Urine 1.024 (1.001-1.035); Urobilinogen,Urine <2.0 mg/dL (<2.0)
[2023-10-06 19:03] LABS: Amphetamine Screen,Urine Not Detected (NotDetected); Barbiturate Screen,Urine Not Detected (NotDetected); Benzodiazepines Screen,Urine Detected (NotDetected); Cocaine Screen,Urine Not Detected (NotDetected); Methadone Screen, Urine Not Detected (NotDetected); Opiate Screen,Urine Not Detected (NotDetected); Oxycodone Screen, Urine Not Detected (NotDetected); Phencyclidine Screen,Urine Not Detected (NotDetected); Tricyclic Antidepressant,Urine Not Detected (NotDetected); Urn Cannabinoid Scrn Not Detected (NotDetected)
[2023-10-06] MEDS: LORazepam 1 MG TAB PO PRN (21:30)
[2023-10-07] MEDS: LORazepam 1 MG TAB PO PRN (15:42)
[2023-10-07] MEDS ORDERED: chlorproMAZINE 25 MG/ML 2 ML AMP IM PRN (16:05)
[2023-10-07] MEDS: chlorproMAZINE 25 MG TAB PO PRN (17:11)
[2023-10-07] MEDS: clonazePAM 0.5 MG TAB PO SCH (20:31)
[2023-10-07] MEDS ORDERED: QUEtiapine 100 MG TAB PO SCH (21:00)
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
--- NOTE | 2023-10-07 23:26 | P.CONS ---
History of Present Illness - Reason for Consult Consult date: 10/07/23 - History of Present Illness The patient is a 32-year-old male with a PMH of exercise-induced asthma, schizophrenia, and GERD presented to the emergency room from assisted for possible psychosis and depressive thoughts. The patient was admitted to the mental health unit where he was seen and evaluated while accompanied by mental health unit RN. Patient did not have any specific physical complaints but appeared to be actively psychotic at the time of interview. He denied any substance use. He was not answering questions appropriately. Review of systems: Pertinent positives and negatives as discussed in HPI, a complete review of systems was performed and all other systems are negative. Physical examination: General: non toxic, no distress, appears at stated age, normal weight Derm: no unusual rashes/lesions, no unusual ecchymoses, warm, dry Head: atraumatic, normocephalic, symmetric Eyes: EOMI, no lid lag, anicteric sclera ENT: Nose and ears atraumatic Neck: trachea midline, supple Mouth: Refused refused Cardiovascular: Refused Lungs: Refused Abdominal: Refused evaluation Ext: no gross muscle atrophy, no contractures, Neuro: No gross focal neuro deficits noted Psych: Actively psychotic, disorganized thought process Assessment: Chronic conditions: GERD, Exercise induced asthma Psychosis Imaging: None performed Data Review: WBC count 6.1, hemoglobin 15.1, platelets 211, sodium 143, potassium 4.4, BUN 13, creatinine 1.09, UA unremarkable, urine tox 40 positive for benzodiazepines Plan: C/w home protonix and albuterol prn Defer management of psychosis a primary psychiatry service Thank you for allowing us to participate in the care of this patient. We will follow peripherally. Do not hesitate to contact us with questions. Someone can be reached from the [facility] hospitalist group at all hours of the day at [phone]. Past Medical History Past Medical History: No Reported History History of Any Multi-Drug Resistant Organisms: None Reported Past Surgical History: No Surgical Hx Reported Past Psychological History: Anxiety, Bipolar, Depression, Schizophrenia Smoking Status: Current every day smoker, Vaper Past Alcohol Use History: None Reported Additional Past Alcohol Use History / Comment(s): Has been in assisted for one year. Past Drug Use History: None Reported Medications and Allergies Home Medications Medication Instructions Recorded Confirmed Type Cabergoline 0.5 mg PO DIRECTED 09/07/21 10/06/23 History DULoxetine HCL [Cymbalta] 60 mg PO HS 10/06/23 10/06/23 History Pantoprazole [Protonix] 40 mg PO QAM 10/06/23 10/06/23 History QUEtiapine [SEROquel] 200 mg PO DAILY 10/06/23 10/06/23 History Allergies Allergy/AdvReac Type Severity Reaction Status Date / Time Penicillins Allergy Unknown Verified 10/06/23 13:31 Childhood risperidone [From Risperdal] Allergy Rash/Hives Verified 10/06/23 13:31 fluphenazine [From Prolixin] AdvReac Swelling Verified 10/06/23 13:31 haloperidol [From Haldol] AdvReac Akathisia Verified 10/06/23 19:00 olanzapine [From Zyprexa] AdvReac Hyperprolac Verified 10/06/23 19:01 tinemia Physical Exam Vitals: Vital Signs Temp Pulse Resp BP Pulse Ox 10/07/23 06:01 98.0 F 115 H 18 117/75 98
[2023-10-08] MEDS: PANTOPRAZOLE 40 MG TABLET PO SCH (11:02)
[2023-10-08] MEDS: clonazePAM 0.5 MG TAB PO SCH ×4 (11:02→21:53)
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
[2023-10-08] MEDS ORDERED: QUEtiapine 100 MG TAB PO SCH (21:00)
[2023-10-09] MEDS: PANTOPRAZOLE 40 MG TABLET PO SCH (08:41)
[2023-10-09] MEDS: clonazePAM 0.5 MG TAB PO SCH ×3 (08:41→21:19)
[2023-10-09] MEDS ORDERED: traZODone HCL 100 MG TAB PO PRN (13:01)
--- NOTE | 2023-10-09 13:07 | P.PN ---
Progress Note - Text Progress Note Date: 10/09/23 Interval history: Patient was seen today wandering the hallways, glaring at food writer, was persistent in speaking with food writer today. Patient was agreeable to speak in the lounge with a web site designer present. Patient appears to be responding to internal stimuli, endorsing paranoia, wanted to be in front of the cameras. He was fairly disorganized in his thought content and process. He spoke about different signals that he was getting in alf and about the code that he was dealing with. He also spoke about "different dimensions". He was fairly hostile with food writer and argumentative. Very poor insight and judgment. Poor impulse control. Air Pumper attempted to speak with patient about medications however patient was uncooperative and did not fully agreed to having his medications adjusted. At this time he is denying any suicidal or homicidal ideations, denying any auditory or visual hallucinations. He did make a racial statement towards food writer. MENTAL STATUS EXAM: General Appearance: Patient appears to be stated age is alert, adequate hygiene. Wearing glasses, facial hair, Behavior: Patient states intensely, is intimidating, uncooperative and argumentative. Speech: Patient's speech is fluent but disorganized. Aggressive tone Mood/Affect: Patient reports their mood is "ok", affect is constricted. Suicidality/Homicidality: Patient denies suicidal ideation, denies any homicidal ideations Perceptions: Patient denies any visual hallucinations and denies any auditory hallucinations, however he appears to be overtly attending to internal stimuli. Though content/process: There is evidence of bizarre delusional thought content and thought process is disorganized. Paranoid. Memory and concentration: AOX3. Attention grossly intact. Judgment and insight: Very poor and chronically limited IMPRESSIONS: Schizophrenia Noncompliance with treatment PLAN: -Patient is admitted under involuntary pet/cert status to MHU for stabilization of psychiatric symptoms and safety and is a SNF HOLD. A second certification was completed and along with petition will be filed for court. A third certificate will need to be completed once patient has a court date. -Medications: Start Thorazine 50 mg twice a day scheduled for psychosis Trazodone 100 mg daily at bedtime when necessary for insomnia. We'll continue tapering off Klonopin TID for anxiety/agitation. Decrease and we will be tapering off Seroquel at 50 mg QHS for psychosis Ativan 1 mg po/IM Q6H PRN and Thorazine 50 mg po/IM Q6H PRN for agitation. -The patient did not, was not agreeable to sign the medication consent form -NRT - not needed because he came from alf - on board for discharge planning. Encourage patient to participate in groups to work on coping skills. Will await deferral and court date. Air Pumper will complete the third certificate once we have a court date scheduled.
[2023-10-09] MEDS: chlorproMAZINE 25 MG TAB PO SCH ×2 (13:41→21:20)
[2023-10-09] MEDS ORDERED: chlorproMAZINE 25 MG/ML 2 ML AMP IM PRN (15:07)
[2023-10-09] MEDS: chlorproMAZINE 25 MG TAB PO PRN (18:40)
[2023-10-09] MEDS: LORazepam 1 MG TAB PO PRN (18:40)
[2023-10-09] MEDS ORDERED: QUEtiapine 100 MG TAB PO SCH (21:00)
[2023-10-10] MEDS: clonazePAM 0.5 MG TAB PO SCH ×3 (08:29→21:21)
[2023-10-10] MEDS: PANTOPRAZOLE 40 MG TABLET PO SCH (08:30)
[2023-10-10] MEDS: chlorproMAZINE 25 MG TAB PO SCH ×3 (08:33→21:20)
[2023-10-10] MEDS: IBUPROFEN 600 MG TAB PO PRN (10:01)
--- NOTE | 2023-10-10 14:34 | P.PN ---
Progress Note - Text Progress Note Date: 10/10/23 Interval history: Patient was seen today wandering the hallways, glaring at sign writer hand, was persistent in speaking with sign writer hand today. Patient continues to be fairly demanding, rude and hostile with sign writer hand. He continues to speak about the "7 dimensions" and also spoke about throwing "blood in guts" at several different people as he lifted them off. He continues to be fairly illogical, disorganized and bizarre. Continues to have a threatening posture and continues to write down several things on his paper and also scribble drawings. Closing Coordinator spoke with patient in the lounge with a report checker. He was fairly hostile with sign writer hand and argumentative. Very poor insight and judgment. Poor impulse control. Closing Coordinator attempted to speak with patient about medications however patient was uncooperative and did not answer questions regarding his medications however has been taking them. We did speak about the court process and he will have a court hearing tomorrow. At this time he is denying any suicidal or homicidal ideations, denying any auditory or visual hallucinations. MENTAL STATUS EXAM: General Appearance: Patient appears to be stated age is alert, adequate hygiene. Wearing glasses, facial hair, Behavior: Patient states intensely, is intimidating, uncooperative and argumentative. Demanding Speech: Patient's speech is fluent but disorganized. Aggressive tone Mood/Affect: Patient reports their mood is "fine", affect is constricted. Suicidality/Homicidality: Patient denies suicidal ideation, denies any homicidal ideations Perceptions: Patient denies any visual hallucinations and denies any auditory hallucinations, however he appears to be overtly attending to internal stimuli. Though content/process: There is evidence of bizarre delusional thought content and thought process is disorganized. Paranoid. Memory and concentration: AOX3. Attention grossly intact. Judgment and insight: Very poor and chronically limited IMPRESSIONS: Schizophrenia Noncompliance with treatment PLAN: -Patient is admitted under involuntary pet/cert status to MHU for stabilization of psychiatric symptoms and safety and is a ALF HOLD. A third certificate will need to be completed today -Medications: increase Thorazine 100 mg twice a day scheduled for psychosis/aggression. Trazodone 100 mg daily at bedtime when necessary for insomnia. We'll continue tapering off Klonopin BID for anxiety/agitation. will be tapering off Seroquel at 50 mg QHS for psychosis added depakote 1000 mg qhs for aggression/mood stabilization. Ativan 1 mg po/IM Q6H PRN and Thorazine 50 mg po/IM Q6H PRN for agitation. -NRT - not needed because he came from [facility] - on board for discharge planning. Encourage patient to participate in groups to work on coping skills. Patient did not defer, court will be held tomorrow morning.
[2023-10-10] MEDS: QUEtiapine 50 MG TAB PO SCH ×2 (21:04→21:21)
[2023-10-10] MEDS: DIVALPROEX ER 500 MG TAB.ER.24H PO SCH ×2 (21:04→21:21)
[2023-10-11] MEDS: clonazePAM 0.5 MG TAB PO SCH (08:51)
[2023-10-11] MEDS: chlorproMAZINE 25 MG TAB PO SCH ×2 (08:51→21:29)
[2023-10-11] MEDS: PANTOPRAZOLE 40 MG TABLET PO SCH (08:51)
--- NOTE | 2023-10-11 11:56 | P.PN ---
Progress Note - Text Progress Note Date: 10/11/23 Interval history: Patient was seen today wandering the hallways, glaring at director underwriter sales. Patient was agreeable to be seen in his room today by director underwriter sales and freight broker agent security rover. Patient continues to be fairly demanding, rude and hostile with director underwriter sales. Continues to be fairly disorganized, paranoid delusions and illogical, loose associations. He was attempting to explain several writings on his wall today. He was able to reflect back on court and states that "I was not on a court order" and did not want to talk about medications. He answered most questions inappropriately. He was fairly hostile with director underwriter sales and argumentative. Very poor insight and judgment. Poor impulse control. Route Contractor attempted to speak with patient about medications however patient was uncooperative and did not answer questions regarding his medications. Patient stopped taking medications yesterday. At this time he is denying any suicidal or homicidal ideations, denying any auditory or visual hallucinations. MENTAL STATUS EXAM: General Appearance: Patient appears to be stated age is alert, adequate hygiene. Wearing glasses, facial hair, Behavior: Patient states intensely, is intimidating, uncooperative and argumentative. Demanding Speech: Patient's speech is fluent but disorganized. Aggressive tone Mood/Affect: Patient reports their mood is "ok", affect is constricted. Suicidality/Homicidality: Patient denies suicidal ideation, denies any homicidal ideations Perceptions: Patient denies any visual hallucinations and denies any auditory hallucinations, however he appears to be overtly attending to internal stimuli. Though content/process: There is evidence of bizarre delusional thought content and thought process is disorganized. Paranoid. Memory and concentration: AOX3. Attention grossly intact. Judgment and insight: Very poor and chronically limited IMPRESSIONS: Schizophrenia Noncompliance with treatment PLAN: -Patient is admitted under involuntary pet/cert status to MHU for stabilization of psychiatric symptoms and safety and is a [facility] HOLD. -Medications: increase Thorazine 100 mg twice a day scheduled for psychosis/aggression. patient is now court ordered and if refusing the give IM thorazine Trazodone 100 mg daily at bedtime for insomnia. d/c Klonopin and Seroquel depakote 1000 mg qhs for aggression/mood stabilization. Ativan 1 mg po/IM Q6H PRN and Thorazine po/IM Q6H PRN for agitation. -NRT - not needed because he came from long-term -[facility] on board for discharge planning. Encourage patient to participate in groups to work on coping skills. Patient did not defer, court was held on 10/11, resulted in a court order for mental health treatment. Patient is currently a long-term hold.
[2023-10-11] MEDS ORDERED: traZODone HCL 100 MG TAB PO SCH (21:00)
[2023-10-11] MEDS ORDERED: chlorproMAZINE 25 MG/ML 2 ML AMP IM PRN (21:00)
[2023-10-11] MEDS: DIVALPROEX ER 500 MG TAB.ER.24H PO SCH (21:29)
[2023-10-11] MEDS: LORazepam 1 MG TAB PO PRN (21:29)
[2023-10-12] MEDS: PANTOPRAZOLE 40 MG TABLET PO SCH (11:31)
[2023-10-12] MEDS: chlorproMAZINE 25 MG TAB PO SCH (11:32)
[2023-10-12] MEDS: IBUPROFEN 600 MG TAB PO PRN (12:34)
[2023-10-12] MEDS ORDERED: traZODone HCL 50 MG TAB PO PRN (14:09)
--- NOTE | 2023-10-12 14:12 | P.PN ---
Progress Note - Text Progress Note Date: 10/12/23 Interval history: Patient was seen today sitting in his room, reading a magazine. Patient was n oticed to be fairly tired this morning, slept through his breakfast. Patient was agreeable to be seen in his room today by hand sign writer and geophysics scientist. Patient continues to be fairly delusional, loose associations, appears to be mildly less aggressive with hand sign writer. He was also less intrusive today. He has been wandering the hallways less and less intimidating. Continues to have very poor insight and judgment. He asked briefly about his medications what he is taking, then proceeded to make delusional comments about his medications. Poor impulse control. We spoke briefly about his court order, and he states that it was not the real dog show judge that he talk to and he sets that hand sign writer was a artificial intelligence. At this time he is denying any suicidal or homicidal ideations, denying any auditory or visual hallucinations. MENTAL STATUS EXAM: General Appearance: Patient appears to be stated age is alert, adequate hygiene. Wearing glasses, facial hair, Behavior: Patient states intensely, is intimidating, uncooperative and argumentative. Demanding, bizarre Speech: Patient's speech is fluent but disorganized. Aggressive tone Mood/Affect: Patient reports their mood is "ok", affect is constricted. Suicidality/Homicidality: Patient denies suicidal ideation, denies any homicidal ideations Perceptions: Patient denies any visual hallucinations and denies any auditory hallucinations, however he appears to be overtly attending to internal stimuli. Improving mildly Though content/process: There is evidence of bizarre delusional thought content and thought process is disorganized. Paranoid. Memory and concentration: AOX3. Attention grossly intact. Judgment and insight: Very poor and chronically limited, improving mildly IMPRESSIONS: Schizophrenia Noncompliance with treatment PLAN: -Patient is admitted under involuntary pet/cert status to MHU for stabilization of psychiatric symptoms and safety and is a HALF-WAY HOLD. -Medications: increase Thorazine 150 mg nightly scheduled for psychosis/aggression. patient is now court ordered and if refusing the give IM thorazine Trazodone 50 mg daily at prn bedtime for insomnia. depakote 1000 mg qhs for aggression/mood stabilization. Ativan 1 mg po/IM Q6H PRN and Thorazine po/IM Q6H PRN for agitation. -NRT - not needed because he came from snf - on board for discharge planning. Encourage patient to participate in groups to work on coping skills. Patient did not defer, court was held on 10/11, resulted in a court order for mental health treatment. Patient is currently a snf hold.
[2023-10-12] MEDS ORDERED: chlorproMAZINE 100 MG TAB PO SCH (21:00)
[2023-10-12] MEDS ORDERED: chlorproMAZINE 25 MG TAB PO SCH (21:00)
[2023-10-12] MEDS: DIVALPROEX ER 500 MG TAB.ER.24H PO SCH (21:07)
[2023-10-13] MEDS: chlorproMAZINE 25 MG TAB PO PRN (00:28)
[2023-10-13] MEDS: LORazepam 1 MG TAB PO PRN (00:29)
[2023-10-13] MEDS: PANTOPRAZOLE 40 MG TABLET PO SCH ×2 (09:16→13:11)
[2023-10-13] MEDS ORDERED: chlorproMAZINE 25 MG/ML 2 ML AMP IM PRN (12:00)
--- NOTE | 2023-10-13 12:05 | P.PN ---
Progress Note - Text Progress Note Date: 10/13/23 Interval history: Patient was seen today laying in bed. He awoke today when keno writer / runner and political aide entered the room. He continues to be fairly evasive, has loose associations, appears to be less hostile today with keno writer / runner. He wanted to read several things that he has written on the wall to keno writer / runner. Continues to be fairly bizarre, less inappropriate today. He was also less intrusive today. Patient required prn thorazine last night however did take he PO dose. appears to be less intimidating. Continues to have very poor insight and judgment. Poor impulse control. At this time he is denying any suicidal or homicidal ideations, denying any auditory or visual hallucinations. MENTAL STATUS EXAM: General Appearance: Patient appears to be stated age is alert, adequate hygiene. Wearing glasses, facial hair, Behavior: Patient states intensely, is intimidating, uncooperative and argumenta tive less. Demanding, bizarre, mildly improving. Speech: Patient's speech is fluent but disorganized. Less aggressive Mood/Affect: Patient reports their mood is "ok", affect is constricted. Suicidality/Homicidality: Patient denies suicidal ideation, denies any homicidal ideations Perceptions: Patient denies any visual hallucinations and denies any auditory hallucinations Though content/process: There is evidence of bizarre delusional thought content and thought process is disorganized. Paranoid, improving mildly Memory and concentration: AOX3. Attention grossly intact. Judgment and insight: Very poor and chronically limited, improving mildly IMPRESSIONS: Schizophrenia Noncompliance with treatment PLAN: -Patient is admitted under involuntary pet/cert status to MHU for stabilization of psychiatric symptoms and safety and is a ALF HOLD. -Medications: increase Thorazine 200 mg nightly scheduled for psychosis/aggression. patient is now court ordered and if refusing the give IM thorazine Trazodone 50 mg daily at prn bedtime for insomnia. depakote 1000 mg qhs for aggression/mood stabilization Ativan 1 mg po/IM Q6H PRN and Thorazine po/IM Q6H PRN for agitation. -NRT - not needed because he came from snf - on board for discharge planning. Encourage patient to participate in groups to work on coping skills. Patient did not defer, court was held on 10/11, resulted in a court order for mental health treatment. Patient is currently a snf hold. likely discharge mid next week if patient is more stabilized with his medications.
[2023-10-13] MEDS: DIVALPROEX ER 500 MG TAB.ER.24H PO SCH (20:37)
[2023-10-13] MEDS: chlorproMAZINE 100 MG TAB PO SCH (20:52)
[2023-10-13] MEDS ORDERED: chlorproMAZINE 25 MG TAB PO SCH ×2 (21:00)
[2023-10-14] MEDS: PANTOPRAZOLE 40 MG TABLET PO SCH (09:23)
--- NOTE | 2023-10-14 11:25 | P.PN ---
Progress Note - Text Interval history: Patient was seen [wandering the hallways] and was directable and agreeable to speak with contract technical writer. Patient states that he is from the future. States I'm afraid that they use me and sleepwalk me" and they want me" when asked about hallucinations, he responds "I am the voice" he later points to veins on his arms and asks if he is a burden. He also states that a lot of women want to have intercourse with him and he gets them intense orgasms. At this time patient denies any suicidal or homicidal ideations intent or plan. Denies any Auditory or visual hallucinations. Patient denies any side effects from the medications and has been compliant with meds. Mental status exam: General Appearance: [Patient appears to be older than stated age is alert, directable, and cooperative.] Behavior: intrusive, agitated at times Speech: Patient's speech is fluent Mood/Affect: Mood is "I have thoughts of fear" affect is constricted. Suicidality/Homicidality: Patient denies having any suicidal or homicidal ideation intent or plan. Perceptions: When asked about hallucinations, he responds "I am the voice " Though content/process: very delusional Memory and concentration: AOX3, grossly intact for the purposes of this session Judgment and insight: poor Assessment/Plan: Continue with current diagnosis. Patient continues to meet criteria for inpatient psychiatric admission for symptom stabilization and safety.[Patient will be maintained on current psychotropic medication regimen.] Monitor for medication compliance and for any psychotropic medication side effects. Will continue to monitor ongoing response to treatment. Encouraged participation in milieu.
[2023-10-14] MEDS: chlorproMAZINE 100 MG TAB PO SCH (20:22)
[2023-10-14] MEDS: DIVALPROEX ER 500 MG TAB.ER.24H PO SCH (20:22)
[2023-10-15] MEDS: MAG HYDROX/AL HYDROX/SIMETH 30 ML CUP PO PRN ×2 (03:05→15:46)
[2023-10-15] MEDS ORDERED: chlorproMAZINE 25 MG TAB PO SCH (09:00)
[2023-10-15] MEDS: PANTOPRAZOLE 40 MG TABLET PO SCH (09:07)
[2023-10-15] MEDS ORDERED: chlorproMAZINE 25 MG/ML 2 ML AMP IM PRN (09:41)
--- NOTE | 2023-10-15 09:48 | P.PN ---
Progress Note - Text Interval history: Patient was seen in his room and was directable and agreeable to speak with typewriter ribbon winder. Reports hallucinations. States that he is hearing someone yelling and thinks that it may be the typewriter ribbon winder. States that earlier, he was yelling about a famous musician. States that someone is putting sulfuric acid in his stomach. Also states that he is indestructible. At this time patient denies any suicidal or homicidal ideations intent or plan. Patient denies any side effects from the medications and has been compliant with meds. Mental status exam: General Appearance: [Patient appears to be older than stated age is alert, directable. His room is filled with writings all over the wall Behavior: [No agitated behavior. Patient is calm and directable] Speech: Patient's speech is fluent and nonpressured. Mood/Affect: Mood is improving mildly, affect is congruent and constricted. Suicidality/Homicidality: Patient denies having any suicidal or homicidal ideation intent or plan. Perceptions: Reports auditory and visual hallucinations. Responding to internal stimuli. Though content/process: Thought process is goal-directed. Grandiose and paranoid delusions elicited. Memory and concentration: AOX3, grossly intact for the purposes of this session Judgment and insight: Poor Assessment/Plan: Continue with current diagnosis. Patient continues to meet criteria for inpatient psychiatric admission for symptom stabilization and safety. We will add Thorazine 50 mg daily to his regimen. Monitor for medicat ion compliance and for any psychotropic medication side effects. Will continue to monitor ongoing response to treatment. Encouraged participation in milieu.
[2023-10-15] MEDS: chlorproMAZINE 25 MG TAB PO SCH (13:18)
[2023-10-15] MEDS: DIVALPROEX ER 500 MG TAB.ER.24H PO SCH (20:35)
[2023-10-15] MEDS: chlorproMAZINE 100 MG TAB PO SCH (20:35)
[2023-10-16] MEDS: chlorproMAZINE 25 MG TAB PO SCH (09:28)
[2023-10-16] MEDS: PANTOPRAZOLE 40 MG TABLET PO SCH (09:28)
--- NOTE | 2023-10-16 13:45 | P.PN ---
Progress Note - Text Progress Note Date: 10/16/23 Interval history: Patient was seen today laying in bed and also wandering the hallways. He asked more politely today to speak with video game script writer. He was agreeable to speak to video game script writer after lunch today in the lounge. He states that he is doing a bit better since the weekend. He appears to have a calmer affect, less bizarre and less intimidating and confrontational. He continues to speak about "magic" and had some loose associations. He was more focused on his medications today and the amount of pills that he is taking. He is also concerned with the prn medications despite video game script writer explaining to him the use of them and how they were ordered.. He is not responding to internal stimuli. He has been eating fairly and sleeping at nighttime. Continues to have very poor insight and judgment, this is improving mildly. At this time he is denying any suicidal or homicidal ideations, denying any auditory or visual hallucinations. MENTAL STATUS EXAM: General Appearance: Patient appears to be stated age is alert, adequate hygiene. Wearing glasses, facial hair, Behavior: Patient states intensely, is less intimidating, more cooperative today. Less demanding Speech: Patient's speech is fluent but disorganized. Less aggressive, improving Mood/Affect: Patient reports their mood is "ok", affect is constricted. Suicidality/Homicidality: Patient denies suicidal ideation, denies any homicidal ideations Perceptions: Patient denies any visual hallucinations and denies any auditory hallucinations Though content/process: Patient continues to be somewhat delusional, less bizarre today. Paranoid, improving mildly Memory and concentration: AOX3. Attention grossly intact. Judgment and insight: poor and chronically limited, improving mildly IMPRESSIONS: Schizophrenia Noncompliance with treatment PLAN: -Patient is admitted under involuntary status to MHU for stabilization of psychiatric symptoms and safety and is a LONG-TERM HOLD. -Medications: increase Thorazine 200 mg nightly + 100 mg daily scheduled for psychosis/aggression. patient is now court ordered and if refusing the give IM t horazine Trazodone 50 mg daily at prn bedtime for insomnia. depakote 1000 mg qhs for aggression/mood stabilization Ativan 1 mg po/IM Q6H PRN and Thorazine po/IM Q6H PRN for agitation. -NRT - not needed because he came from intermediate -[facility] on board for discharge planning. Encourage patient to participate in groups to work on coping skills. Patient did not defer, court was held on 10/11, resulted in a court order for mental health treatment. Patient is currently a intermediate hold. likely discharge monday back to intermediate if patient is more stabilized with his medications.
[2023-10-16] MEDS: DIVALPROEX ER 500 MG TAB.ER.24H PO SCH (21:56)
[2023-10-16] MEDS: chlorproMAZINE 100 MG TAB PO SCH (21:56)
[2023-10-17] MEDS ORDERED: chlorproMAZINE 100 MG TAB PO SCH (09:00)
[2023-10-17] MEDS: PANTOPRAZOLE 40 MG TABLET PO SCH (09:04)
[2023-10-17 09:19] VITALS: BP 123/59; PULSE 91; RESP 16; TEMP 97.1
--- NOTE | 2023-10-17 12:37 | P.PN ---
Progress Note - Text Progress Note Date: 10/17/23 Interval history: Patient was seen today in [facility]. He was agreeable to speak to scientific writer in patient room. He states that he is doing a bit better. He appears to have a calmer affect, less bizarre and less intimidating and confrontational. He continues to speak about "magic" and had some loose associations. He appears to continue to be delusional and make some bizarre statements about his medications and beleives that "someone else took them" however patient was able to keep a good flow of conversation going, and was more approriate today. He is not responding to internal stimuli. He has been eating fairly well and sleeping at nighttime. Continues to have very poor insight and judgment, this is improving mildly. At this time he is denying any suicidal or homicidal ideations, denying any auditory or visual hallucinations. MENTAL STATUS EXAM: General Appearance: Patient appears to be stated age is alert, adequate hygiene. Wearing glasses, facial hair, Behavior: Patient stares intensely, is less intimidating, more cooperative today. Less demanding Speech: Patient's speech is fluent but is improving. Mood/Affect: Patient reports their mood is "pretty good", affect is constricted. improving mildly Suicidality/Homicidality: Patient denies suicidal ideation, denies any homicidal ideations Perceptions: Patient denies any visual hallucinations and denies any auditory hallucinations Though content/process: Patient continues to be somewhat delusional, less bizarre today, more appropriate. Paranoid, improving mildly Memory and concentration: AOX3. Attention grossly intact. Judgment and insight: chronically limited/poor, improving mildly IMPRESSIONS: Schizophrenia Noncompliance with treatment PLAN: -Patient is admitted under involuntary status to MHU for stabilization of psychiatric symptoms and safety and is a LONGTERM HOLD. -Medications: increase Thorazine 200 mg nightly + 200 mg daily scheduled for psychosis/aggression. patient is now court ordered and if refusing the IM thorazine Trazodone 50 mg daily at prn bedtime for insomnia. depakote 1000 mg qhs for aggression/mood stabilization Ativan 1 mg po/IM Q6H PRN and Thorazine po/IM Q6H PRN for agitation. -NRT - not needed because he came from shelter - on board for discharge planning. Encourage patient to participate in groups to work on coping skills. Patient did not defer, court was held on 10/11, resulted in a court order for mental health treatment. Patient is currently a shelter hold. likely discharge tomorrow back to shelter if patient is more stabilized with his medications.
[2023-10-17] MEDS ORDERED: chlorproMAZINE 100 MG TAB PO ONE (14:00)
[2023-10-17] MEDS: chlorproMAZINE 100 MG TAB PO SCH (21:14)
[2023-10-17] MEDS: DIVALPROEX ER 500 MG TAB.ER.24H PO SCH (21:15)
[2023-10-17] MEDS: LORazepam 1 MG TAB PO PRN (21:36)
[2023-10-18] MEDS: PANTOPRAZOLE 40 MG TABLET PO SCH (08:47)
[2023-10-18] MEDS ORDERED: chlorproMAZINE 100 MG TAB PO SCH (09:00)
[2023-10-18] MEDS ORDERED: BENZTROPINE MESYLATE 0.5 MG TAB PO SCH (10:30)
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
[2023-10-18 15:19] VITALS: BMI 29.7
== END 2023-10-18 15:34 | DRG 885 ==
LOC: EC 11:17 → 3MHU 14:12
PROVIDERS: ADMIT Psychiatry & Neurology Psychiatry; ATTEND Psychiatry & Neurology Psychiatry
DX: F20.9 Schizophrenia, unspecified (principal); T43.596A Underdosing of other antipsychotics and neuroleptics, initial encounter; K21.9 Gastro-esophageal reflux disease without esophagitis; J45.990 Exercise induced bronchospasm; F31.9 Bipolar disorder, unspecified; R45.1 Restlessness and agitation; F17.290 Nicotine dependence, other tobacco product, uncomplicated; F41.9 Anxiety disorder, unspecified; Z91.128 Patient's intentional underdosing of medication regimen for other reason; Z91.199 Patient's noncompliance with other medical treatment and regimen due to unspecified reason; Z11.52 Encounter for screening for COVID-19; Z88.0 Allergy status to penicillin; Z88.8 Allergy status to other drugs, medicaments and biological substances; Z88.7 Allergy status to serum and vaccine; Z79.899 Other long term (current) drug therapy; Z65.3 Problems related to other legal circumstances
CPT/HCPCS: 80306; 81003; 82075; 87635; 96372; 99285